=== PATIENT | female | born 1965 | race Caucasian/White ===

== ENCOUNTER 2022-03-03 07:35 | Outpatient (CLI) | payer OTHER, SELFPAY ==
[2022-03-03 10:15] LABS: Albumin* 4.4 g/dL (3.3-5.0)
[2022-03-03 10:16] LABS: Chloride* 102 mmol/L (96-114); Potassium* 4.2 mmol/L (3.6-5.1); Sodium* 134 mmol/L (135-149)
[2022-03-03 10:18] LABS: Carbon Dioxide* 19 mmol/L (20-32); Cholesterol* 238 mg/dL (90-199); Creatinine* 0.9 mg/dL (0.5-1.5); Estimated Glomerular Filt Rate 76 ml/min
[2022-03-03 10:19] LABS: Alanine Aminotransferase* 28 U/L (4-35); Alkaline Phosphatase* 53 U/L (40-150); Aspartate Amino Transferase* 34 U/L (12-35); Blood Urea Nitrogen* 29 mg/dL (7-30); Glucose* 163 mg/dL (60-115); Total Protein* 7.8 g/dL (6.0-8.3)
[2022-03-03 10:20] LABS: Calcium* 9.5 mg/dL (8.4-10.6); HDL Cholesterol* 25 mg/dL (>=50)
[2022-03-03 11:39] LABS: Triglycerides* 2804 mg/dL (40-149)
== END 2022-03-03 07:36 | disposition home or self-care (01) ==
PROVIDERS: Visit Provider Family Medicine
DX: E11.9 Type 2 diabetes mellitus without complications (principal); E78.5 Hyperlipidemia, unspecified
CPT/HCPCS: 80053; 80061

== ENCOUNTER 2022-12-11 07:57 | Outpatient (CLI) | payer BC, SELFPAY | END 2022-12-11 07:58 | disposition home or self-care (01) | PROVIDERS: PCP Family Medicine; Visit Provider Family Medicine | DX: E11.9 Type 2 diabetes mellitus without complications (principal); E78.1 Pure hyperglyceridemia; I10 Essential (primary) hypertension | CPT/HCPCS: 80053; 80061 ==

== ENCOUNTER 2023-10-08 08:40 | Outpatient (CLI) | payer BC, SELFPAY ==
--- OUTSIDE RECORDS SUMMARY | 2023-10-15 07:45 | XMS_ITS | Clinical Summary ---
Author Name Unknown Organization [facility] Address [place], [place] [address] Care Team Providers Care Glued Wood Tester Name Role Phone Cathleen Hebert MD Primary [...] by mouth at bedtime. 0 12/13/2016 Active bdkoz-4t-nqh-epa-fish oil (OMEGA-3 FISH OIL) 300-1,000 mg cap [...] LORI BILAT SCREEN Routine 05/13/2022 4:01 PM COMMERCIAL RELIEF DRIVER Encounter for screening mammogram for malignant neoplasm of breast LIPID PANEL Timed 02/23/2005 10:49 AM CDT GYNECOLOGICAL PANEL Timed 04/22/2004 5 :45 PM CDT from Last 3 Months or Most Recently Relevant to Health Maintenance Results * XR MAMMO LORI BILAT SCREEN (05/13/2022 4:01 PM COMMERCIAL RELIEF DRIVER) Anatomical Region Laterality Modality BREASTS, Breast Left, Breast Right Bilateral Mammography Impressions 05/13/2022 4:23 PM COMMERCIAL RELIEF DRIVER ??There is no radiographic evidence for malignancy. ??Recommend annual mammograms. MAMMOGRAM ASSESSMENT: ??ACR 2 Benign PATIENTS: You will also receive a letter with your examination results in an easy to read format. ??If you have questions about your results, please contact your referring provider. Narrative 05/13/2022 4:23 PM COMMERCIAL RELIEF DRIVER For Patients: As a result of the Century Cures Act, medical imaging exams and procedure reports are released immediately into your electronic medical record. You may view this report before your referring provider. If you have questions, please contact your health care provider. XR MAMMO LORI BILAT SCREEN [[id number]] CLINICAL HISTORY: ??This is an asymptomatic 56 [...] CDT) CHOLESTEROL,TOTAL 137 110 - 199 mg/dL [facility] TRIGLYCERIDES 556(H) 40 - 149 mg/dL [facility] HDL CHOLESTEROL 25(L) >40 mg/dL [facility] CHOL/HDL RATIO 5.48(H) <4.51 [facility] LDL CHOLESTEROL ?? Invalid LDL when Trig >400. [facility] PATIENT STATUS Fasting [facility] 02/23/2005 10:4 9 AM CDT 02/23/2005 5:21 PM CDT Dion Rand NP CHEMISTRY [facility] INTERNAL ZIP [address] [address] * GYNECOLOGICAL PANEL (04/22/2004 5:45 PM CDT) CYTOLOGY ??CYTOPATHOLOGY REPORT ??[facility] ??[facility] [address] [address] ? Status: Final Report ?[id number] ?? CLINICAL INFORMATION ?Reason for Visit ?: [...] 04/22/04 ?? ACCESSIONED: 04/23/04 ?? SIGNED: 04/24/04 [facility] 04/22/2004 5:45 PM CDT 04/23/2004 11:51 AM CDT Dion Rand NP PATHOLOGY/CYTOLOGY [facility] INTERNAL ZIP [address] [address] from Last 3 Months or Most Recently Relevant to Health Maintenance Care Teams Glued Wood Tester Relationship Specialty Start Date End Date Cathleen Hebert MD [address] [place] [address] PCP - General Family Practice 02/12/21
--- OUTSIDE RECORDS SUMMARY | 2023-10-15 07:45 | XMS_ITS | Clinical Summary ---
Author Name Unknown Organization [facility] Address [address] [place] [address] Phone [email or web address] Care Team Providers Care Entry Clerk Name Role Phone Unavailable Primary Care Provider [...]
--- OUTSIDE RECORDS SUMMARY | 2023-10-15 07:45 | XMS_ITS | Clinical Summary ---
Author Name Unknown Organization [facility] Address [address], [place] [address] Care Team Providers Care Tread Tuber Machine Operator Name Role Phone Cathleen Hebert MD Primary Care Provider Source Comments You are receiving this document as you are listed as the primary care provider,follow-up provider, or the patient has been referred to you for consultation.This is in compliance with the Medicare and[facility] EHR Incentive Program,which states Providers who transition their patient to another setting of careor provider of care or refers their patient to another provider of care shouldprovide summary care record for each transition of care or referral. [facility] Allergies No known active allergies Medications Medication [...] Recently Relevant to Health Maintenance Care Teams Tread Tuber Machine Operator Relationship Specialty Start Date End Date Cathleen Hebert MD [address] [place] [address] PCP - General Family Practice 04/01/22
--- OUTSIDE RECORDS SUMMARY | 2023-10-15 07:45 | XMS_ITS | Data Portability ---
Author Name Unknown Address [address] [place] [address] Phone [phone] Organization [facility], Main Office Address [address] [facility] [place] [address] Assessment Encounter Date Assessment Date Assessment LastModified by Organization Details LastModified Time 07/13/2022 07/13/2022 1. Basal carcinoma left forehead here for Mohs surgery Written and verbal informed consent obtained Verbally and with the digital board we discussed the length of the scar versus the width of the scar potential eyebrow elevation. Swelling, bruising, chance of infection chance of recurrence. Mohs case number [id number] Stage I: Curette debulking performed after local anesthesia was obtained 1% lidocaine with epinephrine after being cleansed with alcohol. 1 to 1/2 mm margins were taken revealing residual basal carcinoma at 1:00 and inflammation at 7:00 Stage II: No debulking performed. Peripheral rim from 11:00 to 3:00 taken through 1:00 and rim was taken from 9:00 to 7:00. There is no residual basal carcinoma Total stages 2 total sections 3 Final defect 1.5 cm Redundancy removed superior and laterally based advancement flap was performed. Undermined all directions 1 to 2 cm. 0 cm squared. Hemostasis obtained electrocautery closed with 3-0 Vicryl and a 3-0 Prolene to be removed in 8 days in [place]. Pressure dressing applied typewritten verbal wound care instructions given. [email or web address] Not available 07/18/2022 08:31:29 Plan of Treatment Reminders Order Date Submit Date Provider Last Modified By Organization Details Last Modified Time Details Appointments None record ed. Lab None record ed. Referral None record ed. Procedures None record ed. Surgeries None record ed. Imaging None record ed. Medication Orders None record ed. Patient TargetsNo targets recorded. Patient InstructionsNo instructions recorded. Reason for Referral None Reported. Results Created Date Observation Date Name Description Value Unit Range Abnormal Flag LastModifiedBy Organization Detail LastModifiedTime Result Notes None recorded. Medical Equipment None Reported. Medications Name Sig Start Date Stop Date Status Note LastModified by Organization Details LastModified Time hydrocodone 5 mg-acetamino phen 325 mg tablet TAKE 1 TABLET BY MOUTH EVERY 6 HOURS active Not Available Not Available No t Available minocycline 100 mg capsule TAKE 1 CAPSULE BY MOUTH EVERY 12 HOURS active Not Available Not Available No t Available sulfamethoxa zole 800 mg-trimethop rim 160 mg tablet TAKE 1 TABLET BY MOUTH TWICE DAILY active Not Available Not Available No t Available glimepiride 2 mg tablet TAKE 1 TABLET BY MOUTH DAILY active Not Available Not Available Not Available carvedilol 3.125 mg tablet TAKE 1 TABLET BY MOUTH TWICE DAILY active Not Available Not Available No t Available glimepiride 1 mg tablet TAKE 1 TABLET BY MOUTH EVERY MORNING WITH FOOD active Not Available Not Available No t Available amlodipine 10 mg tablet TAKE 1 TABLET BY MOUTH DAILY active Not Available Not Available Not Available gemfibrozil 600 mg tablet TAKE 1 TABLET BY MOUTH TWICE DAILY BEFORE MEALS active Not Available Not Available No t Available metformin 1,000 mg tablet TAKE 1 TABLET BY MOUTH TWICE DAILY WITH A MEAL active Not Available Not Available No t Available glimepiride 4 mg tablet TAKE 1 TABLET BY MOUTH DAILY active Not Available Not Available Not Available hydrochlorot hiazide 25 mg tablet TAKE 1 TABLET BY MOUTH DAILY active Not Available Not Available Not Available mupirocin 2 % topical ointment APPLY SMALL AMOUNT TOPICALLY TO THE AFFECTED AREA THREE TIMES DAILY active Not Available Not Available Not Available lisinopril 40 mg tablet TAKE 1 TABLET BY MOUTH DAILY active Not Available Not Available Not Available rosuvastatin 40 mg tablet TAKE 1 TABLET BY MOUTH DAILY active Not Available Not Available Not Available omega-3 acid ethyl esters 1 gram capsule TAKE FOUR CAPSULES DAILY active Not Available Not Available No t Available fenofibrate 160 mg tablet TAKE 1 TABLET BY MOUTH DAILY active Not Available Not Available Not Available BD Ultra-Fine Short Pen Needle 31 gauge x 5/16 USE DAILY active Not Available Not Available No t Available fenofibrate nanocrystall ized 145 mg tablet TAKE 1 TABLET BY MOUTH DAILY active Not Available Not Available Not Available Sure Comfort Pen Needle 30 gauge x 5/16 DIRECTED active Not Available Not Available Not Available Jardiance 25 mg tablet TAKE 1 TABLET BY MOUTH DAILY active Not Available Not Available Not Available Zhenaglmichelle ChangPen U-100 Insulin 100 unit/mL (3 mL) subcutaneous ADMINISTER 55 UNITS UNDER THE SKIN EVERY NIGHT AT BEDTIME active Not Available Not Available No t Available Vitals None Recorded Social History None recorded. Functional Status None recorded. Mental Status None recorded. Family History Nothing Reported. Medical History No medical history recorded. Gynecological HistoryNo gynecological history recorded. Obstetrics History GPAL:G 0 P 0 0 0 0 Past Encounters Encounter ID Performer Location Encounter Start Date Encounter Closed Date Diagnosis/Indication Diagnosis SNOMED-CT Code [id number] Daniel Kuhn MD Main Office [address] [facility] [address] [place] [address] 07/13/2022 10:00:55 07/18/2022 08:32:34 Basal cell carcinoma of forehead [id number] Health Concerns Section Related Observation LastModified by Organization Detai ls LastModified Time None Recorded Concern Status LastModified by Organization Details LastModified Time None Recorded Advance Directives Directive None Recorded Payers Encounter Date Sequence Insurance Name Policy Number Policy Galvan Covered Member ID Galvan Member ID Guarantor Name 07/13/2022 1 [facility] Valencia Castillo [id number] Beatriz Castillo Notes Date Note Type Note Provider Name and Address Organization Details Recorded Time 07/13/2022 text/html HPI Notes: 56-year-old female presents today for follow-up and Mohs surgery for biopsy-proven basal carcinoma left forehead. Accompanied by her during the preoperative consultation, the informed consent and stage I. He is not present for stage II and the closure he is in a separate room Her past medical history, family history and social history unchanged Daniel Kuhn MD [address] [facility], [place], [address], [facility] 07/18/2022 08:32:14 OBGyn Episode No OBEpisode recorded.
--- OUTSIDE RECORDS SUMMARY | 2023-10-15 07:46 | XMS_ITS | Encounter Summary ---
Author Name Unknown Organization [facility] Address [address] [place] [address] Care Team Providers Care Receiving Dock Checker Name Role Phone Daisy Radford PA-C Primary Care Pr ovider Daisy Radford PA-C Unavailable Encounter Details Date Type Department Care Team (Late st Contact Info) Description 03/05/2020 My[facility] Medical Advice [address] [address] Praveena Juares APRN BOW REHAIRER [address] [place] [address] [address] [place] [address] Social History Tobacco Use Types Packs/Day Years Used Date Smoking Tobacco: Never Smokeless Tobacco: Never Comments:NA Alcohol Use Standard Drinks/Week Comments No 0 (1 standard drink = 0.6 oz pur e alcohol) occasionally PHQ-2 Answer Date Recorded PHQ-2 Score 0 10/24/2018 Sex and Gender Information Value Date Recorded Sex Assigned at Female 07/06/2018 4:08 PM HAND STRIPER Gender Identity Female 07/06/2018 4:08 PM HAND STRIPER Sexual Orientation Straight 07/06/2018 4: 08 PM HAND STRIPER documented as of this encounter Plan of Treatment Not on file documented as of this encounter Visit Diagnoses Not on filedocumented in this encounter Care Teams Receiving Dock Checker Relationship Specialty Start Date End Date Daisy Radford PA-C [address] [place] [address] PCP - General Physician Four Slide Operator 12/19/13 Daisy Radford PA-C [address] [place] [address] Assigned PCP 12/24/13 05/15/22 documented as of this encounter
--- OUTSIDE RECORDS SUMMARY | 2023-10-15 07:46 | XMS_ITS | Encounter Summary ---
Author Name Unknown Organization [facility] Address [address] [place] [address] Care Team Providers Care Director Transition Name Role Phone Daisy Radford PA-C Primary Care Pr ovider Daisy Radford PA-C Unavailable Reason for Visit * Reason Onset Date Comments Forms 10/27/2019 Encounter Details Date Type Department Care Team (Late st Contact Info) Description 10/27/2019 MyC Medical Advice [address] [address] Daisy Radford PA-C [id number] [place] [address] Forms Social History Tobacco Use Types Packs/Day Years Used Date Smoking Tobacco: Never Smokeless Tobacco: Never Comments:NA Alcohol Use Standard Drinks/Week Comments No 0 (1 standard drink = 0.6 oz pur e alcohol) occasionally PHQ-2 Answer Date Recorded PHQ-2 Score 0 10/24/2018 Sex and Gender Information Value Date Recorded Sex Assigned at Female 07/06/2018 4:08 PM MANGLE TENDER Gender Identity Female 07/06/2018 4:08 PM MANGLE TENDER Sexual Orientation Straight 07/06/2018 4: 08 PM MANGLE TENDER documented as of this encounter Plan of Treatment Not on file documented as of this encounter Visit Diagnoses Not on filedocumented in this encounter Care Teams Director Transition Relationship Specialty Start Date End Date Daisy Radford PA-C [address] [place] [address] PCP - General Physician Thermocouple Tester 12/19/13 Daisy Radford PA-C [address] [place] [address] Assigned PCP 12/24/13 05/15/22 documented as of this encounter
--- OUTSIDE RECORDS SUMMARY | 2023-10-15 07:46 | XMS_ITS | Encounter Summary ---
Author Name Unknown Organization [facility] Address [address] [place] [address] Care Team Providers Care Flow Worker Name Role Phone Daisy Radford PA-C Primary Care Pr ovider Daisy Radford PA-C Unavailable Encounter Details Date Type Department Care Team (Late st Contact Info) Description 11/07/2019 MyC Medical Advice [address] [address] Maddie Lange RN Social History Tobacco Use Types Packs/Day Years Used Date Smoking Tobacco: Never Smokeless Tobacco: Never Comments:NA Alcohol Use Standard Drinks/Week Comments No 0 (1 standard drink = 0.6 oz pur e alcohol) occasionally PHQ-2 Answer Date Recorded PHQ-2 Score 0 10/24/2018 Sex and Gender Information Value Date Recorded Sex Assigned at Female 07/06/2018 4:08 PM HAY SORTER Gender Identity Female 07/06/2018 4:08 PM HAY SORTER Sexual Orientation Straight 07/06/2018 4: 08 PM HAY SORTER documented as of this encounter Plan of Treatment Not on file documented as of this encounter Visit Diagnoses Not on filedocumented in this encounter Care Teams Flow Worker Relationship Specialty Start Date End Date Daisy Radford PA-C [id number] [place] [address] PCP - General Physician Head Of Integrated Media 12/19/13 Daisy Radford PA-C [address] [place] [address] Assigned PCP 12/24/13 05/15/22 documented as of this encounter
--- OUTSIDE RECORDS SUMMARY | 2023-10-15 07:46 | XMS_ITS | Encounter Summary ---
Author Name Unknown Organization [facility] Address [address] [place] [address] Care Team Providers Care Plaster Die Maker Name Role Phone Jaden Barrett MD Primary Care Provider Daisy Radford PA-C Primary Care Pr ovider Sherry Gutierrez RN Unavailable Daisy Radford PA-C Unavailable Daisy Radford PA-C Unavailable Encounter Details Date Type Department Care Team (Late st Contact Info) Description 10/19/2010 MyC Medical Advice [facility] [id number] [place] [address] Jaden Barrett MD [address] [place] [address] Social History Tobacco Use Types Packs/Day Years Used Date Smoking Tobacco: Never Smokeless Tobacco: Never Alcohol Use Standard Drinks/Week Comments Yes 0 (1 standard drink = 0.6 oz pur e alcohol) occasionally Sex and Gender Information Value Date Recorded Sex Assigned at Female 07/06/2018 4:08 PM SPAR CAP BEVELER Gender Identity Female 07/06/2018 4:08 PM SPAR CAP BEVELER Sexual Orientation Straight 07/06/2018 4: 08 PM SPAR CAP BEVELER documented as of this encounter Plan of Treatment Not on file documented as of this encounter Visit Diagnoses Not on filedocumented in this encounter Care Teams Plaster Die Maker Relationship Specialty Start Date End Date Jaden Barrett MD PCP - General 07/02/06 12/18/13 Daisy Radford PA-C [address] [place] [address] PCP - General Physician Irrigation Installation Specialist 12/19/13 Daisy Radford PA-C [address] [place] [address] PCP - Assigned PCP 12/24/13 08/30/18 Sherry Gutierrez RN Clinic Arc Welding Machine Operator Primary Care - CC 10/11/1709/26 Daisy Radford PA-C [address] [place] [address] Assigned PCP 12/24/13 05/15/22 documented as of this encounter
--- OUTSIDE RECORDS SUMMARY | 2023-10-15 07:46 | XMS_ITS | Encounter Summary ---
Author Name Unknown Organization [facility] Address [address] [place] [address] Care Team Providers Care Monomer Recovery Operator Name Role Phone Jaden Barrett MD Primary Care Provider Daisy Radford PA-C Primary Care Pr ovider Sherry Gutierrez RN Unavailable Daisy Radford PA-C Unavailable Daisy Radford PA-C Unavailable Encounter Details Date Type Department Care Team (Late st Contact Info) Description 06/07/[address] [address] [facility] Social History Tobacco Use Types Packs/Day Years Used Date Smoking Tobacco: Never Smokeless Tobacco: Never Alcohol Use Standard Drinks/Week Comments Yes 0 (1 standard drink = 0.6 oz pur e alcohol) occasionally Sex and Gender Information Value Date Recorded Sex Assigned at Female 07/06/2018 4:08 PM CORPORATE TAX PREPARER Gender Identity Female 07/06/2018 4:08 PM CORPORATE TAX PREPARER Sexual Orientation Straight 07/06/2018 4: 08 PM CORPORATE TAX PREPARER documented as of this encounter Plan of Treatment Not on file documented as of this encounter Visit Diagnoses Not on filedocumented in this encounter Care Teams Monomer Recovery Operator Relationship Specialty Start Date End Date Nena Jaden [place] MD PCP - General 07/02/06 12/18/13 Daisy Radford PA-C [address] [place] [address] PCP - General Physician Produce Shipper 12/19/13 Daisy Radford PA-C [address] [place] [address] PCP - Assigned PCP 12/24/13 08/30/18 Sherry Gutierrez RN Clinic Transformation Manager Primary Care - CC 10/11/1709/26 Daisy Radford PA-C [address] [place] [address] Assigned PCP 12/24/13 05/15/22 documented as of this encounter
--- OUTSIDE RECORDS SUMMARY | 2023-10-15 07:46 | XMS_ITS | Referral Summary ---
Author Name Unknown Organization [facility] Address [address] [place] [address] Care Team Providers Care Application Packaging Consultant Name Role Phone Daisy Radford PA-C [...] Sex Assigned at Female 07/06/2018 4:08 PM PLATE HANGER Gender Identity Female 07/06/2018 4:08 PM PLATE HANGER Sexual Orientation Straight 07/06/2018 4: 08 PM PLATE HANGER Last Filed Vital Signs Vital Sign Reading Time Taken Comments Blood Pressure 139/82 05/15/2019 8:37 AM PLATE HANGER Pulse 86 05/15/2019 8:37 AM PLATE HANGER Temperature 36.7 ??C (98 ??F) 05/15/2019 8:37 AM PLATE HANGER Respiratory Rate 17 05/15/2019 8:37 AM PLATE HANGER Oxygen Saturation 98% 05/15/2019 8:37 AM PLATE HANGER Inhaled Oxygen Concentration - - Weight 88.7 kg (195 lb 9.6 oz) 05/15/2019 8:37 A M PLATE HANGER Height 163.8 cm (5' 4.5) 05/15/2019 8:37 AM PLATE HANGER Body Mass Index 33.06 05/15/2019 8:37 AM PLATE HANGER Plan of Treatment Not on file Advance Directives For more information, please contact: [phone] * Full Code (Latest Code Status on File) Date Activated Date Inactivated Comments 10/08/2017 7:25 AM * Full Code Date Activated Date Inactivated Comments 10/04/2017 11:55 PM 10/08/2017 7:25 AM Care Teams Application Packaging Consultant Relationship Specialty Start Date End Date Daisy Radford PA-C [address] [place] [address] PCP - General Physician Loan Documents Closer 12/19/13
--- OUTSIDE RECORDS SUMMARY | 2023-10-15 07:46 | XMS_ITS | Encounter Summary ---
Author Name Unknown Organization [facility] Address [address] [place] [address] Care Team Providers Care Digital Media Specialist Name Role Phone Daisy Radford PA-C Primary Care Pr ovider Daisy Radford PA-C Unavailable Daisy Radford PA-C Unavailable Encounter Details Date Type Department Care Team (Late st Contact Info) Description 04/05/2018 MyC Medical Advice [address] [address] Praveena Juares, LEEANNA HOLTER TECHNICIAN [address] [place] [address] [address] [place], [place] [address] Social History Tobacco Use Types Packs/Day Years Used Date Smoking Tobacco: Never Smokeless Tobacco: Never Comments:NA Alcohol Use Standard Drinks/Week Comments No 0 (1 standard drink = 0.6 oz pur e alcohol) occasionally Sex and Gender Information Value Date Recorded Sex Assigned at Female 07/06/2018 4:08 PM WOOD HEEL ATTACHER Gender Identity Female 07/06/2018 4:08 PM WOOD HEEL ATTACHER Sexual Orientation Straight 07/06/2018 4: 08 PM WOOD HEEL ATTACHER documented as of this encounter Plan of Treatment Not on file documented as of this encounter Visit Diagnoses Not on filedocumented in this encounter Care Teams Digital Media Specialist Relationship Specialty Start Date End Date Daisy Radford PA-C [address] [place] [address] PCP - General Physician Orthotic Fitter 12/19/13 Daisy Radford PA-C [address] [place] [address] PCP - Assigned PCP 12/24/13 08/30/18 Daisy Radford PA-C [address] [place] [address] Assigned PCP 12/24/13 05/15/22 documented as of this encounter
--- OUTSIDE RECORDS SUMMARY | 2023-10-15 07:46 | XMS_ITS | Encounter Summary ---
Author Name Unknown Organization [place] Address [address] [place] [address] Care Team Providers Care Email Designer Name Role Phone Diogo Kirk MD Primary Care Provider Daisy Radford PA-C Primary Care Pr ovider Sherry Gutierrez RN Unavailable Daisy Radford PA-C Unavailable Daisy Radford PA-C Unavailable Encounter Details Date Type Department Care Team (Late st Contact Info) Description 02/28/2010 Office Visit-[facility] [address] [place] [phone] Antonio Caceres MD Social History Tobacco Use Types Packs/Day Years Used Date Smoking Tobacco: Never Alcohol Use Standard Drinks/Week Comments Yes 0 (1 standard drink = 0.6 oz pur e alcohol) occasional Sex and Gender Information Value Date Recorded Sex Assigned at Female 07/06/2018 4:08 PM RETORT CONDENSER ATTENDANT Gender Identity Female 07/06/2018 4:08 PM RETORT CONDENSER ATTENDANT Sexual Orientation Straight 07/06/2018 4: 08 PM RETORT CONDENSER ATTENDANT documented as of this encounter Progress Notes * Antonio Caceres MD - 03/04/2010 2:03 PM CDT Progress Note Created by: Antonio Caceres M.D. DATE: 02/28/2010 BEATRIZ CHAUHAN DATE OF : 1965 AGE: [id number] years old Referring Physician: DIOGO KIRK Referring Clinic: [facility] CURRENT DIAGNOSES 1. 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 Actually [...] Past Medical Illnesses: pancreatitis Apr 2006, diabetes vbfxylhr-mfu-gglgtmj dependent Surgeries/Procedures - General: hysterectomy-subtotal Jun 2005, [...] Seat Belt Use - always; Occupation - [employer]; Residence - lives with and lives in [place] year round; Place of - [place]; Hours Worked - 40 hours per week; [...] does not really need to see a tumble tailstock turret lathe operator. She may be interested in another jokeor [...] on filedocumented in this encounter Care Teams Email Designer Relationship Specialty Start Date End Date Diogo Kirk MD PCP - General 07/02/06 12/18/13 Daisy Radford PA-C [address] [place] [address] PCP - General Physician Automobile Seat Cover Installer 12/19/13 Dasiy Radford PA-C [address] [place] [address] PCP - Assigned PCP 12/24/13 08/30/18 Sherry Gutierrez RN Clinic Paver Operator Primary Care - CC 10/11/1709/26 Daisy Radford PA-C [address] [place] [address] Assigned PCP 12/24/13 05/15/22 documented as of this encounter
--- OUTSIDE RECORDS SUMMARY | 2023-10-15 07:46 | XMS_ITS | Encounter Summary ---
Author Name Unknown Organization [place] Address [address] [place] [address] Care Team Providers Care Automotive Painter Name Role Phone Daisy Radford PA-C Primary Care Pr ovider Daisy Radford PA-C Unavailable Daisy Radford PA-C Unavailable Encounter Details Date Type Department Care Team (Late st Contact Info) Description 08/19/2018 MyC Medical Advice [address] [phone] Praveena Juares, DIE FINISHER FORGING CHANNEL MACHINE OPERATOR [address] [place] [address] [address] [place], [place] [address] Social History Tobacco Use Types Packs/Day Years Used Date Smoking Tobacco: Never Smokeless Tobacco: Never Comments:NA Alcohol Use Standard Drinks/Week Comments No 0 (1 standard drink = 0.6 oz pur e alcohol) occasionally PHQ-2 Answer Date Recorded PHQ-2 Score 0 07/05/2018 Sex and Gender Information Value Date Recorded Sex Assigned at Female 07/06/2018 4:08 PM VP ACCOUNT DIRECTOR Gender Identity Female 07/06/2018 4:08 PM VP ACCOUNT DIRECTOR Sexual Orientation Straight 07/06/2018 4: 08 PM VP ACCOUNT DIRECTOR documented as of this encounter Plan of Treatment Not on file documented as of this encounter Visit Diagnoses Not on filedocumented in this encounter Care Teams Automotive Painter Relationship Specialty Start Date End Date Daisy Radford PA-C [address] [place] [address] PCP - General Physician Logistic Specialist 12/19/13 Daisy Radford PA-C [address] [place] [address] PCP - Assigned PCP 12/24/13 08/30/18 Daisy Radford PA-C [address] [place] [address] Assigned PCP 12/24/13 05/15/22 documented as of this encounter
--- OUTSIDE RECORDS SUMMARY | 2023-10-15 07:46 | XMS_ITS | Encounter Summary ---
Author Name Unknown Organization [place] Address [address] [place] [address] Care Team Providers Care Patient'S Librarian Name Role Phone Daisy Radford PA-C Primary Care Pr ovider Daisy Radford PA-C Unavailable Reason for Referral * Consultation (Routine) - Closed Specialty Diagnoses / Procedures Referred By Monik gilbert Referred To Contact Diagnoses Hypertriglyceridemia Type 2 diabetes mellitus with other specified complication, with long-term current use of insulin (H) Daisy Radford PA-C [address] [place] [address] MULTIPLE LOCATIONS Referral ID Status Reason Start Date Expiration Date Visits Re quested Visits Authorized [id number] Closed 05/22/2019 05/21/2020 1 1 Comments Your provider has referred you to: [facility]: [facility] [email or web address] [facility]: [facility] [email or web address] [facility]: [email or web address] [facility]: [facility] [email or web address] [facility] Please be aware that coverage of these services is subject to the terms and limitations of your health insurance plan. Call member services at your health plan with any benefit or coverage questions. Please bring the following to your appointment: >> Any x-rays, CTs or MRIs which have been performed. Contact the facility where they were done to arrange for picker prior to your scheduled appointment. >> List of current medications >> This referral request >> Any documents/labs given to you for this referral NG MACHINE OPERATOR Reason for Visit * Reason Onset Date Comments MyChart Communication 05/22/2019 Encounter Details Date Type Department Care Team (Latest Contact Info) Description 05/22/2019 [facility] [address] [phone] Daisy Radford PA-C [id number] [place] [address] MyChart Communication Social History Tobacco Use Types Packs/Day Years Used Date Smoking Tobacco: Never Smokeless Tobacco: Never Comments:NA Alcohol Use Standard Drinks/Week Comments No 0 (1 standard drink = 0.6 oz pur e alcohol) occasionally PHQ-2 Answer Date Recorded PHQ-2 Score 0 10/24/2018 Sex and Gender Information Value Date Recorded Sex Assigned at Female 07/06/2018 4:08 PM TIEING MACHINE OPERATOR Gender Identity Female 07/06/2018 4:08 PM TIEING MACHINE OPERATOR Sexual Orientation Straight 07/06/2018 4: 08 PM TIEING MACHINE OPERATOR documented as of this encounter [...] (H) documented in this encounter Care Teams Patient'S Librarian Relationship Specialty Start Date End Date Daisy Radford PA-C [address] [place] [address] PCP - General Physician Land Development Project Manager 12/19/13 Daisy Radford PA-C [address] [place] [address] Assigned PCP 12/24/13 05/15/22 documented as of this encounter
--- OUTSIDE RECORDS SUMMARY | 2023-10-15 07:46 | XMS_ITS | Encounter Summary ---
Author Name Unknown Organization [facility] Address [address] [place] [address] Care Team Providers Care Fabric Worker Fitter Name Role Phone Jaden Barrett MD Primary Care Provider Daisy Radford PA-C Primary Care Pr ovider Sheryr Gutierrez RN Unavailable Daisy Radford PA-C Unavailable Daisy Radford PA-C Unavailable Encounter Details Date Type Department Care Team (Late st Contact Info) Description 08/12/2010 [facility] [address] [address] [facility] Social History Tobacco Use Types Packs/Day Years Used Date Smoking Tobacco: Never Alcohol Use Standard Drinks/Week Comments Yes 0 (1 standard drink = 0.6 oz pur e alcohol) occasional Sex and Gender Information Value Date Recorded Sex Assigned at Female 07/06/2018 4:08 PM PEDIGREE TRACER Gender Identity Female 07/06/2018 4:08 PM PEDIGREE TRACER Sexual Orientation Straight 07/06/2018 4: 08 PM PEDIGREE TRACER documented as of this encounter Plan of Treatment Not on file documented as of this encounter Visit Diagnoses Not on filedocumented in this encounter Care Teams Fabric Worker Fitter Relationship Specialty Start Date End Date Jaden Barrett MD PCP - General 07/02/06 12/18/13 Daisy Radford PA-C [address] [place] [address] PCP - General Physician Assistant Offset Press Operator 12/19/13 Daisy Radford PA-C [address] [place] [address] PCP - Assigned PCP 12/24/13 08/30/18 Sherry Gutierrez RN Clinic Bowl Attendant Primary Care - CC 10/11/1709/26 Daisy Radford PA-C [address] [place] [address] Assigned PCP 12/24/13 05/15/22 documented as of this encounter
--- OUTSIDE RECORDS SUMMARY | 2023-10-15 07:46 | XMS_ITS | Encounter Summary ---
Author Name Unknown Organization [place] Address [address] [place] [address] Care Team Providers Care Sweet Pickle Maker Name Role Phone Daisy Radford PA-C Primary Care Pr ovider Daisy Radford PA-C Unavailable Daisy Radford PA-C Unavailable Reason for Visit * Reason Comments Medication Refill Amaryl, Crestor Encounter Details Date Type Department Care Team (Late st Contact Info) Description 12/17/[address] [phone] Daisy Radford PA-C [address] [place] [address] Medication Refill (Amaryl, Crestor) Social History Tobacco Use Types Packs/Day Years Used Date Smoking Tobacco: Never Smokeless Tobacco: Never Comments:NA Alcohol Use Standard Drinks/Week Comments No 0 (1 standard drink = 0.6 oz pur e alcohol) occasionally Sex and Gender Information Value Date Recorded Sex Assigned at Female 07/06/2018 4:08 PM PLAY READER Gender Identity Female 07/06/2018 4:08 PM PLAY READER Sexual Orientation Straight 07/06/2018 4: 08 PM PLAY READER documented as of this encounter Miscellaneous Notes [...] if appropriate. Teresa Nova RN, BSN, PHN [facility] RN * Telephone Encounter - Teresa Lemos [...] CDT [facility] with Daisy Radford PA-C [facility] [address] [place] [phone] Passed - Patient has documented LDL [...] CDT Anson Thomason with Daisy Radford PA-C [facility] [address] [place] [phone] documented in this encounter Plan of Treatment Not on file documented as of this encounter Visit Diagnoses Diagnosis Type 2 diabetes mellitus without complication, without long-term current use of insulin (H) Pure hyperglyceridemia Type 2 diabetes mellitus without complication, with long-term current use of insulin (H) documented in this encounter Care Teams Sweet Pickle Maker Relationship Specialty Start Date End Date Daisy Radford PA-C [address] [place] [address] PCP - General Physician Carving Machine Operator 12/19/13 Daisy Radford PA-C [address] [place] [address] PCP - Assigned PCP 12/24/13 08/30/18 Daisy Radford PA-C [address] [place] [address] Assigned PCP 12/24/13 05/15/22 documented as of this encounter
--- OUTSIDE RECORDS SUMMARY | 2023-10-15 07:46 | XMS_ITS | Encounter Summary ---
Author Name Unknown Organization [facility] Address [address] [place] [address] Care Team Providers Care Kiln Burner Helper Name Role Phone Daisy Radford PA-C Primary Care Pr ovider Daisy Radford PA-C Unavailable Encounter Details Date Type Department Care Team (Late st Contact Info) Description 04/26/2019 MyC Medical Advice [address] [phone] Praveena Juares APRN QUALITY AUDITOR [address] [place] [address] [address] [place] [address] Social History Tobacco Use Types Packs/Day Years Used Date Smoking Tobacco: Never Smokeless Tobacco: Never Comments:NA Alcohol Use Standard Drinks/Week Comments No 0 (1 standard drink = 0.6 oz pur e alcohol) occasionally PHQ-2 Answer Date Recorded PHQ-2 Score 0 10/24/2018 Sex and Gender Information Value Date Recorded Sex Assigned at Female 07/06/2018 4:08 PM GLOBAL COMMODITY MANAGER Gender Identity Female 07/06/2018 4:08 PM GLOBAL COMMODITY MANAGER Sexual Orientation Straight 07/06/2018 4: 08 PM GLOBAL COMMODITY MANAGER documented as of this encounter Plan of Treatment Not on file documented as of this encounter Visit Diagnoses Not on filedocumented in this encounter Care Teams Kiln Burner Helper Relationship Specialty Start Date End Date Daisy Radford PA-C [address] [place] [address] PCP - General Physician Mechanical Piping Designer 12/19/13 Daisy Radford PA-C [address] [place] [address] Assigned PCP 12/24/13 05/15/22 documented as of this encounter
--- OUTSIDE RECORDS SUMMARY | 2023-10-15 07:46 | XMS_ITS | Encounter Summary ---
Author Name Unknown Organization [facility] Address [address] [place] [address] Care Team Providers Care Talent Acquisition Program Manager Name Role Phone Daisy Radford PA-C Primary Care Pr ovider Daisy Radford PA-C Unavailable Encounter Details Date Type Department Care Team (Late st Contact Info) Description 05/01/2020 MyC Medical Advice [address] [phone] Praveena Juares APRN CHILLING HOOD OPERATOR [address] [place] [address] [address] [place] [address] Social History Tobacco Use Types Packs/Day Years Used Date Smoking Tobacco: Never Smokeless Tobacco: Never Comments:NA Alcohol Use Standard Drinks/Week Comments No 0 (1 standard drink = 0.6 oz pur e alcohol) occasionally PHQ-2 Answer Date Recorded PHQ-2 Score 0 10/24/2018 Sex and Gender Information Value Date Recorded Sex Assigned at Female 07/06/2018 4:08 PM BULK COOLERS INSTALLER Gender Identity Female 07/06/2018 4:08 PM BULK COOLERS INSTALLER Sexual Orientation Straight 07/06/2018 4: 08 PM BULK COOLERS INSTALLER documented as of this encounter Plan of Treatment Not on file documented as of this encounter Visit Diagnoses Not on filedocumented in this encounter Care Teams Talent Acquisition Program Manager Relationship Specialty Start Date End Date Daisy Radford PA-C [address] [place] [address] PCP - General Physician Retrieval Specialist 12/19/13 Daisy Radford PA-C [address] [place] [address] Assigned PCP 12/24/13 05/15/22 documented as of this encounter
--- OUTSIDE RECORDS SUMMARY | 2023-10-15 07:46 | XMS_ITS | Encounter Summary ---
Author Name Unknown Organization [facility] Address [address] [place] [address] Care Team Providers Care Loom Setter Name Role Phone Daisy Radford PA-C Primary Care Pr ovider Daisy Radford PA-C Unavailable Daisy Radford PA-C Unavailable Reason for Visit * Reason Onset Date Comments Refill Request 08/19/2018 hydrochlorothiaz srikanth 12.5 MG TABS tablet Refill Request 08/19/2018 glimepiride (AMA RYL) 2 MG tablet Encounter Details Date Type Department Care Team (Late st Contact Info) Description 08/19/2018 Refill [facility] [id number] [place] [phone] Daisy Radford PA-C [address] [place] [address] Refill Request (hydrochlorothiazide 12.5 MG [...] Sex Assigned at Female 07/06/2018 4:08 PM COMPRESSED GASES TESTER Gender Identity Female 07/06/2018 4:08 PM COMPRESSED GASES TESTER Sexual Orientation Straight 07/06/2018 4: 08 PM COMPRESSED GASES TESTER documented as of this encounter Miscellaneous Notes * Telephone Encounter - Praveena Juares RN - 08/19/2018 11:12 AM CST Routing refill request to provider for review/approval because: Labs out of range: BP Labs not current: NA Mychart sent to patient requesting appt. Pt was due in April Pended for 30 days Praveena Juares RN, BSN RESSED GASES TESTER * Telephone Encounter - Nadeem Valle - [...] the past 12 mos. Nadeem Valle XRT RESSED GASES TESTER documented in this encounter Plan of Treatment Not on file documented as of this encounter Visit Diagnoses Diagnosis Essential hypertension with goal blood pressure less than 140/90 Type 2 diabetes mellitus without complication, with long-term current use of insulin (H) documented in this encounter Care Teams Loom Setter Relationship Specialty Start Date End Date Daisy Radford PA-C [address] [place] [address] PCP - General Physician Gig Tender 12/19/13 Daisy Radford PA-C [address] [place] [address] PCP - Assigned PCP 12/24/13 08/30/18 Daisy Radford PA-C [address] [place] [address] Assigned PCP 12/24/13 05/15/22 documented as of this encounter
--- OUTSIDE RECORDS SUMMARY | 2023-10-15 07:46 | XMS_ITS | Clinical Summary ---
Author Name Unknown Organization [facility] Address [address] [place] [address] Care Team Providers Care Cup Setter Lockstitch Name Role Phone Daisy Radford PA-C Primary [...] Sex Assigned at Female 07/06/2018 4:08 PM FLORIST DESIGNER Gender Identity Female 07/06/2018 4:08 PM FLORIST DESIGNER Sexual Orientation Straight 07/06/2018 4: 08 PM FLORIST DESIGNER Last Filed Vital Signs Vital Sign Reading Time Taken Comments Blood Pressure 139/82 05/15/2019 8:37 AM FLORIST DESIGNER Pulse 86 05/15/2019 8:37 AM FLORIST DESIGNER Temperature 36.7 ??C (98 ??F) 05/15/2019 8:37 AM FLORIST DESIGNER Respiratory Rate 17 05/15/2019 8:37 AM FLORIST DESIGNER Oxygen Saturation 98% 05/15/2019 8:37 AM FLORIST DESIGNER Inhaled Oxygen Concentration - - Weight 88.7 kg (195 lb 9.6 oz) 05/15/2019 8:37 A M FLORIST DESIGNER Height 163.8 cm (5' 4.5) 05/15/2019 8:37 AM FLORIST DESIGNER Body Mass Index 33.06 05/15/2019 8:37 AM FLORIST DESIGNER Plan of Treatment Not on file Advance Directives For more information, please contact: [phone] * Full Code (Latest Code Status on File) Date Activated Date Inactivated Comments 10/08/2017 7:25 AM * Full Code Date Activated Date Inactivated Comments 10/04/2017 11:55 PM 10/08/2017 7:25 AM Care Teams Cup Setter Lockstitch Relationship Specialty Start Date End Date Daisy Radford PA-C [address] [place] [address] PCP - General Physician Substance Abuse Nurse 12/19/13
--- OUTSIDE RECORDS SUMMARY | 2023-10-15 07:46 | XMS_ITS | Encounter Summary ---
Author Name Unknown Organization [facility] Address [address] [place] [address] Care Team Providers Care Brusher Warp Name Role Phone Daisy Radford PA-C Primary Care Pr ovider Sherry Gutierrez RN Unavailable Daisy Radford PA-C Unavailable Daisy Radford PA-C Unavailable Encounter Details Date Type Department Care Team (Late st Contact Info) Description 03/08/2015 [facility] Medical Advice [address] [address] Martita Fernandes, [facility] Social History Tobacco Use Types Packs/Day Years Used Date Smoking Tobacco: Never Smokeless Tobacco: Never Alcohol Use Standard Drinks/Week Comments Yes 0 (1 standard drink = 0.6 oz pur e alcohol) occasionally Sex and Gender Information Value Date Recorded Sex Assigned at Female 07/06/2018 4:08 PM PHYSIOGNOMIST Gender Identity Female 07/06/2018 4:08 PM PHYSIOGNOMIST Sexual Orientation Straight 07/06/2018 4: 08 PM PHYSIOGNOMIST documented as of this encounter Plan of Treatment Not on file documented as of this encounter Visit Diagnoses Not on filedocumented in this encounter Care Teams Brusher Warp Relationship Specialty Start Date End Date Daisy Radford PA-C [address] [place] [address] PCP - General Physician Heavy Equipment Technician 12/19/13 Daisy Radford PA-C [address] [place] [address] PCP - Assigned PCP 12/24/13 08/30/18 Sherry Gutierrez, [facility] Clinic Community Engagement Leader Primary Care - CC 10/11/1709/26 Daisy Radford PA-C [address] [place] [address] Assigned PCP 12/24/13 05/15/22 documented as of this encounter
--- OUTSIDE RECORDS SUMMARY | 2023-10-15 07:46 | XMS_ITS | Encounter Summary ---
Author Name Unknown Organization [place] Address [address] [place] [address] Care Team Providers Care Community Affairs Director Name Role Phone Daisy Radford PA-C Primary Care Pr ovider Sherry Gutierrez RN Unavailable [phone] Daisy Radford PA-C Unavailable Daisy Radford PA-C Unavailable Reason for Visit * Reason Onset Date Comments Refill Request 02/10/2017 Encounter Details Date Type Department Care Team (Late st Contact Info) Description 02/10/2017 MyC Refill [facility] [id number] [place] [phone] Daisy Radford PA-C [address] [place], [place] [id number] Refill Request Social History Tobacco Use Types Packs/Day Years Used Date Smoking Tobacco: Never Smokeless Tobacco: Never Comments:NA Alcohol Use Standard Drinks/Week Comments No 0 (1 standard drink = 0.6 oz pur e alcohol) occasionally Sex and Gender Information Value Date Recorded Sex Assigned at Female 07/06/2018 4:08 PM HOME HEALTH LVN Gender Identity Female 07/06/2018 4:08 PM HOME HEALTH LVN Sexual Orientation Straight 07/06/2018 4: 08 PM HOME HEALTH LVN documented as of this encounter Miscellaneous Notes [...] # refills: 3 Last Office Visit with [facility] or [facility] prescribing provider: 02/01/16 Next 5 appointments (look out 90 days) Feb 23, 2017 8:30 AM CDT Anson Thomason with Daisy Radford PA-C [facility] [id number] [place] [address] BP Readings from Last 3 Encounters: [...] RN - 02/10/2017 12:03 PM CDTMessage [facility]: Original authorizing provider: STEFFEN Rodriguez would [...] MG tablet [Daisy Radford PA-C] Preferred pharmacy: [facility] - [place], [place] [facility] [address] [facility] Comment: I've scheduled an appointment with Daisy [...] 140/90 documented in this encounter Care Teams Community Affairs Director Relationship Specialty Start Date End Date Daisy Radford PA-C [address] [place] [address] PCP - General Physician Environmental Protection Geologist 12/19/13 Daisy Radford PA-C [address] [place] [address] PCP - Assigned PCP 12/24/13 08/30/18 Sherry Gutierrez RN Clinic Communication Specialist Primary Care - CC 10/11/1709/26 Daisy Radford PA-C [address] [place] [address] Assigned PCP 12/24/13 05/15/22 documented as of this encounter
--- OUTSIDE RECORDS SUMMARY | 2023-10-15 07:46 | XMS_ITS | Encounter Summary ---
Author Name Unknown Organization [place] Address [address] [place] [address] Care Team Providers Care Senior Physical Therapist Name Role Phone Daisy Radford PA-C Primary Care Pr ovider Daisy Radford PA-C Unavailable Daisy Radford PA-C Unavailable Encounter Details Date Type Department Care Team (Late st Contact Info) Description 01/03/2018 MyC Medical Advice [address] [address] Praveena Juares, LEEANNA PLANNING MANAGER [address] [place] [address] [address] [place], [place] [address] Social History Tobacco Use Types Packs/Day Years Used Date Smoking Tobacco: Never Smokeless Tobacco: Never Comments:NA Alcohol Use Standard Drinks/Week Comments No 0 (1 standard drink = 0.6 oz pur e alcohol) occasionally Sex and Gender Information Value Date Recorded Sex Assigned at Female 07/06/2018 4:08 PM WATER PLANT PUMP OPERATOR Gender Identity Female 07/06/2018 4:08 PM WATER PLANT PUMP OPERATOR Sexual Orientation Straight 07/06/2018 4: 08 PM WATER PLANT PUMP OPERATOR documented as of this encounter Plan of Treatment Not on file documented as of this encounter Visit Diagnoses Not on filedocumented in this encounter Care Teams Senior Physical Therapist Relationship Specialty Start Date End Date Daisy Radford PA-C [address] [place] [address] PCP - General Physician Winder Helper 12/19/13 Daisy Radford PA-C [address] [place] [address] PCP - Assigned PCP 12/24/13 08/30/18 Daisy Radford PA-C [address] [place] [address] Assigned PCP 12/24/13 05/15/22 documented as of this encounter
--- OUTSIDE RECORDS SUMMARY | 2023-10-15 07:46 | XMS_ITS | Encounter Summary ---
Author Name Unknown Organization [facility] Address [address] [place] [address] Care Team Providers Care Entry Level Installation Technician Name Role Phone Jaden Barrett MD Primary Care Provider Daisy Radford PA-C Primary Care Pr ovider Sherry Gutierrez RN Unavailable [phone] Daisy Radford PA-C Unavailable Daisy Radford PA-C Unavailable Encounter Details Date Type Department Care Team (Late st Contact Info) Description 05/20/[address] [address] [facility] Social History Tobacco Use Types Packs/Day Years Used Date Smoking Tobacco: Never Smokeless Tobacco: Never Alcohol Use Standard Drinks/Week Comments Yes 0 (1 standard drink = 0.6 oz pur e alcohol) occasionally Sex and Gender Information Value Date Recorded Sex Assigned at Female 07/06/2018 4:08 PM CLINICAL NURSE EDUCATOR Gender Identity Female 07/06/2018 4:08 PM CLINICAL NURSE EDUCATOR Sexual Orientation Straight 07/06/2018 4: 08 PM CLINICAL NURSE EDUCATOR documented as of this encounter Plan of Treatment Not on file documented as of this encounter Visit Diagnoses Not on filedocumented in this encounter Care Teams Entry Level Installation Technician Relationship Specialty Start Date End Date Nena Jaden Palafox MD PCP - General 07/02/06 12/18/13 Daisy Radford PA-C [address] [place] [address] PCP - General Physician Java Performance Engineer 12/19/13 Dasiy Radford PA-C [address] [place] [address] PCP - Assigned PCP 12/24/13 08/30/18 Sherry Gutierrez RN Clinic Former Hand Primary Care - CC 10/11/1709/26 Daisy Radford PA-C [address] [place] [address] Assigned PCP 12/24/13 05/15/22 documented as of this encounter
--- OUTSIDE RECORDS SUMMARY | 2023-10-15 07:46 | XMS_ITS | Encounter Summary ---
Author Name Unknown Organization [facility] Address [address] [place] [address] Care Team Providers Care Spreading Machine Operator Name Role Phone Daisy Radford PA-C Primary Care Pr ovider Sherry Gutierrez RN Unavailable Daisy Radford PA-C Unavailable Daisy Radford PA-C Unavailable Encounter Details Date Type Department Care Team (Late st Contact Info) Description 12/09/2015 [facility] Medical Advice [address] [address] Praveena Juares, SVP DIGITAL SALES FOOD & COOKING MARKETING DIRECTOR ASSISTED LIVING [address] [place] [address] [address] [place] [address] Social History Tobacco Use Types Packs/Day Years Used Date Smoking Tobacco: Never Smokeless Tobacco: Never Comments:NA Alcohol Use Standard Drinks/Week Comments No 0 (1 standard drink = 0.6 oz pur e alcohol) occasionally Sex and Gender Information Value Date Recorded Sex Assigned at Female 07/06/2018 4:08 PM BUSINESS MANAGEMENT PROFESSOR Gender Identity Female 07/06/2018 4:08 PM BUSINESS MANAGEMENT PROFESSOR Sexual Orientation Straight 07/06/2018 4: 08 PM BUSINESS MANAGEMENT PROFESSOR documented as of this encounter Plan of Treatment Not on file documented as of this encounter Visit Diagnoses Not on filedocumented in this encounter Care Teams Spreading Machine Operator Relationship Specialty Start Date End Date Daisy Radford PA-C [address] [place] [address] PCP - General Physician Health Care Specialist 12/19/13 Daisy Radford PA-C [address] [place] [address] PCP - Assigned PCP 12/24/13 08/30/18 Sherry Gutierrez RN Clinic Rehabilitation Nurse Primary Care - CC 10/11/1709/26 Daisy Radford PA-C [address] [place] [address] Assigned PCP 12/24/13 05/15/22 documented as of this encounter
--- OUTSIDE RECORDS SUMMARY | 2023-10-15 07:46 | XMS_ITS | Encounter Summary ---
Author Name Unknown Organization [facility] Address [address] [place] [address] Care Team Providers Care Beef Grinder Name Role Phone Daisy Radford PA-C Primary Care Pr ovider Daisy Radford PA-C Unavailable Daisy Radford PA-C Unavailable Encounter Details Date Type Department Care Team (Late st Contact Info) Description 11/18/2017 My[facility] Medical Advice [facility] [id number] [place] [address] Daisy Radford PA-C [id number] [place] [address] Social History Tobacco Use Types Packs/Day Years Used Date Smoking Tobacco: Never Smokeless Tobacco: Never Comments:NA Alcohol Use Standard Drinks/Week Comments No 0 (1 standard drink = 0.6 oz pur e alcohol) occasionally Sex and Gender Information Value Date Recorded Sex Assigned at Female 07/06/2018 4:08 PM PUBLIC HEALTH NURSE Gender Identity Female 07/06/2018 4:08 PM PUBLIC HEALTH NURSE Sexual Orientation Straight 07/06/2018 4: 08 PM PUBLIC HEALTH NURSE documented as of this encounter Miscellaneous Notes * Telephone Encounter - Maddie Lange RN - 11/18/2017 2:55 PM CDT See my chart and refill encounter Maddie Lange RN documented in this encounter Plan of Treatment Not on file documented as of this encounter Visit Diagnoses Not on filedocumented in this encounter Care Teams Beef Grinder Relationship Specialty Start Date End Date Daisy Radford PA-C [address] [place] [address] PCP - General Physician Mounter Sousaphones 12/19/13 Daisy Radford PA-C [address] [place] [address] PCP - Assigned PCP 12/24/13 08/30/18 Daisy Radford PA-C [address] [place] [address] Assigned PCP 12/24/13 05/15/22 documented as of this encounter
--- OUTSIDE RECORDS SUMMARY | 2023-10-15 07:46 | XMS_ITS | Encounter Summary ---
Author Name Unknown Organization [facility] Address [address] [place] [address] Care Team Providers Care Land Use Planner Name Role Phone Daisy Radford PA-C Primary Care Pr ovider Sherry Gutierrez RN Unavailable Daisy Radford PA-C Unavailable Daisy Radford PA-C Unavailable Encounter Details Date Type Department Care Team (Late st Contact Info) Description 04/02/2017 My[facility] Medical Advice [address] [address] Daisy Radford PA-C [address] [place] [address] Hypertriglyceridemia ; Hyperlipidemia LDL goal <100 Social History Tobacco Use Types Packs/Day Years Used Date Smoking Tobacco: Never Smokeless Tobacco: Never Comments:NA Alcohol Use Standard Drinks/Week Comments No 0 (1 standard drink = 0.6 oz pur e alcohol) occasionally Sex and Gender Information Value Date Recorded Sex Assigned at Female 07/06/2018 4:08 PM PLATE DRILLER Gender Identity Female 07/06/2018 4:08 PM PLATE DRILLER Sexual Orientation Straight 07/06/2018 4: 08 PM PLATE DRILLER documented as of this encounter Plan of Treatment Not on file documented as of this encounter Visit Diagnoses Diagnosis Hypertriglyceridemia Pure hyperglyceridemia Hyperlipidemia LDL goal <100 Other and unspecified hyperlipidemia documented in this encounter Care Teams Land Use Planner Relationship Specialty Start Date End Date Daisy Radford PA-C [address] [place] [address] PCP - General Physician Door To Door Selling Distributor 12/19/13 Daisy Radford PA-C [address] [place] [address] PCP - Assigned PCP 12/24/13 08/30/18 Sherry Gutierrez RN Clinic Senior Administrative Support Primary Care - CC 10/11/1709/26 Daisy Radford PA-C [address] [place] [address] Assigned PCP 12/24/13 05/15/22 documented as of this encounter
--- OUTSIDE RECORDS SUMMARY | 2023-10-15 07:46 | XMS_ITS | Encounter Summary ---
Author Name Unknown Organization [facility] Address [address] [place] [address] Care Team Providers Care Concrete Pump Operator Helper Name Role Phone Jaden Barrett MD Primary Care Provider Daisy Radford PA-C Primary Care Pr ovider Sherry Gutierrez RN Unavailable [phone] Daisy Radford PA-C Unavailable Daisy Radford PA-C Unavailable Encounter Details Date Type Department Care Team (Late st Contact Info) Description 11/04/2011 MyC Medical Advice [facility] [id number] [place] [address] Jaden Barrett MD [address] [place] [phone] Social History Tobacco Use Types Packs/Day Years Used Date Smoking Tobacco: Never Smokeless Tobacco: Never Alcohol Use Standard Drinks/Week Comments Yes 0 (1 standard drink = 0.6 oz pur e alcohol) occasionally Sex and Gender Information Value Date Recorded Sex Assigned at Female 07/06/2018 4:08 PM CLOUD SECURITY ARCHITECT Gender Identity Female 07/06/2018 4:08 PM CLOUD SECURITY ARCHITECT Sexual Orientation Straight 07/06/2018 4: 08 PM CLOUD SECURITY ARCHITECT documented as of this encounter Plan of Treatment Not on file documented as of this encounter Visit Diagnoses Not on filedocumented in this encounter Care Teams Concrete Pump Operator Helper Relationship Specialty Start Date End Date Jaden Barrett MD PCP - General 07/02/06 12/18/13 Daisy Radford PA-C [address] [place] [address] PCP - General Physician Tool And Die Maker Apprentice 12/19/13 Daisy Radford PA-C [address] [place] [address] PCP - Assigned PCP 12/24/13 08/30/18 Sherry Gutierrez RN Clinic Administrative Tech Primary Care - CC 10/11/1709/26 Daisy Radford PA-C [address] [place] [address] Assigned PCP 12/24/13 05/15/22 documented as of this encounter
== END 2023-10-08 08:41 | disposition home or self-care (01) ==
LOC: NFLDREF 10-15 07:43
PROVIDERS: PCP Family Medicine; Referring Provider Family Medicine; Visit Provider Family Medicine
DX: E11.42 Type 2 diabetes mellitus with diabetic polyneuropathy (principal); I10 Essential (primary) hypertension; Z13.9 Encounter for screening, unspecified; Z79.4 Long term (current) use of insulin; R39.89 Other symptoms and signs involving the genitourinary system; E78.5 Hyperlipidemia, unspecified
CPT/HCPCS: 80053; 80061; 87086

== ENCOUNTER 2023-10-12 07:44 | Outpatient (CLI) | payer BC, SELFPAY ==
--- OUTSIDE RECORDS SUMMARY | 2023-10-12 07:46 | XMS_ITS | Clinical Summary ---
Author Name Unknown Organization [facility] Address [place], [place] [address] Care Team Providers Care Inside Polisher Name Role Phone Cathleen Hebert MD Primary Care Provider + Allergies No known active allergies Medications Medication Sig Dispensed Refills Start Date End Date Status metFORMIN (GLUCOPHAGE) 1,000 mg tablet Take 1 tablet by mouth 2 times daily with meals. Patient does not know the dose 0 12/13/2016 Active aspirin (ECOTRIN) 81 mg enteric coated tablet Take 1 tablet by mouth once daily with a meal. 0 12/13/2016 Active fenofibrate nanocrystallized (TRICOR) 145 mg tablet Take 1 tablet by mouth once daily with a meal. 0 12/13/2016 Active lisinopril (PRINIVIL; ZESTRIL) 20 mg tablet Take 1 tablet by mouth. 0 12/13/2016 Active carvedilol (COREG) 3.125 mg tablet Take 1 tablet by mouth 2 times daily with meals. 0 12/13/2016 Active pravastatin (PRAVACHOL) 40 mg tablet Take 1 tablet by mouth at bedtime. 0 12/13/2016 Active opiry-2g-nop-epa-fish oil (OMEGA-3 FISH OIL) 300-1,000 mg cap Take by mouth. 0 12/13/2016 Active HYDROcodone-acetamino phen, 5-325 mg, (NORCO) per tabletIndications:Fal l, initial encounter,Hip injury, left, initial encounter,Elbow injury, left, initial encounter Take 1 tablet by mouth every 4 hours if needed for Pain Max acetaminophen dose: 4000mg in 24 hrs. 30 tablet 12/13/2016 Active cyclobenzaprine (FLEXERIL) 10 mg tabletIndications:Fal l, initial encounter,Hip injury, left, initial encounter,Elbow injury, left, initial encounter Take 1 tablet by mouth every 8 hours if needed for Muscle Spasm. 30 tablet 12/13/2016 Active Active Problems No known active problems Family History Medical History Relation Name Comments Cancer-breast Sister Cancer-ovarian No Family History Relation Name Status Comments Sister Social History Tobacco Use Types Packs/Day Years Used Date Smoking Tobacco: Never Smokeless Tobacco: Never Sex and Gender Information Value Date Recorded Sex Assigned at Not on file Gender Identity Not on file Sexual Orientation Not on file Obstetrics History Last Filed Vital Signs Vital Sign Reading Time Taken Comments Blood Pressure 134/70 12/13/2016 3:02 PM CDT Pulse 104 12/13/2016 3:02 PM CDT Temperature 36.9 ??C (98.4 ??F) 12/13/2016 3:02 PM CD T Respiratory Rate 12 12/13/2016 3:02 PM CDT Oxygen Saturation 97% 12/13/2016 3:02 PM CDT Inhaled Oxygen Concentration - - Weight 83.8 kg (184 lb 12.8 oz) 12/13/2016 3:02 PM CDT Height 165.1 cm (5' 5) 12/13/2016 3:02 PM CDT Body Mass Index 30.75 12/13/2016 3:02 PM CDT Plan of Treatment Health Maintenance Due Date Last Done Comments Tdap 1977 Depression screening for age 12+ 1978 HIV for age 15-65 1981 Hepatitis C screening for age 18-79 1984 Tetanus booster 1986 Pap test for age 21-65 04/22/2007 04/22/2004 Colonoscopy through age 75 11/07/2011 Lipids for age 45-75 11/07/2011 02/23/2005 Zoster (shingles) series for age 50+ (1 of 2) 2016 BMI (ht and wt on same day) for age 18+ 12/13/2017 12/13/2016 COVID-19 vaccine series (2022- season) 2023 07/25/2021, 10/05/2020, 09/14/2020 Mammogram for age 45-75 05/13/2023 05/13/20 22, 02/13/2021, 09/05/2018, Additional history exists Influenza for age 50-64 02/27/2024 Pneumococcal series for age 6-64 Aged Out No longer eligible based on patient's age to complete this topic Procedures Procedure Name Priority Date/Time Associated Diagnosis Comments XR MAMMO LORI BILAT SCREEN Routine 05/13/2022 4:01 PM WATERPROOFER HELPER Encounter for screening mammogram for malignant neoplasm of breast LIPID PANEL Timed 02/23/2005 10:49 AM CDT GYNECOLOGICAL PANEL Timed 04/22/2004 5 :45 PM CDT from Last 3 Months or Most Recently Relevant to Health Maintenance Results * XR MAMMO LORI BILAT SCREEN (05/13/2022 4:01 PM WATERPROOFER HELPER) Anatomical Region Laterality Modality BREASTS, Breast Left, Breast Right Bilateral Mammography Impressions 05/13/2022 4:23 PM WATERPROOFER HELPER ??There is no radiographic evidence for malignancy. ??Recommend annual mammograms. MAMMOGRAM ASSESSMENT: ??ACR 2 Benign PATIENTS: You will also receive a letter with your examination results in an easy to read format. ??If you have questions about your results, please contact your referring provider. Narrative 05/13/2022 4:23 PM WATERPROOFER HELPER For Patients: As a result of the Century Cures Act, medical imaging exams and procedure reports are released immediately into your electronic medical record. You may view this report before your referring provider. If you have questions, please contact your health care provider. XR MAMMO LORI BILAT SCREEN [[id number]] CLINICAL HISTORY: ??This is an asymptomatic 56 y.o. patient. INDICATION FOR EXAM: Mammogram Screening. TECHNIQUE: CC & MLO views were obtained. ??This study was evaluated with the assistance of Computer-Aided Detection. Breast Tomosynthesis was used in interpretation. COMPARISON FILMS: Yes 02/13/21 [facility] 09/05/18 [facility] FINDINGS: ??The breasts have scattered areas of fibroglandular density. ??No suspicious masses or microcalcifications. ??Post treatment changes within left breast. Cathleen Hebert MD MAMMO * (ABNORMAL) LIPID PANEL (02/23/2005 10:49 AM CDT) CHOLESTEROL,TOTAL 137 110 - 199 mg/dL [facility] TRIGLYCERIDES 556(H) 40 - 149 mg/dL [facility] HDL CHOLESTEROL 25(L) >40 mg/dL [facility] CHOL/HDL RATIO 5.48(H) <4.51 [facility] LDL CHOLESTEROL ?? Invalid LDL when Trig >400. [facility] PATIENT STATUS Fasting [facility] 02/23/2005 10:4 9 AM CDT 02/23/2005 5:21 PM CDT Dion Rand NP CHEMISTRY [facility] INTERNAL ZIP [address] [address] * GYNECOLOGICAL PANEL (04/22/2004 5:45 PM CDT) CYTOLOGY ??CYTOPATHOLOGY REPORT ??[facility] [address] [address] ? Status: Final Report ?[id number] ?? CLINICAL INFORMATION ?Reason for Visit ?: Routine ?LMP ? : 03-25-04 ?Previous PAP Test ? : Yes ?Previous PAP Date ? : 2001 ?Previous PAP Dx ? : NEGATIVE ?Previous Colposcopy/Bx: Not specified ?Hormone Usage ? : Not given ?Additional Data ? : Not given ?HPV Request ? : Reflex HPV test if PAP Dx ASCUS ?? SPECIMEN SOURCE ?: Cervical/vaginal thin, screening ?? SPECIMEN ADEQUACY ?: Satisfactory for evaluation Endocervical ?component present. ?? * ?? INTERPRETATION/RES ULT: ?Negative for intraepithelial lesion or malignancy. ?? * ?? Cytology 1st Screener : ??kmk ?? Signed by: ? kmk ?? Interinstitutiona l comparison of correlations between cervicovaginal ?? smears and biopsies demonstrate an overall false-negative rate of 8% for ?? Pap smears. ??Consideration should be given to performing a biopsy on any ?? suspicious lesion regardless of the Pap test result. ?? COLLECTED: 04/22/04 ?? ACCESSIONED: 04/23/04 ?? SIGNED: 04/24/04 [facility] 04/22/2004 5:45 PM CDT 04/23/2004 11:51 AM CDT Dion Rand NP PATHOLOGY/CYTOLOGY [facility] INTERNAL ZIP [address] [address] from Last 3 Months or Most Recently Relevant to Health Maintenance Care Teams Inside Polisher Relationship Specialty Start Date End Date Cathleen Hebert MD [address] [place] [address] PCP - General Family Practice 02/12/21
--- OUTSIDE RECORDS SUMMARY | 2023-10-12 07:46 | XMS_ITS | Clinical Summary ---
Author Name Unknown Organization [facility] Address [address] [place] [address] Phone [email or web address] Care Team Providers Care Cover Inspector Name Role Phone Unavailable Primary Care Provider Unavailabl e Immunizations Name Administration Dates Next Due Influenza (Flucelvax) MDCK, PF, quad (CVX-171) 1 Influenza PF Tri (CVX - 140) 04/01/2016 Influenza Tri (CVX - 141) 04/17/2015 Influenza, (Afluria Fluarix Flulaval Fluzone) quad, PF (CVX-150) 03/24/2019 Influenza, (Afluria Fluzone) quad, PF, 6-35 mo (CVX-161) 04/13/2017 Social History Tobacco Use Types Packs/Day Years Used Date Smoking Tobacco: Never Assessed Intimate Partner Violence Answer Date R ecorded Insults You Not on file 10/08/2020 Threatens You Not on file 10/08/2020 Screams at You Not on file 10/08/2020 Physically Hurt Not on file 10/08/2020 Intimate Partner Violence Score Not on file 10/08/2020 Stress Answer Date Recorded Stress in your Life 0 08/08/2020 Dealing with Stress Not on file 08/08/2020 Sex and Gender Information Value Date Recorded Sex Assigned at Not on file Gender Identity Not on file Sexual Orientation Not on file Plan of Treatment Health Maintenance Due Date Last Done Comments Cervical Cancer Screening 1982 Hepatitis B Immunization (1 of 3 - 19+ 3-dose series) 1985 Colorectal Cancer Screening 1996 Zoster Immunization (1 of 2) 2016 Tetanus (Tdap or Td) Immunization 07/19/2017 07/19/2007 Breast Cancer Screening 09/05/2020 09/05/2018 Covid-19 Immunization (2022- season) 2023 Influenza Immunization (Season Ended) 2024 03/24/2019, 03/29/2018, 04/13/2017 Pneumococcal: Ped (0 to 5 Yrs) and At-Risk Member (6 to 64 Yrs) Aged Out 05/07/2015 No longer eligible b ased on patient's age to complete this topic HIB Immunization Aged Out No longer e ligible based on patient's age to complete this topic HPV Immunization Aged Out No longer e ligible based on patient's age to complete this topic Hepatitis A Immunization Aged Out No longer eligible based on patient's age to complete this topic Polio Immunization Aged Out No longer eligible based on patient's age to complete this topic
--- OUTSIDE RECORDS SUMMARY | 2023-10-12 07:48 | XMS_ITS | Encounter Summary ---
Author Name Unknown Organization [facility] Address [address] [place] [address] Care Team Providers Care Slat Grader Name Role Phone Daisy Radford PA-C Primary Care Pr ovider Sherry Gutierrez RN Unavailable Daisy Radford PA-C Unavailable Daisy Radford PA-C Unavailable Encounter Details Date Type Department Care Team (Late st Contact Info) Description 12/09/2015 [facility] Medical Advice [address] [address] Praveena Juares, HAND CANDY DIPPER [facility] [address] [place] [address] [address] [place] [address] Social History Tobacco Use Types Packs/Day Years Used Date Smoking Tobacco: Never Smokeless Tobacco: Never Comments:NA Alcohol Use Standard Drinks/Week Comments No 0 (1 standard drink = 0.6 oz pur e alcohol) occasionally Sex and Gender Information Value Date Recorded Sex Assigned at Female 07/06/2018 4:08 PM COMPLIANCE ATTORNEY Gender Identity Female 07/06/2018 4:08 PM COMPLIANCE ATTORNEY Sexual Orientation Straight 07/06/2018 4: 08 PM COMPLIANCE ATTORNEY documented as of this encounter Plan of Treatment Not on file documented as of this encounter Visit Diagnoses Not on filedocumented in this encounter Care Teams Slat Grader Relationship Specialty Start Date End Date Daisy Radford PA-C [address] [place] [address] PCP - General Physician Desktop Support Specialist 12/19/13 Daisy Radford PA-C [address] [place] [address] PCP - Assigned PCP 12/24/13 08/30/18 Sherry Gutierrez RN [facility]sembler Primary Care - CC 10/11/1709/26 Daisy Radford PA-C [address] [place] [address] Assigned PCP 12/24/13 05/15/22 documented as of this encounter
--- OUTSIDE RECORDS SUMMARY | 2023-10-12 07:48 | XMS_ITS | Clinical Summary ---
Author Name Unknown Organization [facility] Address [address] [place] [address] Care Team Providers Care Disk And Tape Machine Tender Name Role Phone Daisy Radford PA-C Primary Care Pr ovider Allergies No known active allergies Medications Medication Sig Dispensed Refills Start Date End Date Status ASPIRIN 81 MG OR TABSIndications:Type II or unspecified type diabetes mellitus without mention of complication, not stated as uncontrolled ONE DAILY 100 3 07/02/2006 Active Multiple Vitamin (MULTIVITAMINS PO) Take 1 tablet by mouth daily Active blood glucose monitoring (ONE TOUCH ULTRA) test stripIndications:Type 2 diabetes mellitus without complication, without long-term current use of insulin (H) 1 strip by In Vitro route 4 times daily 100 strip 11 02/23/2017 Active hydrochlorothiazide (HYDRODIURIL) 12.5 MG tabletIndications:Ess ential hypertension with goal blood pressure less than 140/90 TAKE 1 TABLET BY MOUTH EVERY DAY 15 tablet 04/27/2019 Active hydrochlorothiazide (HYDRODIURIL) 12.5 MG tabletIndications:Ess ential hypertension with goal blood pressure less than 140/90 TAKE 1 TABLET BY MOUTH DAILY 15 tablet 04/27/2019 Active glimepiride (AMARYL) 2 MG tabletIndications:Typ e 2 diabetes mellitus with other specified complication, with long-term current use of insulin (H) Take 1 tablet (2 mg) by mouth every morning (before breakfast) 90 tablet 1 05/15/2019 Active insulin pen needle (SURE COMFORT PEN NEEDLES) 30G X 8 MM miscellaneousIndicati ons:Type 2 diabetes mellitus with other specified complication, with long-term current use of insulin (H) USE ONCE DAILY 100 each 3 05/15/2019 Active fenofibrate (TRICOR) 145 MG tabletIndications:Hyp ertriglyceridemia,Hyp erlipidemia LDL goal <100 TAKE 1 TABLET BY MOUTH DAILY. 90 tablet 2 08/09/2019 Active insulin glargine (BASAGLAR KWIKPEN) 100 UNIT/ML penIndications:Type 2 diabetes mellitus without complication, with long-term current use of insulin (H) INJECT 10 UNITS UNDER THE SKIN DAILY 30 mL 3 2019 Active metFORMIN (GLUCOPHAGE) 1000 MG tabletIndications:Typ e 2 diabetes mellitus without complication, with long-term current use of insulin (H) TAKE 1 TABLET BY MOUTH TWICE DAILY BREAKFAST AND DINNER WITH MEALS 30 tablet 04/02/2020 Active carvedilol (COREG) 3.125 MG tabletIndications:Ess ential hypertension with goal blood pressure less than 140/90 TAKE 1 TABLET(3.125 MG) BY MOUTH TWICE DAILY 30 tablet 04/02/2020 Active rosuvastatin (CRESTOR) 40 MG tabletIndications:Hig h blood triglycerides TAKE 1 TABLET(40 MG) BY MOUTH DAILY 90 tablet 05/01/2020 Active lisinopril (ZESTRIL) 40 MG tabletIndications:Ess ential hypertension with goal blood pressure less than 140/90,Type 2 diabetes mellitus with other specified complication, with long-term current use of insulin (H) Take 1 tablet (40 mg) by mouth daily 30 tablet 07/31/2020 Active omega-3 acid ethyl esters (LOVAZA) 1 g capsuleIndications:Hy pertriglyceridemia,Hy perlipidemia LDL goal <100 TAKE 4 CAPSULES BY MOUTH EVERY DAY WITH FOOD 60 capsule 08/29/2020 Active Active Problems Problem Noted Date Diagnosed Date Obese 04/15/2015 Acute pancreatitis 06/28/2014 Overview: secondary to triglycerides- June 2014 Vitamin D deficiency 05/06/2014 Overview: Problem list name updated by automated process. Provider to review Hypertension goal BP (blood pressure) < 140/90 0 10/19/2010 Hyperlipidemia LDL goal <100 10/19/2010 Pseudocyst of pancreas 10/19/2010 Type 2 diabetes mellitus without complication Personal history of breast cancer 07/23/2009 Overview: 2003 Pure hyperglyceridemia 05/12/2006 Overview: T 05/03 Resolved Problems Problem Noted Date Diagnosed Date Resolved Date Diabetes mellitus, type 2 07/23/2009 Overview: Problem list name updated by automated process. Provider to review Diabetes mellitus, type 2 05/12/2006 Overview: Problem list name updated by automated process. Provider to review Immunizations Name Administration Dates Next Due Influenza (IIV3) PF 03/28/2015 Pneumococcal 23 valent 05/07/2015 TDAP Vaccine (Adacel) 07/19/2007 Family History Medical History Relation Comments Diabetes Brother Hypertension Brother Family History Negative Father Alzheimer Disease Mother Diabetes Mother Hypertension Mother Prostate Cancer Paternal Grandfather Breast Cancer Sister Cancer - colorectal No family hx of Relation Status Comments Brother Father Maternal Grandfather Maternal Grandmother Mother Alive Paternal Grandfather Alive Paternal Grandmother Sister Social History Tobacco Use Types Packs/Day Years Used Date Smoking Tobacco: Never Smokeless Tobacco: Never Comments:NA Alcohol Use Standard Drinks/Week Comments No 0 (1 standard drink = 0.6 oz pur e alcohol) occasionally PHQ-2 Answer Date Recorded PHQ-2 Score 0 10/24/2018 Adolescent Education Answer Date Record ed Getting School Help Needed Not on file 04/13 Sex and Gender Information Value Date Recorded Sex Assigned at Female 07/06/2018 4:08 PM FIELD FOREMAN Gender Identity Female 07/06/2018 4:08 PM FIELD FOREMAN Sexual Orientation Straight 07/06/2018 4: 08 PM FIELD FOREMAN Last Filed Vital Signs Vital Sign Reading Time Taken Comments Blood Pressure 139/82 05/15/2019 8:37 AM FIELD FOREMAN Pulse 86 05/15/2019 8:37 AM FIELD FOREMAN Temperature 36.7 ??C (98 ??F) 05/15/2019 8:37 AM FIELD FOREMAN Respiratory Rate 17 05/15/2019 8:37 AM FIELD FOREMAN Oxygen Saturation 98% 05/15/2019 8:37 AM FIELD FOREMAN Inhaled Oxygen Concentration - - Weight 88.7 kg (195 lb 9.6 oz) 05/15/2019 8:37 A M FIELD FOREMAN Height 163.8 cm (5' 4.5) 05/15/2019 8:37 AM FIELD FOREMAN Body Mass Index 33.06 05/15/2019 8:37 AM FIELD FOREMAN Plan of Treatment Not on file Advance Directives For more information, please contact: [phone] * Full Code (Latest Code Status on File) Date Activated Date Inactivated Comments 10/08/2017 7:25 AM * Full Code Date Activated Date Inactivated Comments 10/04/2017 11:55 PM 10/08/2017 7:25 AM Care Teams Disk And Tape Machine Tender Relationship Specialty Start Date End Date Daisy Radford PA-C [address] [place] [address] PCP - General Physician Conference Planner 12/19/13
--- OUTSIDE RECORDS SUMMARY | 2023-10-12 07:48 | XMS_ITS | Encounter Summary ---
Author Name Unknown Organization [place] Address [address] [place] [address] Care Team Providers Care Field Coil Winder Name Role Phone Daisy Radford PA-C Primary Care Pr ovider Sherry Gutierrez RN Unavailable Daisy Radford PA-C Unavailable Daisy Radford PA-C Unavailable Reason for Visit * Reason Onset Date Comments Refill Request 02/10/2017 Encounter Details Date Type Department Care Team (Late st Contact Info) Description 02/10/2017 MyC Refill [facility] [id number] [place] [address] Daisy Radford PA-C [address] [place], [place] [id number] Refill Request Social History Tobacco Use Types Packs/Day Years Used Date Smoking Tobacco: Never Smokeless Tobacco: Never Comments:NA Alcohol Use Standard Drinks/Week Comments No 0 (1 standard drink = 0.6 oz pur e alcohol) occasionally Sex and Gender Information Value Date Recorded Sex Assigned at Female 07/06/2018 4:08 PM BRAND EXECUTIVE Gender Identity Female 07/06/2018 4:08 PM BRAND EXECUTIVE Sexual Orientation Straight 07/06/2018 4: 08 PM BRAND EXECUTIVE documented as of this encounter Miscellaneous Notes * Telephone Encounter - Maddie Lange RN - 02/10/2017 12:04 PM CDT Routing refill request to provider for review/approval because: Patient needs to be seen because it has been more than 1 year since last office visit. Pt was to f/u on labs back in Feb 10 and never did so, has appt 02/23. Ok for 1 X fill? Maddie Lange RN Metformin, carvedilol, lisinopril, fenofibrate, pravastatin, omega 3 Last Written Prescription Date: 01/30/16 Last Fill Quantity:90 # refills: [address] [facility] or [facility] prescribing provider: 02/01/16 Next 5 appointments (look out 90 days) Feb 23, 2017 8:30 AM CDT Anson Thomason with Daisy Radford PA-[facility] [address] [place] [id number] BP Readings from Last 3 Encounters: 01/30/16 133/83 05/07/15 138/83 01/22/15 140/90 Lab Results Component Value Date MICROL 27 01/30/2016 Lab Results Component Value Date UMALCR 24.77 01/30/2016 Creatinine Date Value Ref Range Status 01/30/2016 0.61 0.52 - 1.04 mg/dL Final ] GFR Estimate Date Value Ref Range Status 01/30/2016 >90 Non GFR Calc >60 mL/min/1.7m2 Final 01/22/2015 75 >60 mL/min/1.7m2 Final Comment: Non GFR Calc 07/25/2014 79 >60 mL/min/1.7m2 Final Comment: Non GFR Calc GFR Estimate If Black Date Value Ref Range Status 01/30/2016 >90 GFR Calc >60 mL/min/1.7m2 Final 01/22/2015 >90 GFR Calc >60 mL/min/1.7m2 Final 07/25/2014 >90 GFR Calc >60 mL/min/1.7m2 Final Lab Results Component Value Date CHOL 213 01/30/2016 Lab Results Component Value Date HDL 22 01/30/2016 Lab Results Component Value Date LDL 01/30/2016 Cannot estimate LDL when triglyceride exceeds 400 mg/dL Desirable: <100 mg/dl LDL 48 01/30/2016 Lab Results Component Value Date TRIG 3211 01/30/2016 Lab Results Component Value Date CHOLHDLRATIO 9.1 01/22/2015 Lab Results Component Value Date AST 24 01/30/2016 Lab Results Component Value Date ALT 30 01/30/2016 Lab Results Component Value Date A1C 10.5 01/30/2016 A1C 6.5 01/22/2015 A1C 8.5 04/13/2014 A1C 8.9 04/05/2014 A1C 9.7 12/19/2013 Potassium Date Value Ref Range Status 01/30/2016 3.9 3.4 - 5.3 mmol/L Final * Telephone Encounter - Maddie Lange RN - 02/10/2017 12:03 PM CDTMessage from [facility]: Original authorizing provider: STEFFEN Rodriguez would like a refill of the following medications: omega-3 acid ethyl esters (LOVAZA) 1 G capsule [Daisy Radford PA-C] carvedilol (COREG) 3.125 MG tablet [Daisy Radford PA-C] metFORMIN (GLUCOPHAGE) 1000 MG tablet [Daisy Radford PA-C] lisinopril (PRINIVIL,ZESTRIL) 20 MG tablet [Daisy Radford PA-C] fenofibrate (TRICOR) 145 MG tablet [Daisy Radford PA-C] pravastatin (PRAVACHOL) 40 MG tablet [Daisy Radford PA-C] Preferred pharmacy: [id number] - [place], [place] - [address] [facility] Comment: I've scheduled an appointment with Daisy Russell for February 23 at 8:30, but I'm going to be on vacation 02/13-02/21 and will need refills on all of the above before I leave on Wednesday. Can I have you approve one month's worth, so I won't run out before my appointment? Thanks. Medication renewals requested in this message routed to other providers: glucose blood test strips (ONE TOUCH ULTRA TEST) strip [Jaden Barrett MD] documented in this encounter Plan of Treatment Not on file documented as of this encounter Visit Diagnoses Diagnosis Type 2 diabetes mellitus without complication, without long-term current use of insulin (H)- Primary Hypertriglyceridemia Pure hyperglyceridemia Hyperlipidemia LDL goal <100 Other and unspecified hyperlipidemia Essential hypertension with goal blood pressure less than 140/90 documented in this encounter Care Teams Field Coil Winder Relationship Specialty Start Date End Date Daisy Radford PA-C [address] [place] [address] PCP - General Physician Ditch Digger 12/19/13 Daisy Radford PA-C [address] [place] [address] PCP - Assigned PCP 12/24/13 08/30/18 Sherry Gutierrez RN Clinic Furnace Setter Primary Care - CC 10/11/1709/26 Daisy Radford PA-C [address] [place] [address] Assigned PCP 12/24/13 05/15/22 documented as of this encounter
--- OUTSIDE RECORDS SUMMARY | 2023-10-12 07:48 | XMS_ITS | Encounter Summary ---
Author Name Unknown Organization [place] Address [address] [place] [address] Care Team Providers Care Hoisting Machine Operator Name Role Phone Jaden Barrett MD Primary Care Provider Daisy Radford PA-C Primary Care Pr ovider Sherry Gutierrez RN Unavailable [phone] Daisy Radford PA-C Unavailable Daisy Radford PA-C Unavailable Encounter Details Date Type Department Care Team (Late st Contact Info) Description 08/12/2010 [facility] [address] [phone] [facility] Social History Tobacco Use Types Packs/Day Years Used Date Smoking Tobacco: Never Alcohol Use Standard Drinks/Week Comments Yes 0 (1 standard drink = 0.6 oz pur e alcohol) occasional Sex and Gender Information Value Date Recorded Sex Assigned at Female 07/06/2018 4:08 PM SASH FINISHER Gender Identity Female 07/06/2018 4:08 PM SASH FINISHER Sexual Orientation Straight 07/06/2018 4: 08 PM SASH FINISHER documented as of this encounter Plan of Treatment Not on file documented as of this encounter Visit Diagnoses Not on filedocumented in this encounter Care Teams Hoisting Machine Operator Relationship Specialty Start Date End Date Jaden Barrett MD PCP - General 07/02/06 12/18/13 Daisy Radford PA-C [address] [place] [address] PCP - General Physician Manager Of Case 12/19/13 Daisy Radford PA-C [address] [place] [address] PCP - Assigned PCP 12/24/13 08/30/18 Sherry Gutierrez RN Clinic Exterminator Termite Primary Care - CC 10/11/1709/26 Daisy Radford PA-C [address] [place] [address] Assigned PCP 12/24/13 05/15/22 documented as of this encounter
--- OUTSIDE RECORDS SUMMARY | 2023-10-12 07:48 | XMS_ITS | Encounter Summary ---
Author Name Unknown Organization [place] Address [address] [place] [address] Care Team Providers Care Customer Relations Consultant Name Role Phone Daisy Radford PA-C Primary Care Pr ovider Sherry Gutierrez RN Unavailable Daisy Radford PA-C Unavailable Daisy Radford PA-C Unavailable Encounter Details Date Type Department Care Team (Late st Contact Info) Description 04/02/2017 MyC Medical Advice [address] [phone] Daisy Radford PA-C [address] [place] [address] Hypertriglyceridemia ; Hyperlipidemia LDL goal <100 Social History Tobacco Use Types Packs/Day Years Used Date Smoking Tobacco: Never Smokeless Tobacco: Never Comments:NA Alcohol Use Standard Drinks/Week Comments No 0 (1 standard drink = 0.6 oz pur e alcohol) occasionally Sex and Gender Information Value Date Recorded Sex Assigned at Female 07/06/2018 4:08 PM SOLID SURFACE FABRICATOR Gender Identity Female 07/06/2018 4:08 PM SOLID SURFACE FABRICATOR Sexual Orientation Straight 07/06/2018 4: 08 PM SOLID SURFACE FABRICATOR documented as of this encounter Plan of Treatment Not on file documented as of this encounter Visit Diagnoses Diagnosis Hypertriglyceridemia Pure hyperglyceridemia Hyperlipidemia LDL goal <100 Other and unspecified hyperlipidemia documented in this encounter Care Teams Customer Relations Consultant Relationship Specialty Start Date End Date Daisy Radford PA-C [address] [place] [address] PCP - General Physician Carburetor Mechanic 12/19/13 Daisy Radford PA-C [address] [place] [address] PCP - Assigned PCP 12/24/13 08/30/18 Sherry Gutierrez RN Clinic Elementary Ell Teacher Primary Care - CC 10/11/1709/26 Daisy Radford PA-C [address] [place] [address] Assigned PCP 12/24/13 05/15/22 documented as of this encounter
--- OUTSIDE RECORDS SUMMARY | 2023-10-12 07:48 | XMS_ITS | Encounter Summary ---
Author Name Unknown Organization [place] Address [address] [place] [address] Care Team Providers Care Tank Builder And Erector Name Role Phone Jaden Barrett MD Primary Care Provider Daisy Radford PA-C Primary Care Pr ovider Sherry Guteirrez RN Unavailable Daisy Radford PA-C Unavailable Daisy Radford PA-C Unavailable Encounter Details Date Type Department Care Team (Late st Contact Info) Description 05/20/[address] [phone] [facility] Social History Tobacco Use Types Packs/Day Years Used Date Smoking Tobacco: Never Smokeless Tobacco: Never Alcohol Use Standard Drinks/Week Comments Yes 0 (1 standard drink = 0.6 oz pur e alcohol) occasionally Sex and Gender Information Value Date Recorded Sex Assigned at Female 07/06/2018 4:08 PM INFORMATION SECURITY DIRECTOR Gender Identity Female 07/06/2018 4:08 PM INFORMATION SECURITY DIRECTOR Sexual Orientation Straight 07/06/2018 4: 08 PM INFORMATION SECURITY DIRECTOR documented as of this encounter Plan of Treatment Not on file documented as of this encounter Visit Diagnoses Not on filedocumented in this encounter Care Teams Tank Builder And Erector Relationship Specialty Start Date End Date Nena Jaden Palafox MD PCP - General 07/02/06 12/18/13 Daisy Radford PA-C [address] [place] [address] PCP - General Physician Bill Adjuster 12/19/13 Daisy Radford PA-C [address] [place] [address] PCP - Assigned PCP 12/24/13 08/30/18 Sherry Gutierrez RN Clinic Vehicle Modification Technician Primary Care - CC 10/11/1709/26 Daisy Radford PA-C [address] [place] [address] Assigned PCP 12/24/13 05/15/22 documented as of this encounter
--- OUTSIDE RECORDS SUMMARY | 2023-10-12 07:48 | XMS_ITS | Encounter Summary ---
Author Name Unknown Organization [place] Address [address] [place] [address] Care Team Providers Care Cardiograph Operator Name Role Phone Daisy Radford PA-C Primary Care Pr ovider Daisy Radford PA-C Unavailable Encounter Details Date Type Department Care Team (Late st Contact Info) Description 04/26/2019 MyC Medical Advice [address] [address] Praveena Juares APRN [facility] [address] [place] [address] [address] [place] [address] Social History Tobacco Use Types Packs/Day Years Used Date Smoking Tobacco: Never Smokeless Tobacco: Never Comments:NA Alcohol Use Standard Drinks/Week Comments No 0 (1 standard drink = 0.6 oz pur e alcohol) occasionally PHQ-2 Answer Date Recorded PHQ-2 Score 0 10/24/2018 Sex and Gender Information Value Date Recorded Sex Assigned at Female 07/06/2018 4:08 PM BRICK BAKER Gender Identity Female 07/06/2018 4:08 PM BRICK BAKER Sexual Orientation Straight 07/06/2018 4: 08 PM BRICK BAKER documented as of this encounter Plan of Treatment Not on file documented as of this encounter Visit Diagnoses Not on filedocumented in this encounter Care Teams Cardiograph Operator Relationship Specialty Start Date End Date Daisy Radford PA-C [address] [place] [address] PCP - General Physician Ware Carrier 12/19/13 Daisy Radford PA-C [address] [place] [address] Assigned PCP 12/24/13 05/15/22 documented as of this encounter
--- OUTSIDE RECORDS SUMMARY | 2023-10-12 07:48 | XMS_ITS | Encounter Summary ---
Author Name Unknown Organization [place] Address [address] [place] [address] Care Team Providers Care Calculus Tutor Name Role Phone Daisy Radford PA-C Primary Care Pr ovider Daisy Radford PA-C Unavailable Reason for Referral * Consultation (Routine) - Closed Specialty Diagnoses / Procedures Referred By Monik gilbert Referred To Contact Diagnoses Hypertriglyceridemia Type 2 diabetes mellitus with other specified complication, with long-term current use of insulin (H) Daisy Radford PA-C [address] [place] [address] MULTIPLE LOCATIONS Referral ID Status Reason Start Date Expiration Date Visits Re quested Visits Authorized [id number] Closed 05/22/2019 05/21/2020 1 1 Comments Your provider has referred you to: [facility]: [facility] [email or web address] [facility]: [facility] [email or web address] [facility]: [email or web address] [facility]: Endocrinology Clinic [facility] [email or web address] [facility] [phone] Please be aware that coverage of these services is subject to the terms and limitations of your health insurance plan. Call member services at your health plan with any benefit or coverage questions. Please bring the following to your appointment: >> Any x-rays, CTs or MRIs which have been performed. Contact the facility where they were done to arrange for picking machine operator prior to your scheduled appointment. >> List of current medications >> This referral request >> Any documents/labs given to you for this referral BLASTER PAINT SPRAYER Reason for Visit * Reason Onset Date Comments MyChart Communication 05/22/2019 Encounter Details Date Type Department Care Team (Latest Contact Info) Description 05/22/2019 [facility] [address] [address] Daisy Radford PA-C [id number] [place] [address] MyChart Communication Social History Tobacco Use Types Packs/Day Years Used Date Smoking Tobacco: Never Smokeless Tobacco: Never Comments:NA Alcohol Use Standard Drinks/Week Comments No 0 (1 standard drink = 0.6 oz pur e alcohol) occasionally PHQ-2 Answer Date Recorded PHQ-2 Score 0 10/24/2018 Sex and Gender Information Value Date Recorded Sex Assigned at Female 07/06/2018 4:08 PM SANDBLASTER PAINT SPRAYER Gender Identity Female 07/06/2018 4:08 PM SANDBLASTER PAINT SPRAYER Sexual Orientation Straight 07/06/2018 4: 08 PM SANDBLASTER PAINT SPRAYER documented as of this encounter Plan of Treatment Scheduled Referrals Name Type Priority Associated Diagnoses Orde r Schedule ENDOCRINOLOGY ADULT REFERRAL Referral Routine Hypertriglyceridemia Type 2 diabetes mellitus with other specified complication, with long-term current use of insulin (H) Ordered: 05/22/2019 documented as of this encounter Visit Diagnoses Diagnosis Hypertriglyceridemia- Primary Pure hyperglyceridemia Type 2 diabetes mellitus with other specified complication, with long-term current use of insulin (H) documented in this encounter Care Teams Calculus Tutor Relationship Specialty Start Date End Date Daisy Radford PA-C [address] [place] [address] PCP - General Physician Steward/Stewardess Wine 12/19/13 Daisy Radford PA-C [address] [place] [address] Assigned PCP 12/24/13 05/15/22 documented as of this encounter
--- OUTSIDE RECORDS SUMMARY | 2023-10-12 07:48 | XMS_ITS | Encounter Summary ---
Author Name Unknown Organization [place] Address [address] [place] [address] Care Team Providers Care Tin Container Straightener Name Role Phone Daisy Radford PA-C Primary Care Pr ovider Daisy Radford PA-C Unavailable Daisy Radford PA-C Unavailable Encounter Details Date Type Department Care Team (Late st Contact Info) Description 01/03/2018 MyC Medical Advice [address] [address] Praveena Juares, LEEANNA DOPER OPERATOR [address] [place] [address] [address] [place], [place] [id number] Social History Tobacco Use Types Packs/Day Years Used Date Smoking Tobacco: Never Smokeless Tobacco: Never Comments:NA Alcohol Use Standard Drinks/Week Comments No 0 (1 standard drink = 0.6 oz pur e alcohol) occasionally Sex and Gender Information Value Date Recorded Sex Assigned at Female 07/06/2018 4:08 PM HOT DOG VENDER Gender Identity Female 07/06/2018 4:08 PM HOT DOG VENDER Sexual Orientation Straight 07/06/2018 4: 08 PM HOT DOG VENDER documented as of this encounter Plan of Treatment Not on file documented as of this encounter Visit Diagnoses Not on filedocumented in this encounter Care Teams Tin Container Straightener Relationship Specialty Start Date End Date Daisy Radford PA-C [address] [place] [address] PCP - General Physician Ordnance Mechanic 12/19/13 Daisy Radford PA-C [address] [place] [address] PCP - Assigned PCP 12/24/13 08/30/18 Daisy Radford PA-C [address] [place] [address] Assigned PCP 12/24/13 05/15/22 documented as of this encounter
--- OUTSIDE RECORDS SUMMARY | 2023-10-12 07:48 | XMS_ITS | Encounter Summary ---
Author Name Unknown Organization [place] Address [address] [place] [address] Care Team Providers Care Technical Laboratory Asst Name Role Phone Daisy Radford PA-C Primary Care Pr ovider Daisy Radford PA-C Unavailable Encounter Details Date Type Department Care Team (Late st Contact Info) Description 05/01/2020 MyC Medical Advice [address] [address] Praveena Juares APRN PC TECHNICIAN [address] [place] [address] [address] [place] [address] Social History Tobacco Use Types Packs/Day Years Used Date Smoking Tobacco: Never Smokeless Tobacco: Never Comments:NA Alcohol Use Standard Drinks/Week Comments No 0 (1 standard drink = 0.6 oz pur e alcohol) occasionally PHQ-2 Answer Date Recorded PHQ-2 Score 0 10/24/2018 Sex and Gender Information Value Date Recorded Sex Assigned at Female 07/06/2018 4:08 PM RAG BOILER Gender Identity Female 07/06/2018 4:08 PM RAG BOILER Sexual Orientation Straight 07/06/2018 4: 08 PM RAG BOILER documented as of this encounter Plan of Treatment Not on file documented as of this encounter Visit Diagnoses Not on filedocumented in this encounter Care Teams Technical Laboratory Asst Relationship Specialty Start Date End Date Daisy Radford PA-C [address] [place] [address] PCP - General Physician Entry Level Account Manager 12/19/13 Daisy Radford PA-C [address] [place] [address] Assigned PCP 12/24/13 05/15/22 documented as of this encounter
--- OUTSIDE RECORDS SUMMARY | 2023-10-12 07:48 | XMS_ITS | Encounter Summary ---
Author Name Unknown Organization [place] Address [address] [place] [address] Care Team Providers Care Cook Helper Preserves Name Role Phone Daisy Radford PA-C Primary Care Pr ovider Daisy Radford PA-C Unavailable Daisy Radford PA-C Unavailable Reason for Visit * Reason Comments Medication Refill Amaryl, Crestor Encounter Details Date Type Department Care Team (Late st Contact Info) Description 12/17/[address] [phone] Daisy Radford PA-C [address] [place] [id number] Medication Refill (Amaryl, Crestor) Social History Tobacco Use Types Packs/Day Years Used Date Smoking Tobacco: Never Smokeless Tobacco: Never Comments:NA Alcohol Use Standard Drinks/Week Comments No 0 (1 standard drink = 0.6 oz pur e alcohol) occasionally Sex and Gender Information Value Date Recorded Sex Assigned at Female 07/06/2018 4:08 PM HYPERION ADMINISTRATOR Gender Identity Female 07/06/2018 4:08 PM HYPERION ADMINISTRATOR Sexual Orientation Straight 07/06/2018 4: 08 PM HYPERION ADMINISTRATOR documented as of this encounter Miscellaneous Notes * Telephone Encounter - Teresa Lemos RN - 12/17/2017 3:14 PM CDT Routing refill request to provider for review/approval because: Basia given x1 and patient did not follow up, please advise Patient due for a diabetes follow up per 10/13/2017 NEGAR note. Upcoming OV scheduled. Ok for additional supply? Please sign if appropriate. Teresa Nova RN, BSN, PHN [facility] RN * Telephone Encounter - Teresa Lemos RN - 12/17/2017 3:12 PM CDT Requested Prescriptions Pending Prescriptions Disp Refills ??? glimepiride (AMARYL) 2 MG tablet [Pharmacy Med Name: GLIMEPIRIDE 2MG TABLETS] 30 tablet 0 Sig: TAKE 1 TABLET(2 MG) BY MOUTH EVERY MORNING BEFORE BREAKFAST Sulfonylurea Agents Failed 12/17/2017 3:11 PM Failed - Patient has had a Microalbumin in the past 12 mos. Recent Labs Lab Test 01/30/16 0726 MICROL 27 UMALCR 24.77 Passed - Blood pressure less than 140/90 in past 6 months BP Readings from Last 3 Encounters: 10/13/17 128/78 10/08/17 163/68 03/30/17 119/73 Last Written Prescription Date: 11/18/2017 Last Fill Quantity: 30, # refills: 0 Last office visit: 10/13/2017 with prescribing provider: Daisy Radford Future Office Visit: Next 5 appointments (look out 90 days) Dec 27, 2017 9:00 AM CDT [facility] with Daisy Radford PA-C [facility] [address] [facility] [phone] Passed - Patient has documented LDL within the past 12 mos. Recent Labs Lab Test 03/29/17 0856 LDL 30 Passed - Patient has documented A1c within the specified period of time. If HgbA1C is 8 or greater, it needs to be on file within the past 3 months. If less than 8, must beon file within the past 6 months. Recent Labs Lab Test 10/05/17 0626 A1C 10.6* Passed - Patient is age 18 or older Passed - No active on record Passed - Patient has a recent creatinine (normal) within the past 12 mos. Recent Labs Lab Test 10/06/17 0710 CR 0.52 Passed - Patient has not had a positive test within the past 12 mos. Passed - Recent (6 mo) or future (30 days) visit within the authorizing provider's specialty Patient had office visit in the last 6 months or has a visit in the next 30 days with authorizing provider or within the authorizing provider's specialty. See Patient Info tab in inbasket, or Choose Columns in Meds & Orders section of the refill encounter. ??? rosuvastatin (CRESTOR) 20 MG tablet [Pharmacy Med Name: ROSUVASTATIN 20MG TABLETS] 30 tablet 0 Sig: TAKE 1 TABLET BY MOUTH DAILY. Statins Protocol Passed 12/17/2017 3:11 PM Passed - LDL on file in past 12 months Recent Labs Lab Test 03/29/17 0856 LDL 30 Passed - No abnormal creatine kinase in past 12 months No lab results found. Passed - Recent (12 mo) or future (30 days) visit within the authorizing provider's specialty Patient had office visit in the last 12 months or has a visit in the next 30 days with authorizing provider or within the authorizing provider's specialty. See Patient Info tab in inbasket, or Choose Columns in Meds & Orders section of the refill encounter. Passed - Patient is age 18 or older Passed - No active on record Passed - No positive test in past 12 months Last Written Prescription Date: 11/19/2017 Last Fill Quantity: 30, # refills: 0 Last office visit: 10/13/2017 with prescribing provider: Daisy Radford Future Office Visit: Next 5 appointments (look out 90 days) Dec 27, 2017 9:00 AM CDT Anson Thomason with Daisy Radford PA-C [facility] [phone] [place] [phone] documented in this encounter Plan of Treatment Not on file documented as of this encounter Visit Diagnoses Diagnosis Type 2 diabetes mellitus without complication, without long-term current use of insulin (H) Pure hyperglyceridemia Type 2 diabetes mellitus without complication, with long-term current use of insulin (H) documented in this encounter Care Teams Cook Helper Preserves Relationship Specialty Start Date End Date Daisy Radford PA-C [address] [place] [address] PCP - General Physician Telephone Station Repairer 12/19/13 Daisy Radford PA-C [address] [place] [address] PCP - Assigned PCP 12/24/13 08/30/18 Daisy Radford PA-C [address] [place] [address] Assigned PCP 12/24/13 05/15/22 documented as of this encounter
--- OUTSIDE RECORDS SUMMARY | 2023-10-12 07:48 | XMS_ITS | Encounter Summary ---
Author Name Unknown Organization [place] Address [address] [place] [address] Care Team Providers Care Clerk Manager Name Role Phone Diogo Kirk MD Primary Care Provider Daisy Radford PA-C Primary Care Pr ovider Sherry Gutierrez RN Unavailable [phone] Daisy Radford PA-C Unavailable Daisy Radford PA-C Unavailable Encounter Details Date Type Department Care Team (Late st Contact Info) Description 02/28/2010 Office Visit-[facility] [address] [place] [phone] Antonio Caceres MD Social History Tobacco Use Types Packs/Day Years Used Date Smoking Tobacco: Never Alcohol Use Standard Drinks/Week Comments Yes 0 (1 standard drink = 0.6 oz pur e alcohol) occasional Sex and Gender Information Value Date Recorded Sex Assigned at Female 07/06/2018 4:08 PM CERTIFIED OPHTHALMIC ASSISTANT Gender Identity Female 07/06/2018 4:08 PM CERTIFIED OPHTHALMIC ASSISTANT Sexual Orientation Straight 07/06/2018 4: 08 PM CERTIFIED OPHTHALMIC ASSISTANT documented as of this encounter Progress Notes * Antonio Caceres MD - 03/04/2010 2:03 PM CDT Progress Note Created by: Antonio Caceres M.D. DATE: 02/28/2010 BEATRIZ CHAUHAN DATE OF : 1965 AGE: [age] years old Referring Physician: DIOGO KIRK Referring Clinic: [facility] CURRENT DIAGNOSES 1. - Hyperlipidemia mixed, 272.2 2. - Hypertension, 401.1 ALLERGIES NKDA MEDICATIONS (prior to changes made today) 1. Aspirin 81 mg Tablet, 1 p.o. daily 2. Tricor 145 mg Tablet, 1 p.o. daily 3. Lisinopril 10 mg Tablet, 1 p.o. daily 4. Metformin 1,000 mg Tablet, 1 p.o. twice daily 5. Lovaza 1 gram Capsule, 4 p.o. daily 6. Multiple Vitamin Tablet, 1 p.o. daily 7. Carvedilol 3.125 mg Tablet, 1 p.o. twice daily 8. Pravastatin 40 mg Tablet, one each evening 9. Niacin 50 mg Tablet, 3 daily with food CHIEF COMPLAINTS HISTORY OF PRESENT ILLNESS Thank you for sending Beatriz Chauhan to the office today. 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 Actually interestingly enough, she haslooked at the questions of whether or not triglycerides could be affected by medications. The storygoes that she has been diabetic for about eight years or so. I suspect that it must by Type 2. She has been hypertensive for close to 15 years. She does not have a history of heart disease in her family at early ages, although a brother younger than her who may have sleep apnea has been diagnosed with atrial fibrillation. She has never smoked cigarettes. Her lipids are not good with her primary problem being severe hypertriglyceridemia with pancreatitis having occurred in 2005. It ends up having occurred at a time when she was taking tamoxifen, which is a drug known to raise triglycerides. The connection between triglycerides and her pancreatitis is quite likely. She does not know whether any of her family members have elevated or unusually abnormal lipid levels, but she will do a little bit of research to check that out. She is obviously a survivor of breast cancer and wonderfully has been off of tamoxifen now for a couple of months. The affect of tamoxifen should slowly decline. Thelevels, however, on January 14 (which was about a month or so after tamoxifen was stopped) showed triglycerides of 1,074. Cholesterol was 208. HDL was 29. Ratio was 7.2 of cholesterol:HDL. A1c at thattime was 6.5. It makes one wonder whether stopping the tamoxifen might have a delayed benefit rather than an immediate benefit. On the other hand, I think that it is appropriate to do whatever we kya lower the triglycerides down into a reasonable range. They have been in a reasonable range at times. Along those lines instead of atenolol, it turns out that carvedilol is superior to metoprolol in terms of triglyceride lowering (although I think that it may simply have a neutral affect on triglycerides. I will give her carvedilol at 3.125 mg twice per day as her blood pressure is a tad high today at 146/80. Heart rate was 110. Maybe this is because she is seeing a strange physician. I am not quite sure. I have not checked the blood pressure again to see if I have dropped it. I suspect that with all of the information that I have given her it is probably still up a bit. It turns out thatLovaza, as you have given her, is absolutely a wonderful drug at 4 g per day. The TriCor that you have given her is an excellent drug. It turns out that the statins are also drugs that drop triglycerides. We should add a statin to the regimen in the form of Pravachol. It turns out that niacin is atleast a very reasonable drug that turns out to have an increased interest. It is an old drug that has been around forever, and there is a study called AIM-HIGH (which should be out in September or October 2010 that was run by the NIH) and it does two major things: First, it drops triglycerides by about 1/3. Second, it raises HDL by 20% with a slow continued increase of HDL over the next several years. Italso drops LDL cholesterol. I have given her the cheap seats, which I think actually are the best seats for niacin. This is to give unmodified niacin at 50 mg three times per day and every week or soincrease that dose until she gets to 2 g per day. If she increases it a little bit too fast, she can always back down. It turns out that maybe a baby aspirin with every dose might be useful in the times that she is increasing it and should not be problematic for her. It is equivalent to even less than a full aspirin and four baby aspirins equal a full aspirin to my understanding. Her physical examination does not identify any of the usual described skin lesions that we have noticed. We looked at up to date hypertriglyceridemia, and I gave her a copy of that. It is a little bit full of information and some of which I do not quite understand. It may be reasonable if there is a familial hypertriglyceridemia to think about whether or not if we do not get a good result from our current plans to very strongly consider checking to see whether or not there is a smarter triglyceride person in the country who might have some additional thoughts and/or additional recommendations. Exercise and weight loss are recommended. It turns out that they are not as affective in women as in men. It looks like better control of her diabetes might be appropriate. It sounds like it is very well controlled with an A1c of 6.5. I would like to have her visit again for these levels at your office in perhaps every couple of months to see how things are going, and you could work with her on the niacin question if you are so inclined. PAST HISTORY Past Medical Illnesses: pancreatitis Apr 2006, diabetes zeegkxlv-wau-pykuygx dependent Surgeries/Procedures - General: hysterectomy-subtotal Jun 2005, breast-lumpectomy Mar 2004 FAMILY HISTORY: Mother - diabetes-unknown type and hypertension; Brother 1 - diabetes-unknown type and hypertension; Sister 1 - Age 39, cancer-breast; CARDIAC RISK FACTORS SOCIAL HISTORY Alcohol Use - occasionally and 1 per month; Smoking - never smoked; Diet - caffeine use-1-2 per day, trys to eat healthy and regular foods; Lifestyle - , drives car and active lifestyle; Exercise - some exercise, walking and 1 day per week; Seat Belt Use - always; Occupation - [employer]; Residence - lives with and lives in [place] year round; Place of - [place]; Hours Worked - 40 hours per week; REVIEW OF SYSTEMS GENERAL no change in weight, no change in appetite, energy, no changes INTEGUMENTARY patches of dry skin, fungus being treated with ointment EYES no blurred vision, eye pain, or discharge. EARS, NOSE, THROAT, MOUTH denies any hearing loss, epistaxis, hoarseness or difficulty speaking. RESPIRATORY denies dyspnea, snoring, cough, wheezing or hemoptysis. CARDIOVASCULAR negative for palpitations, chest pain, orthopnea, PND, peripheral edema, syncope or claudication. ABDOMINAL Occasional Heartburn, takes tums hx of acid reflux, none lately GENITOURINARY-FEMALE surgical menopausal without hormonal replacement MUSCULOSKELETAL low back pain occasional, sciatica NEUROLOGICAL headaches, occasionally PSYCHIATRIC denies any history of depression, substance abuse or change in cognitive functions. ENDOCRINE non-insulin dependent diabetes mellitus HEMATOLOGICAL/IMMUNOLOGIC denies any food allergies, seasonal allergies, bleeding disorders. PHYSICAL EXAMINATION VITAL SIGNS: Blood Pressure: 147/80Sitting, Right arm, large cuff Pulse- 110.00/min. Weight- 222.70 lbs. Height- 65.00 Temperature- .00 CONSTITUTIONAL cooperative, alert and oriented,well developed, well nourished, in no acute distress. SKIN warm and dry to touch, no apparent skin lesions, or masses noted. HEAD normocephalic, atraumatic EYES Pupils equal and round, conjunctivae and lids unremarkable, sclera white, no xanthalasma ENT no pallor or cyanosis, dentition good NECK carotid pulses are full and equal bilaterally, JVP normal, no carotid bruit, no thyromegaly CHEST normal symmetry, no tenderness to palpation, normal respiratory excursion, no intercostal retraction, no use of accessory muscles, clear to auscultation and percussion. CARDIAC regular rhythm, S1 normal, S2 normal, No S3 or S4, Apical impulse not displaced, no murmurs, gallops or rubs detected. ABDOMEN abdomen soft, bowel sounds normoactive, no masses, no hepatosplenomegaly, non- tender, no bruits PERIPHERAL PULSES pulses full and equal in all extremities, no bruits auscultated. EXTREMITIES & BACK no deformities, clubbing, cyanosis, erythema or edema observed. There are no spinal abnormalities noted. Normal muscle strength and tone. NEUROLOGICAL no gross motor deficits noted, affect appropriate, oriented to time, person and place. MEDICATIONS UPDATED/STARTED TODAY: Carvedilol 3.125 mg Tablet, 1 p.o. twice daily, 3 months Multiple Vitamin Tablet, 1 p.o. daily, #0 Niacin 50 mg Tablet, 3 daily with food, #30 or #100 Pravastatin 40 mg Tablet, one each evening, 3 months MEDICATIONS REFILLED/STOPPED TODAY: Atenolol 50 mg Tablet 1 p.o. daily Physician Order IMPRESSIONS/PLAN I would be delighted to visit with her again if she is inclined to do so. We will give her an appointment to visit with me in about four months if she is willing. If everything is so good that she cannot stand it, she does not really need to see a garment finisher. She may be interested in another jokeor two. It is a pleasure seeing this young woman. I think that it has been a good visit. If there are further questions that she has, I would be glad to talk to her by phone and see her again as we proceed. Please let me know if you have any questions or concerns. Antonio Caceres M.D. documented in this encounter Plan of Treatment Not on file documented as of this encounter Visit Diagnoses Not on filedocumented in this encounter Care Teams Clerk Manager Relationship Specialty Start Date End Date Diogo Kirk MD PCP - General 07/02/06 12/18/13 Daisy Radford PA-C [address] [place] [address] PCP - General Physician Skin Care Technician 12/19/13 Daisy Radford PA-C [address] [place] [address] PCP - Assigned PCP 12/24/13 08/30/18 Sherry Gutierrez RN Clinic Sanitation Worker Cleaning Equipment Primary Care - CC 10/11/1709/26 Daisy Radford PA-C [address] [place] [address] Assigned PCP 12/24/13 05/15/22 documented as of this encounter
--- OUTSIDE RECORDS SUMMARY | 2023-10-12 07:48 | XMS_ITS | Clinical Summary ---
Author Name Unknown Organization [facility] Address [address] [address] Care Team Providers Care Towboat Operator Name Role Phone Cathleen Hebert MD Primary Care Provider Source Comments You are receiving this document as you are listed as the primary care provider,follow-up provider, or the patient has been referred to you for consultation.This is in compliance with the Medicare and[facility] EHR Incentive Program,which states Providers who transition their patient to another setting of careor provider of care or refers their patient to another provider of care shouldprovide summary care record for each transition of care or referral. [facility] Allergies No known active allergies Medications Medication Sig Dispensed Refills Start Date End Date Status amLODIPine (NORVASC) 10 MG tablet 01/02/2021 Active carvedilol (COREG) 3.125 MG tablet Take 3.125 mg by mouth two times a day. 11/12/2020 Active lisinopril (ZESTRIL) 40 MG tablet Take 40 mg by mouth daily. 11/15/2020 Active metFORMIN (GLUCOPHAGE) 1000 MG tablet Take 1,000 mg by mouth two times a day with meals. 11/27/2020 Active hydroCHLOROthiazid e (ORETIC) 25 MG tablet Take 25 mg by mouth daily. Active rosuvastatin (CRESTOR) 40 MG tablet Take 40 mg by mouth daily. Active omega-3 fatty acids (FISH OIL) 1000 MG capsule Take 2 g by mouth daily. Active MULTIPLE VITAMIN OR Active aspirin EC 81 MG enteric coated tablet Take 81 mg by mouth daily. Active empagliflozin (JARDIANCE) 25 MG tabletIndications: Hypertriglyceridem ia (HRC) Take 1 Tablet by mouth daily. 90 Tablet 2 02/13/2021 Active glimepiride (AMARYL) 4 MG tablet Take 4 mg by mouth daily. 02/20/2022 Active SURE COMFORT PEN NEEDLES 30G X 8 MM 03/05/2022 Active insulin aspart protamine-aspart insulin (NOVOLOG MIX 70/30) (70-30) 100 UNIT/ML pen injectionIndicatio ns:Diabetes Mellitus Inject 30 Units subcutaneously two times a day with meals. Indications: Diabetes Mellitus 30 mL 3 04/01/2022 Active gemfibrozil (LOPID) 600 MG tablet Take 1 Tablet (600 mg) by mouth two times a day before meals. 180 Tablet 3 04/01/2022 Active Continuous Blood Gluc Sensor (FREESTYLE GLADIS 2 SENSOR) MISCIndications:Hy pertriglyceridemia (HRC),Type 2 diabetes mellitus with other neurologic complication (HRC),Essential hypertension (HRC),Dyslipidemia (high LDL; low HDL) (HRC) Use 1 sensor every 14 days 7 Each 3 04/01/2022 Active Continuous Blood Gluc Transmit (DEXCOM G6 TRANSMITTER) MISCIndications:Ty pe 2 diabetes mellitus with other neurologic complication (HRC) Change once every 90 days 1 Each 3 04/06/2022 Active Continuous Blood Gluc Sensor (DEXCOM G6 SENSOR) MISCIndications:Ty pe 2 diabetes mellitus with other neurologic complication (HRC) Use once every 10 days 3 Each 11 04/06/2022 Active Active Problems Problem Noted Date Diagnosed Date HTN (hypertension) 02/13/2021 Uncontrolled type 2 diabetes mellitus with hyper glycemia 02/13/2021 Hypertriglyceridemia 02/13/2021 Social History Tobacco Use Types Packs/Day Years Used Date Smoking Tobacco: Never Smokeless Tobacco: Never Sex and Gender Information Value Date Recorded Sex Assigned at Not on file Gender Identity Not on file Sexual Orientation Not on file Last Filed Vital Signs Vital Sign Reading Time Taken Comments Blood Pressure 146/79 04/01/2022 3:30 PM CDT Pulse 92 04/01/2022 3:30 PM CDT Temperature - - Respiratory Rate - - Oxygen Saturation - - Inhaled Oxygen Concentration - - Weight 87.7 kg (193 lb 4.8 oz) 04/01/2022 3:30 P M CDT Height 163.8 cm (5' 4.5) 04/01/2022 3:30 PM CDT Body Mass Index 32.67 04/01/2022 3:30 PM CDT Plan of Treatment Health Maintenance Due Date Last Done Comments Cervical Cancer Screening Due 1965 Colon Cancer Screening Plan Due 1965 Diabetes: Creatinine 1965 Diabetes: Eye Exam 1965 Diabetes: Foot Exam 1965 Diabetes: Lipid Panel 1965 Diabetes: Urine Microalbumin 1965 Hep C Screening (Preventive Services) 1965 Mammogram 1965 HIV Screening (Preventive Services) 1982 Adult Preventive Visit 1984 HepB (1) 1985 Pneumococcal (2 - PCV) 05/07/2016 05/07/2015 Zoster/Shingles (2 of 2) 01/22/2022 11/27/2021 Diabetes: HGBA1C 07/02/2022 04/01/2022 COVID-19 Vaccine ( season) 2023 07/25/2021, 10/05/2020, 09/14/2020 Influenza (#1) 2023 05/01/2021, 03/0 08/2020, 03/28/2015, Additional history exists DTaP/Tdap/Td (3 - Tdap) 01/02/2031 01/02/2021, 07/19 HepA Aged Out No longer eligi ble based on patient's age to complete this topic Hib Aged Out No longer eligi ble based on patient's age to complete this topic IPV (Polio) Aged Out No longer eligi ble based on patient's age to complete this topic MCV4 Aged Out No longer eligi ble based on patient's age to complete this topic Procedures Procedure Name Priority Date/Time Associated Diagnosis Comments POCT GLYCOSYLATED HEMOGLOBIN (HGB A1C) Routine 04/01/2022 3:22 PM CDT Hypertriglyceridemi a from Last 3 Months or Most Recently Relevant to Health Maintenance Results * (ABNORMAL) POCT glycosylated hemoglobin (Hb A1C) (04/01/2022 3:22 PM CDT) Hemoglobin A1C (Rapid) 8.1(A) 5.6 % POCT Cartridge Lot# [id number] POCT Blood 04/01/2022 3:22 PM CDT Loyda ALBRECHT ET POINT OF CARE TEST ENTER/EDIT ORDERABLES POCT from Last 3 Months or Most Recently Relevant to Health Maintenance Care Teams Towboat Operator Relationship Specialty Start Date End Date Cathleen Hebert MD [address] [place] [address] PCP - General Family Practice 04/01/22
--- OUTSIDE RECORDS SUMMARY | 2023-10-12 07:48 | XMS_ITS | Encounter Summary ---
Author Name Unknown Organization [facility] Address [address] [place] [address] Care Team Providers Care Primary Teaching Assistant Name Role Phone Daisy Radford PA-C Primary Care Pr ovider Daisy Radford PA-C Unavailable Daisy Radford PA-C Unavailable Encounter Details Date Type Department Care Team (Late st Contact Info) Description 04/05/2018 My[facility] Medical Advice [address] [phone] Praveena Juares, LEEANNA GREENHOUSE TECHNICIAN [address] [place] [address] [address] [place], [place] [address] Social History Tobacco Use Types Packs/Day Years Used Date Smoking Tobacco: Never Smokeless Tobacco: Never Comments:NA Alcohol Use Standard Drinks/Week Comments No 0 (1 standard drink = 0.6 oz pur e alcohol) occasionally Sex and Gender Information Value Date Recorded Sex Assigned at Female 07/06/2018 4:08 PM EMAIL PRODUCER Gender Identity Female 07/06/2018 4:08 PM EMAIL PRODUCER Sexual Orientation Straight 07/06/2018 4: 08 PM EMAIL PRODUCER documented as of this encounter Plan of Treatment Not on file documented as of this encounter Visit Diagnoses Not on filedocumented in this encounter Care Teams Primary Teaching Assistant Relationship Specialty Start Date End Date Daisy Radford PA-C [address] [place] [address] PCP - General Physician Security Escort 12/19/13 Daisy Radford PA-C [address] [place] [address] PCP - Assigned PCP 12/24/13 08/30/18 Daisy Radford PA-C [address] [place] [address] Assigned PCP 12/24/13 05/15/22 documented as of this encounter
--- OUTSIDE RECORDS SUMMARY | 2023-10-12 07:48 | XMS_ITS | Encounter Summary ---
Author Name Unknown Organization [facility] Address [address] [place] [address] Care Team Providers Care Riding Silks Custodian Name Role Phone Jaden Barrett MD Primary Care Provider Daisy Radford PA-C Primary Care Pr ovider Sherry Gutierrez RN Unavailable [phone] Daisy Radford PA-C Unavailable Daisy Radford PA-C Unavailable Encounter Details Date Type Department Care Team (Late st Contact Info) Description 10/19/2010 MyC Medical Advice [facility] [id number] [place] [phone] Jaden Barrett MD [address] [place] [phone] Social History Tobacco Use Types Packs/Day Years Used Date Smoking Tobacco: Never Smokeless Tobacco: Never Alcohol Use Standard Drinks/Week Comments Yes 0 (1 standard drink = 0.6 oz pur e alcohol) occasionally Sex and Gender Information Value Date Recorded Sex Assigned at Female 07/06/2018 4:08 PM HOSPITAL CODER Gender Identity Female 07/06/2018 4:08 PM HOSPITAL CODER Sexual Orientation Straight 07/06/2018 4: 08 PM HOSPITAL CODER documented as of this encounter Plan of Treatment Not on file documented as of this encounter Visit Diagnoses Not on filedocumented in this encounter Care Teams Riding Silks Custodian Relationship Specialty Start Date End Date Jaden Barrett MD PCP - General 07/02/06 12/18/13 Daisy Radford PA-C [address] [place] [address] PCP - General Physician Fern Picker 12/19/13 Daisy Radford PA-C [address] [place] [address] PCP - Assigned PCP 12/24/13 08/30/18 Sherry Gutierrez RN Clinic Bi Solutions Architect Primary Care - CC 10/11/1709/26 Daisy Radford PA-C [address] [place] [address] Assigned PCP 12/24/13 05/15/22 documented as of this encounter
--- OUTSIDE RECORDS SUMMARY | 2023-10-12 07:48 | XMS_ITS | Encounter Summary ---
Author Name Unknown Organization [facility] Address [address] [place] [address] Care Team Providers Care Fashion Buyer Name Role Phone Jaden Barrett MD Primary Care Provider Daisy Radford PA-C Primary Care Pr ovider Sherry Gutierrez RN Unavailable [phone] Daisy Radford PA-C Unavailable Daisy Radford PA-C Unavailable Encounter Details Date Type Department Care Team (Late st Contact Info) Description 11/04/2011 MyC Medical Advice [facility] [id number] [place] [phone] Jaden Barrett MD [address] [place] [phone] Social History Tobacco Use Types Packs/Day Years Used Date Smoking Tobacco: Never Smokeless Tobacco: Never Alcohol Use Standard Drinks/Week Comments Yes 0 (1 standard drink = 0.6 oz pur e alcohol) occasionally Sex and Gender Information Value Date Recorded Sex Assigned at Female 07/06/2018 4:08 PM BIT BENDER Gender Identity Female 07/06/2018 4:08 PM BIT BENDER Sexual Orientation Straight 07/06/2018 4: 08 PM BIT BENDER documented as of this encounter Plan of Treatment Not on file documented as of this encounter Visit Diagnoses Not on filedocumented in this encounter Care Teams Fashion Buyer Relationship Specialty Start Date End Date aJden Barrett MD PCP - General 07/02/06 12/18/13 Daisy Radford PA-C [address] [place] [address] PCP - General Physician Endocrinology Nurse 12/19/13 Daisy Radford PA-C [address] [place] [address] PCP - Assigned PCP 12/24/13 08/30/18 Sherry Gutierrez RN Clinic Patient Experience Coordinator Primary Care - CC 10/11/1709/26 Daisy Radford PA-C [address] [place] [address] Assigned PCP 12/24/13 05/15/22 documented as of this encounter
--- OUTSIDE RECORDS SUMMARY | 2023-10-12 07:48 | XMS_ITS | Encounter Summary ---
Author Name Unknown Organization [facility] Address [address] [place] [address] Care Team Providers Care Photograph Inspector Name Role Phone Jaden Barrett MD Primary Care Provider Daisy Radford PA-C Primary Care Pr ovider Sherry Gutierrez RN Unavailable Daisy Radford PA-C Unavailable Daisy Radford PA-C Unavailable Encounter Details Date Type Department Care Team (Late st Contact Info) Description 06/07/[address] [phone] [facility] Social History Tobacco Use Types Packs/Day Years Used Date Smoking Tobacco: Never Smokeless Tobacco: Never Alcohol Use Standard Drinks/Week Comments Yes 0 (1 standard drink = 0.6 oz pur e alcohol) occasionally Sex and Gender Information Value Date Recorded Sex Assigned at Female 07/06/2018 4:08 PM MANAGER CONTACT Gender Identity Female 07/06/2018 4:08 PM MANAGER CONTACT Sexual Orientation Straight 07/06/2018 4: 08 PM MANAGER CONTACT documented as of this encounter Plan of Treatment Not on file documented as of this encounter Visit Diagnoses Not on filedocumented in this encounter Care Teams Photograph Inspector Relationship Specialty Start Date End Date Nena Jaden Palafox MD PCP - General 07/02/06 12/18/13 Daisy Radford PA-C [address] [place] [address] PCP - General Physician Community Board Member 12/19/13 Daisy Radford PA-C [address] [place] [address] PCP - Assigned PCP 12/24/13 08/30/18 Sherry Gutierrez RN Clinic Wool Tamper Primary Care - CC 10/11/1709/26 Daisy Radford PA-C [address] [place] [address] Assigned PCP 12/24/13 05/15/22 documented as of this encounter
--- OUTSIDE RECORDS SUMMARY | 2023-10-12 07:48 | XMS_ITS | Encounter Summary ---
Author Name Unknown Organization [facility] Address [address] [place] [address] Care Team Providers Care Cafeteria Supervisor Name Role Phone Daisy Radford PA-C Primary Care Pr ovider Daisy Radford PA-C Unavailable Encounter Details Date Type Department Care Team (Late st Contact Info) Description 03/05/2020 MyC Medical Advice [address] [phone] Praveena Juares APRN WATERPROOF COATING MACHINE TENDER [address] [place] [address] [address] [place] [address] Social History Tobacco Use Types Packs/Day Years Used Date Smoking Tobacco: Never Smokeless Tobacco: Never Comments:NA Alcohol Use Standard Drinks/Week Comments No 0 (1 standard drink = 0.6 oz pur e alcohol) occasionally PHQ-2 Answer Date Recorded PHQ-2 Score 0 10/24/2018 Sex and Gender Information Value Date Recorded Sex Assigned at Female 07/06/2018 4:08 PM CLOTH DOUBLING MACHINE OPERATOR Gender Identity Female 07/06/2018 4:08 PM CLOTH DOUBLING MACHINE OPERATOR Sexual Orientation Straight 07/06/2018 4: 08 PM CLOTH DOUBLING MACHINE OPERATOR documented as of this encounter Plan of Treatment Not on file documented as of this encounter Visit Diagnoses Not on filedocumented in this encounter Care Teams Cafeteria Supervisor Relationship Specialty Start Date End Date Daisy Radford PA-C [address] [place] [address] PCP - General Physician Meal Cooker 12/19/13 Daisy Radford PA-C [address] [place] [address] Assigned PCP 12/24/13 05/15/22 documented as of this encounter
--- OUTSIDE RECORDS SUMMARY | 2023-10-12 07:48 | XMS_ITS | Encounter Summary ---
Author Name Unknown Organization [facility] Address [address] [place] [address] Care Team Providers Care Steel Barrel Reamer Name Role Phone Daisy Radford PA-C Primary Care Pr ovider Daisy Radford PA-C Unavailable Daisy Radford PA-C Unavailable Encounter Details Date Type Department Care Team (Late st Contact Info) Description 11/18/2017 MyC Medical Advice [facility] [id number] [place] [phone] Daisy Radford PA-C [id number] [place] [address] Social History Tobacco Use Types Packs/Day Years Used Date Smoking Tobacco: Never Smokeless Tobacco: Never Comments:NA Alcohol Use Standard Drinks/Week Comments No 0 (1 standard drink = 0.6 oz pur e alcohol) occasionally Sex and Gender Information Value Date Recorded Sex Assigned at Female 07/06/2018 4:08 PM SPACE BUYER Gender Identity Female 07/06/2018 4:08 PM SPACE BUYER Sexual Orientation Straight 07/06/2018 4: 08 PM SPACE BUYER documented as of this encounter Miscellaneous Notes * Telephone Encounter - Maddie Lange RN - 11/18/2017 2:55 PM CDT See my chart and refill encounter Maddie Lange RN documented in this encounter Plan of Treatment Not on file documented as of this encounter Visit Diagnoses Not on filedocumented in this encounter Care Teams Steel Barrel Reamer Relationship Specialty Start Date End Date Daisy Radford PA-C [address] [place] [address] PCP - General Physician Smudger 12/19/13 Daisy Radford PA-C [address] [place] [address] PCP - Assigned PCP 12/24/13 08/30/18 Daisy Radford PA-C [address] [place] [address] Assigned PCP 12/24/13 05/15/22 documented as of this encounter
--- OUTSIDE RECORDS SUMMARY | 2023-10-12 07:48 | XMS_ITS | Encounter Summary ---
Author Name Unknown Organization [facility] Address [address] [place] [address] Care Team Providers Care Peer Specialist Name Role Phone Daisy Radford PA-C Primary Care Pr ovider Sherry Gutierrez RN Unavailable Daisy Radford PA-C Unavailable Daisy Radford PA-C Unavailable Encounter Details Date Type Department Care Team (Late st Contact Info) Description 03/08/2015 [facility] [place] [address] [phone] Martita Fernandes, [facility] Social History Tobacco Use Types Packs/Day Years Used Date Smoking Tobacco: Never Smokeless Tobacco: Never Alcohol Use Standard Drinks/Week Comments Yes 0 (1 standard drink = 0.6 oz pur e alcohol) occasionally Sex and Gender Information Value Date Recorded Sex Assigned at Female 07/06/2018 4:08 PM SLEEVE SEPARATOR Gender Identity Female 07/06/2018 4:08 PM SLEEVE SEPARATOR Sexual Orientation Straight 07/06/2018 4: 08 PM SLEEVE SEPARATOR documented as of this encounter Plan of Treatment Not on file documented as of this encounter Visit Diagnoses Not on filedocumented in this encounter Care Teams Peer Specialist Relationship Specialty Start Date End Date Daisy Radford PA-C [address] [place] [address] PCP - General Physician Windmill Mechanic 12/19/13 Daisy Radford PA-C [address] [place] [address] PCP - Assigned PCP 12/24/13 08/30/18 Sherry Gutierrez, [facility] Clinic Comparator Operator Primary Care - CC 10/11/1709/26 Daisy Radford PA-C [address] [place] [address] Assigned PCP 12/24/13 05/15/22 documented as of this encounter
--- OUTSIDE RECORDS SUMMARY | 2023-10-12 07:48 | XMS_ITS | Encounter Summary ---
Author Name Unknown Organization [facility] Address [address] [place] [address] Care Team Providers Care Manager Sql Name Role Phone Daisy Radford PA-C Primary Care Pr ovider Daisy Radford PA-C Unavailable Daisy Radford PA-C Unavailable Reason for Visit * Reason Onset Date Comments Refill Request 08/19/2018 hydrochlorothiaz srikanth 12.5 MG TABS tablet Refill Request 08/19/2018 glimepiride (AMA RYL) 2 MG tablet Encounter Details Date Type Department Care Team (Late st Contact Info) Description 08/19/2018 Refill [facility] [address] [place] [phone] Daisy Radford PA-C [address] [place] [address] Refill Request (hydrochlorothiazide 12.5 MG TABS tablet); Refill Request (glimepiride (AMARYL) 2 MG tablet) Social History Tobacco Use Types Packs/Day Years Used Date Smoking Tobacco: Never Smokeless Tobacco: Never Comments:NA Alcohol Use Standard Drinks/Week Comments No 0 (1 standard drink = 0.6 oz pur e alcohol) occasionally PHQ-2 Answer Date Recorded PHQ-2 Score 0 07/05/2018 Sex and Gender Information Value Date Recorded Sex Assigned at Female 07/06/2018 4:08 PM UNDERCUTTER Gender Identity Female 07/06/2018 4:08 PM UNDERCUTTER Sexual Orientation Straight 07/06/2018 4: 08 PM UNDERCUTTER documented as of this encounter Miscellaneous Notes * Telephone Encounter - Praveena Juares RN - 08/19/2018 11:12 AM CST Routing refill request to provider for review/approval because: Labs out of range: BP Labs not current: NA Mychart sent to patient requesting appt. Pt was due in April Pended for 30 days Praveena Juares RN, BSN RCUTTER * Telephone Encounter - Nadeem Valle - 08/19/2018 10:51 AM CST Requested Prescriptions Pending Prescriptions Disp Refills ??? hydrochlorothiazide (HYDRODIURIL) 12.5 MG tablet [Pharmacy Med Name: HYDROCHLOROTHIAZIDE 12.5MGTABLETS] 90 tablet 0 Last Written Prescription Date: 01/27/2018 Last Fill Quantity: 90 tablet , # refills: 1 Last office visit: 01/27/2018 with prescribing provider: 01/27/2018 Future Office Visit: Sig: TAKE 1 TABLET BY MOUTH DAILY. Diuretics (Including Combos) Protocol Failed - 08/19/2018 10:36 AM Failed - Blood pressure under 140/90 in past 12 months BP Readings from Last 3 Encounters: 04/01/18 150/70 01/27/18 128/80 01/13/18 136/88 Failed - Normal serum sodium on file in past 12 months Recent Labs Lab Test 07/18/18 0902 NA 131* Passed - Recent (12 mo) or future (30 days) visit within the authorizing provider's specialty Patient had office visit in the last 12 months or has a visit in the next 30 days with authorizing provider or within the authorizing provider's specialty. See Patient Info tab in inbasket, or Choose Columns in Meds & Orders section of the refill encounter. Passed - Medication is active on med list Passed - Patient is age 18 or older Passed - No active pregancy on record Passed - Normal serum creatinine on file in past 12 months Recent Labs Lab Test 07/18/18 0902 CR 0.62 Passed - Normal serum potassium on file in past 12 months Recent Labs Lab Test 07/18/[address]01 POTASSIUM 4.1 Passed - No positive test in past 12 months ??? glimepiride (AMARYL) 2 MG tablet [Pharmacy Med Name: GLIMEPIRIDE 2MG TABLETS] 90 tablet 0 Last Written Prescription Date: 12/27/2017 Last Fill Quantity: 90 tablet, # refills: 1 Last office visit: 01/27/2018 with prescribing provider: 01/27/2018 Future Office Visit: Sig: TAKE 1 TABLET BY MOUTH EVERY MORNING BEFORE BREAKFAST. Sulfonylurea Agents Failed - 08/19/2018 10:36 AM Failed - Blood pressure less than 140/90 in past 6 months BP Readings from Last 3 Encounters: 04/01/18 150/70 01/27/18 128/80 01/13/18 136/88 Failed - Patient has documented A1c within the specified period of time. If HgbA1C is 8 or greater, it needs to be on file within the past 3 months. If less than 8, must beon file within the past 6 months. Recent Labs Lab Test 12/27/17916 A1C 7.5* Failed - Recent (6 mo) or future (30 days) visit within the authorizing provider's specialty Patient had office visit in the last 6 months or has a visit in the next 30 days with authorizing provider or within the authorizing provider's specialty. See Patient Info tab in inbasket, or Choose Columns in Meds & Orders section of the refill encounter. Passed - Patient has documented LDL within the past 12 mos. Recent Labs Lab Test 07/18/18 09 LDL Cannot estimate LDL when triglyceride exceeds 400 mg/dL 29 Passed - Patient has had a Microalbumin in the past 12 mos. Recent Labs Lab Test 12/27/17 0917 MICROL 12 UMALCR 22.22 Passed - Medication is active on med list Passed - Patient is age 18 or older Passed - No active on record Passed - Patient has a recent creatinine (normal) within the past 12 mos. Recent Labs Lab Test 07/18/18 0902 CR 0.62 Passed - Patient has not had a positive test within the past 12 mos. Nadeem Valle XRT RCUTTER documented in this encounter Plan of Treatment Not on file documented as of this encounter Visit Diagnoses Diagnosis Essential hypertension with goal blood pressure less than 140/90 Type 2 diabetes mellitus without complication, with long-term current use of insulin (H) documented in this encounter Care Teams Manager Sql Relationship Specialty Start Date End Date Daisy Radford PA-C [address] [place] [address] PCP - General Physician Experimental Welder 12/19/13 Daisy Radford PA-C [address] [place] [address] PCP - Assigned PCP 12/24/13 08/30/18 Daisy Radford PA-C [address] [place] [address] Assigned PCP 12/24/13 05/15/22 documented as of this encounter
--- OUTSIDE RECORDS SUMMARY | 2023-10-12 07:48 | XMS_ITS | Encounter Summary ---
Author Name Unknown Organization [facility] Address [address] [place] [address] Care Team Providers Care Heel Gummer Name Role Phone Daisy Radford PA-C Primary Care Pr ovider Daisy Radford PA-C Unavailable Daisy Radford PA-C Unavailable Encounter Details Date Type Department Care Team (Late st Contact Info) Description 08/19/2018 MyC Medical Advice [address] [phone] Praveena Juares, DEBONER ROBOT PROGRAMMER [address] [place] [address] [address] [place], [place] [phone] Social History Tobacco Use Types Packs/Day Years Used Date Smoking Tobacco: Never Smokeless Tobacco: Never Comments:NA Alcohol Use Standard Drinks/Week Comments No 0 (1 standard drink = 0.6 oz pur e alcohol) occasionally PHQ-2 Answer Date Recorded PHQ-2 Score 0 07/05/2018 Sex and Gender Information Value Date Recorded Sex Assigned at Female 07/06/2018 4:08 PM AIR QUALITY ENGINEER Gender Identity Female 07/06/2018 4:08 PM AIR QUALITY ENGINEER Sexual Orientation Straight 07/06/2018 4: 08 PM AIR QUALITY ENGINEER documented as of this encounter Plan of Treatment Not on file documented as of this encounter Visit Diagnoses Not on filedocumented in this encounter Care Teams Heel Gummer Relationship Specialty Start Date End Date Daisy Radford PA-C [address] [place] [address] PCP - General Physician Supervisor Title 12/19/13 Daisy Radford PA-C [address] [place] [address] PCP - Assigned PCP 12/24/13 08/30/18 Daisy Radford PA-C [address] [place] [address] Assigned PCP 12/24/13 05/15/22 documented as of this encounter
--- OUTSIDE RECORDS SUMMARY | 2023-10-12 07:48 | XMS_ITS | Encounter Summary ---
Author Name Unknown Organization [facility] Address [address] [place] [address] Care Team Providers Care Corn Crop Supervisor Name Role Phone Daisy Radford PA-C Primary Care Pr ovider Daisy Radford PA-C Unavailable Reason for Visit * Reason Onset Date Comments Forms 10/27/2019 Encounter Details Date Type Department Care Team (Late st Contact Info) Description 10/27/2019 MyC Medical Advice [address] [phone] Daisy Radford PA-C [address] [place] [address] Forms Social History Tobacco Use Types Packs/Day Years Used Date Smoking Tobacco: Never Smokeless Tobacco: Never Comments:NA Alcohol Use Standard Drinks/Week Comments No 0 (1 standard drink = 0.6 oz pur e alcohol) occasionally PHQ-2 Answer Date Recorded PHQ-2 Score 0 10/24/2018 Sex and Gender Information Value Date Recorded Sex Assigned at Female 07/06/2018 4:08 PM COMMERCIAL FISHERMAN Gender Identity Female 07/06/2018 4:08 PM COMMERCIAL FISHERMAN Sexual Orientation Straight 07/06/2018 4: 08 PM COMMERCIAL FISHERMAN documented as of this encounter Plan of Treatment Not on file documented as of this encounter Visit Diagnoses Not on filedocumented in this encounter Care Teams Corn Crop Supervisor Relationship Specialty Start Date End Date Daisy Radford PA-C [address] [place] [address] PCP - General Physician Medical Staff Director 12/19/13 Daisy Radford PA-C [address] [place] [address] Assigned PCP 12/24/13 05/15/22 documented as of this encounter
--- OUTSIDE RECORDS SUMMARY | 2023-10-12 07:48 | XMS_ITS | Referral Summary ---
Author Name Unknown Organization [facility] Address [address] [place] [address] Care Team Providers Care Die Turner Name Role Phone Daisy Radford PA-C Primary [...] 23 valent 05/07/2015 TDAP Vaccine (Adacel) 07/19/2007 Social History Tobacco Use Types Packs/Day Years [...] Sex Assigned at Female 07/06/2018 4:08 PM MEDICAL RADIATION DOSIMETRIST Gender Identity Female 07/06/2018 4:08 PM MEDICAL RADIATION DOSIMETRIST Sexual Orientation Straight 07/06/2018 4: 08 PM MEDICAL RADIATION DOSIMETRIST Last Filed Vital Signs Vital Sign Reading Time Taken Comments Blood Pressure 139/82 05/15/2019 8:37 AM MEDICAL RADIATION DOSIMETRIST Pulse 86 05/15/2019 8:37 AM MEDICAL RADIATION DOSIMETRIST Temperature 36.7 ??C (98 ??F) 05/15/2019 8:37 AM MEDICAL RADIATION DOSIMETRIST Respiratory Rate 17 05/15/2019 8:37 AM MEDICAL RADIATION DOSIMETRIST Oxygen Saturation 98% 05/15/2019 8:37 AM MEDICAL RADIATION DOSIMETRIST Inhaled Oxygen Concentration - - Weight 88.7 kg (195 lb 9.6 oz) 05/15/2019 8:37 A M MEDICAL RADIATION DOSIMETRIST Height 163.8 cm (5' 4.5) 05/15/2019 8:37 AM MEDICAL RADIATION DOSIMETRIST Body Mass Index 33.06 05/15/2019 8:37 AM MEDICAL RADIATION DOSIMETRIST Plan of Treatment Not on file Advance Directives For more information, please contact: [phone] * Full Code (Latest Code Status on File) Date Activated Date Inactivated Comments 10/08/2017 7:25 AM * Full Code Date Activated Date Inactivated Comments 10/04/2017 11:55 PM 10/08/2017 7:25 AM Care Teams Die Turner Relationship Specialty Start Date End Date Daisy Radford PA-C [address] [place] [address] PCP - General Physician Poster 12/19/13
--- OUTSIDE RECORDS SUMMARY | 2023-10-12 07:48 | XMS_ITS | Encounter Summary ---
Author Name Unknown Organization [facility] Address [address] [place] [address] Care Team Providers Care Distribution Clerk Name Role Phone Daisy Radford PA-C Primary Care Pr ovider Daisy Radford PA-C Unavailable Encounter Details Date Type Department Care Team (Late st Contact Info) Description 11/07/2019 MyC Medical Advice [address] [phone] Maddie Lange RN Social History Tobacco Use Types Packs/Day Years Used Date Smoking Tobacco: Never Smokeless Tobacco: Never Comments:NA Alcohol Use Standard Drinks/Week Comments No 0 (1 standard drink = 0.6 oz pur e alcohol) occasionally PHQ-2 Answer Date Recorded PHQ-2 Score 0 10/24/2018 Sex and Gender Information Value Date Recorded Sex Assigned at Female 07/06/2018 4:08 PM FOCUS PULLER Gender Identity Female 07/06/2018 4:08 PM FOCUS PULLER Sexual Orientation Straight 07/06/2018 4: 08 PM FOCUS PULLER documented as of this encounter Plan of Treatment Not on file documented as of this encounter Visit Diagnoses Not on filedocumented in this encounter Care Teams Distribution Clerk Relationship Specialty Start Date End Date Daisy Radford PA-C [id number] [place] [address] PCP - General Physician Rugby Union Footballer 12/19/13 Daisy Radford PA-C [address] [place] [address] Assigned PCP 12/24/13 05/15/22 documented as of this encounter
== END 2023-10-12 07:45 | disposition home or self-care (01) ==
LOC: NFLDREF 07:45
PROVIDERS: PCP Family Medicine; Visit Provider Family Medicine
DX: E11.40 Type 2 diabetes mellitus with diabetic neuropathy, unspecified (principal)
CPT/HCPCS: 82043; 82570

== ENCOUNTER 2025-03-01 16:14 | Outpatient (CLI) | payer BC, SELFPAY | END 2025-03-01 16:15 | disposition home or self-care (01) | PROVIDERS: PCP Family Medicine; Visit Provider Family Medicine | DX: D64.9 Anemia, unspecified (principal); E78.1 Pure hyperglyceridemia; I10 Essential (primary) hypertension; E11.42 Type 2 diabetes mellitus with diabetic polyneuropathy; Z79.4 Long term (current) use of insulin | CPT/HCPCS: 80053; 82043; 82570; 82607; 82728; 83540 ==

== ENCOUNTER 2025-04-02 20:32 | Inpatient (IN) | payer BC, SELFPAY ==
--- OUTSIDE RECORDS SUMMARY | 2007-06-29 09:55 | XMS_ITS | Continuity of Care Document ---
Author Organization [facility] Address [address] [address] [place] [address] Phone Care Team Providers Care Train Planner Name Role Phone Unavailable Unavailable Unavailable Allergies, Adverse Reactions, Alerts Substance Reaction Status Criticality No Known allergies Medications Medication Instructions Dosage Effective Dates (start - stop) Status Comments OMACOR 1 GCAPSULE 2 tablets by mouth twice a day - Active gemfibrozil 600 mg Tab Take one tablet by mouth two times per day - Active atenolol 50 mg Tab Take one tablet by mouth daily - Active tamoxifen 20 mg Tab Take 1 tablet by mouth daily - Active HUMULIN R (unknown strength) units subcutaneous twice daily, prn Not Available - Active Lantus unknown Take units before bedtime, 12 units - Active Procedures Procedure Date Offic/outpt E&m Estab Minor 10 06 Init Inpt Cons New/estab Mod 5 06 Subsqt Hosp-da E&m Minr Compl 6 Advance Directives Directive Yes / No Effective Date File Name No Information Encounters Encounter Description Practice Location Reason(s) For Visit Diagnoses Date Provider Providers Copied on Encounter [facility], [address] [address], [place], [place], [id number], [place] tel:[phone] [facility] No Information 8 No Information Offic/outpt E&m Estab Minor 10 [facility], [address] [address], [place], [place], [id number], [place] tel:[phone] [facility] Acute Pancreatitis 6 Lokesh Figueroa. [address] [facility], [facility] [address], [place], [place], [id number], [place]. [phone] Init Inpt Cons New/estab Mod 5 [facility], [address] [address], [place], [place], [id number], tel:[phone] [facility] No Information 6 Lokesh Figueroa. [address] [facility], [facility] [address], [place], [place], [id number], [place]. [phone] Subsqt Hosp-da E&m Minr Compl [facility], [address] [address], [place], [place], [id number], [place] [phone] [facility] No Information 6 No Information Family History Family Member Type Diagnosis Age At Onset No Information Payers Payer name Insurance type Covered alliance party ID Authorjose dykes(s) [facility] [employer] [id number] Social History Type Description Quantity Date Captured Comments Sex Female Smoking Status No Information Chief Complaint And Reason For Visit No Information Reason For Referral Reason For Referral No Information History Of Present Illness Encounter Date Complaint History Of Prese nt Illness No Information Functional Status Date Functional Assessmen t No Information Instructions Date Instruction Additional Infor mation No Information Assessments Type Assessment Date No Information Patient Care Teams Name Effective Dates (start - stop) Status Members No Information
[2025-04-02 20:45] VITALS: BP 124/75; PULSE 93; RESP 16; TEMP 36.7; O2SAT 97; BMI 29.1
[2025-04-02 21:20] LABS: Appearance Urine Cloudy (Clear)
--- NOTE | 2025-04-02 21:22 | ED.ABDPAIN ---
HPI - Abdominal Pain General Date Seen: 04/02/25 Chief Complaint: Abdominal Pain Stated Complaint: pain in mid stomach/ COVID+ Time Seen by Provider: 04/02/25 20:49 Source: patient Mode of arrival: ambulatory Limitations: no limitations History of Present Illness HPI narrative: Patient is a 59-year-old female presenting to the emergency department for epigastric pain and concern of a UTI. She tested positive for COVID 5 days ago. She states she has been coughing a lot and has noticed some pain to her epigastric region. Unsure if this is related to coughing or something else. Does states she has previously had pancreatitis but this pain does not feel the same. States the pain seems to come in waves. Currently the pain is minimal. Has not noticed anything makes the pain better or worse. Has not had much of an appetite but denies any nausea or vomiting. When she does a bowel movement she states is liquidy. Has not had any fevers or chills. Denies any chest pain or shortness of breath. Does state when the pain is worse she does feel like it is hard to take a deep breath. Denies headache, lightheadedness, dizziness, weakness, numbness. She is also concerned about a UTI. States the past few days she has been having difficulty urinating and will have pain with urination. Has had UTIs before and states this does seem similar. No other concerns noted. Related Data Home Medications ?Medication ?Instructions ?Recorded ?Confirmed aspirin 81 mg tablet,delayed 81 mg PO QDAY 03/05/22 03/01/25 release multivitamin (Daily Multi-Vitamin 1 tab PO QDAY 03/05/22 03/01/25 tablet) Previous Rx's ?Medication ?Instructions ?Recorded omega-3 acid ethyl esters 1 gram 4 cap PO DAILY #120 caps 07/04/24 capsule amlodipine 10 mg tablet 10 mg PO QDAY #90 tabs 01/31/25 empagliflozin 25 mg tablet 25 mg PO QDAY #90 tabs 01/31/25 (Jardiance) gemfibrozil 600 mg tablet 600 mg PO BID #180 tabs 01/31/25 glimepiride 4 mg tablet 4 mg PO QDAY #90 tabs 01/31/25 hydrochlorothiazide 25 mg tablet 25 mg PO DAILY #90 tabs 01/31/25 lisinopril 40 mg tablet 40 mg PO DAILY #90 tabs 01/31/25 metformin 1,000 mg tablet 1,000 mg PO BID #180 tabs 01/31/25 pen needle, diabetic 31 gauge x #100 ea 01/31/2511/10 (Sure Comfort Pen Needle) rosuvastatin 40 mg tablet 40 mg PO DAILY #90 tabs 01/31/25 blood-glucose sensor (FreeStyle #6 ea 03/01/25 Ramirez 3 Plus Sensor device) carvedilol 3.125 mg tablet 3.125 mg PO BID #180 tabs 03/01/25 insulin glargine 100 unit/mL (3 60 unit (0.6 mL) subcut QPM #15 mL 03/12/25 mL) subcutaneous pen (Basaglar KwikPen U-100 Insulin) Allergies Allergy/AdvReac Type Severity Reaction Status Date / Time No Known Allergies Allergy Unknown Verified 03/01/25 16:00 Review of Systems Status of ROS Reports: 10 or more systems reviewed and unremarkable except as noted in History and below PFSH PFS Medical History Proteinuria ?R80.9 - Proteinuria, unspecified (ICD-10) Diabetes mellitus with insulin therapy ?E11.9 - Type 2 diabetes mellitus without complications (ICD-10) ?Z79.4 - long term care pharmacist (current) use of insulin (ICD-10) Diabetes mellitus, insulin dependent (IDDM), uncontrolled Onychomycosis of toenail ?B35.1 - Tinea unguium (ICD-10) Nonproliferative diabetic retinopathy (~01/2022) ?E11.3299 - Type 2 diabetes mellitus with mild nonproliferative diabetic retinopathy without macular edema, unspecified eye (ICD-10) Type 2 diabetes mellitus (2000) ?E11.9 - Type 2 diabetes mellitus without complications (ICD-10) Obesity with body mass index (BMI) of 30.0 to 39.9 ?E66.9 - Obesity, unspecified (ICD-10) Malignant neoplasm of breast (2003) ?C50.919 - Malignant neoplasm of unspecified site of unspecified female breast (ICD-10) Hypertriglyceridemia ?E78.1 - Pure hyperglyceridemia (ICD-10) Hypertension ?I10 - Essential (primary) hypertension (ICD-10) Diabetic neuropathy ?E11.40 - Type 2 diabetes mellitus with diabetic neuropathy, unspecified (ICD-10) Surgical History H/O basal cell carcinoma excision ?Z98.890 - Other specified postprocedural states (ICD-10) ?Z85.828 - Personal history of other malignant neoplasm of skin (ICD-10) History of ovarian cystectomy (1997) ?Z98.890 - Other specified postprocedural states (ICD-10) ?Z87.42 - Personal history of other diseases of the female genital tract (ICD-10) History of neck surgery (1997) ?Z98.890 - Other specified postprocedural states (ICD-10) History of lumpectomy (2003) ?Z98.890 - Other specified postprocedural states (ICD-10) History of hysterectomy (2004) ?Z90.710 - Acquired absence of both cervix and uterus (ICD-10) Family History Sister Breast cancer, Onset Age: 32 Mother Type 2 diabetes mellitus Brother Type 2 diabetes mellitus Maternal Grandmother Pacemaker Other Prostate cancer Social History Narrative: Does not drink alcohol walks 1-2/ 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 , 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[employer], 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, lives in [place] Non-smoker What is your current living situation?: I presently have a place to live Problems where you live: no known problems In the past 12 months, utilities in danger of being shut off: no In past 12 months, lack of transportation kept you from medical appts, meetings, work, or getting things needed for daily living: no In the past 12 mos, have been you worried that your food would run out before you had money to buy more?: never true In the past 12 mos, the food you bought just didn't last and you didn't have money to buy more?: never true Smoking Status: Never smoker Do you use any of these nicotine containing products: None How often do you have a drink containing alcohol: monthly or less How often do you have six or more drinks on one occasion: Never AUDIT-C Alcohol total score: 1 Non-prescribed substance use: denies use How often does anyone, including family, friends and others, physically hurt you: never How often does anyone, including family, friends and others, insult or talk down to you: never How often does anyone, including family, friends and others, threaten you with harm: never How often does anyone, including family, friends and others, scream or curse at you: never Exam Narrative: Exam Narrative: Const: Well-nourished, Well-developed, in mild distress Eyes: PERRL, no conjunctival injection, and symmetrical lids HENT: Atraumatic external nose and ears. Moist mucous membranes. Neck: Symmetric, trachea midline, No thyromegaly. CVS: RRR, No murmurs or gallops. Peripheral pulses 2+ and equal in all extremities RESP: Unlabored respiratory effort. Clear to auscultation bilaterally. GI: Nontender/Nondistended, No rebound or guarding. MSK:Extremities w/o deformity, Normal Active ROM Skin: Warm, Dry. No rashes or lesions. Neuro: Normal Muscle tone, No focal neurological deficits. Psych: Awake, Alert, & Oriented x3. Appropriate mood and affect. Const: Vital Signs, click to edit/add: Vital Signs - 24 hr 04/02/25 20:45 04/02/25 22:30 Temperature 98.1 F 98.6 F Pulse Rate [Left P ulse Oximeter] 93 83 Respiratory Rate 16 18 Blood Pressure [Ri ght Upper Arm] 124/75 127/70 Pulse Oximetry 97 96 Oxygen Delivery Me thod Room Air Room Air Course Vital Signs Vital signs: Initial Vital Signs Temperature 98.1 F 04/02/25 20:45 Temperature Source Temporal Artery Scan 04/02/25 20:45 Pulse Rate 93 04/02/25 20:45 Respiratory Rate 16 04/02/25 20:45 Blood Pressure 124/75 04/02/25 20:45 Blood Pressure Mean 91 04/02/25 20:45 Blood Pressure Position Sitting 04/02/25 20:45 Pulse Oximetry 97 04/02/25 20:45 Oxygen Delivery Method Room Air 04/02/25 20:45 Vital Signs Temperature 98.1 F 04/02/25 20:45 Pulse Rate 93 04/02/25 20:45 Respiratory Rate 16 04/02/25 20:45 Blood Pressure 124/75 04/02/25 20:45 Pulse Oximetry 97 04/02/25 20:45 Oxygen Delivery Method Room Air 04/02/25 20:45 Temperature 98.6 F 04/02/25 22:30 Pulse Rate 83 04/02/25 22:30 Respiratory Rate 18 04/02/25 22:30 Blood Pressure 127/70 04/02/25 22:30 Pulse Oximetry 96 04/02/25 22:30 Oxygen Delivery Method Room Air 04/02/25 22:30 Medications Administered Medications: Discontinued Medications Generic Name Dose Route Start Last Admin Trade Name Sheldon PRN Reason Stop Dose Admin Cephalexin HCl 500 mg 04/02/25 22:56 04/02/25 23:05 Cephalexin 500 Mg Capsule PO 04/02/25 22:57 500 mg ONCE ONE Administration Lactated Ringer's 1,000 mls @ 1,000 mls/hr 04/02/25 22:06 04/02/25 23:29 Lactated Ringers 1000 Ml IV 04/02/25 23:05 Infused .Q1H ONE Infusion MDM - Abdominal Pain MDM Narrative Medical decision making narrative: Patient is a 59-year-old female presenting to emergency department for epigastric pain. Differential this time includes gastroenteritis, pancreatitis, gallbladder liver disease. She is having bowel movements and small bowel obstruction seems less likely. Will order CBC, CMP, lipase, magnesium. Also order urinalysis to look for signs of UTI. Will hold off on doing imaging until lab work returns as I do not believe imaging would ion exchange operator at this time. Urinalysis shows signs of. She does elevated white count. This is likely secondary to the UTI. Did initially have 5 pulse of 93 so does meet SIRS criteria. Source is likely the UTI. Lactate and blood cultures ordered CMP returned showing a sodium of 131, which is around her baseline. Also has elevated BUN and creatinine. Patient states she has had decreased p.o. intake and has not been drinking much water. This is likely due to dehydration. Lipase is slightly elevated at 435. Does not elevated enough to be considered pancreatitis. Also her symptoms do not seem to be consistent with pancreatitis. I spoke to her about admission for her elevated kidney function. Explained that typical recommendations are to admit expression considering the creatinine and almost doubled. She does overall look otherwise healthy and she would like to try IV fluids along with oral fluids and be discharged home with close follow-up. She will try drinking fluids here in the emergency department cm she can drink much. I will also give her a L of fluids. After this she is not feeling like she will be able to drink enough water at home. Lactate within normal limits. She will be admitted to the hospitalist service. Lab Data Labs: Lab Results 04/02/25 04/02/25 04/02/25 Range/Units 20:54 21:18 23:20 WBC 13.41 H (4.50-11.00) K/uL RBC 3.63 L (4.00-5.20) m/uL Hgb 11.0 L (12.0-16.0) gm/dL Hct 30.4 L (33.0-51.0) % MCV 84 (80-100) fL MCH 30 (26-34) pg MCHC 36 (32-36) gm/dL RDW Coeff of Shirley 14.6 (11.5-15.5) % Plt Count 350 (140-440) K/uL Neut % (Auto) 79.1 H (42.0-72.0) % Lymph % (Auto) 13.9 L (20-44) % [place] % (Auto) 4.9 (0.0-11.0) % Eos % (Auto) 1.6 (0.0-7.0) % Baso % (Auto) 0.1 (0.0-3.0) % Neut # (Auto) 10.60 H (1.7-7.0) K/uL Lymph # (Auto) 1.90 (0.90-2.90) K/uL [place] # (Auto) 0.70 (0.00-0.90) K/UL Eos # (Auto) 0.20 (0.00-0.50) K/uL Baso # (Auto) 0.00 (0.00-0.30) K/uL Abs Immat Gran (auto) 0.10 (0.00-0.30) K/uL Imm/Tot Granulo (auto) 0.4 % Sodium 131 L (135-149) mmol/L Potassium 4.4 (3.6-5.1) mmol/L Chloride 98 (96-114) mmol/L Carbon Dioxide 19 L (20-32) mmol/L Anion Gap 14 (7-15) mEq/L BUN 78 H (7-30) mg/dL Creatinine 1.7 H (0.5-1.5) mg/dL Estimated Creat Clear 32.46 Estimated GFR 35 ml/min Glucose 218 H (60-115) mg/dL Lactate 1.4 (0.5-1.9) mmol/L Calcium 9.6 (8.4-10.6) mg/dL Magnesium 2.6 (1.5-2.6) mg/dL Total Bilirubin 1.1 (0.1-1.5) mg/dL AST 24 (12-35) U/L ALT 12 (4-35) U/L Alkaline Phosphatase 74 (40-150) U/L Total Protein 8.6 H (6.0-8.3) g/dL Albumin 4.5 (3.3-5.0) g/dL Lipase 435 H (23-300) U/L Urine Color Yellow (Yellow) Urine Appearance Cloudy A (Clear) Urine pH 5.5 (5.0-8.5) Ur Specific [place] 1.025 (1.000-1.030) Urine Protein 3+ A (Negative) Urine Glucose (UA) Trace A (Negative) Urine Ketones Negative (Negative) Urine Blood 3+ A (Negative) Urine Nitrite Negative (Negative) Urine Bilirubin Negative (Negative) Urine Urobilinogen 0.2 (0.2-1.0) Ur Leukocyte Esterase 1+ A (Negative) Urine RBC 2-5 A (0-2) Urine WBC 50-100 A (0-5) Ur Squamous Epith Cells Few (None-Few) Urine Bacteria Moderate A (None) Discharge Plan Discharge Clinical Impression: COVID, SUMAN (acute kidney injury) Patient Disposition: Admitted As Inpatient Condition: Stable
--- OUTSIDE RECORDS SUMMARY | 2025-04-02 21:22 | XMS_ITS | Encounter Summary ---
Author Organization [facility] Address [address] [place] [address] Care Team Providers Care Agate Setter Name Role Phone Daisy Radford PA-C Primary Care Pr ovider Daisy Radford PA-C Unavailable Daisy Radford PA-C Unavailable Encounter Details Date Type Department Care Team (Late st Contact Info) Description 04/05/2018 My[facility] Medical Advice [address] [address] Praveena Juares APRN GUIDE TRAVEL [address] [place] [address] [address] [place], [place] [address] Social History Tobacco Use Types Packs/Day Years Used Date Smoking Tobacco: Never Smokeless Tobacco: Never Comments:NA Alcohol Use Standard Drinks/Week Comments No 0 (1 standard drink = 0.6 oz pur e alcohol) occasionally Comments No Sex and Gender Information Value Date Recorded Sex Assigned at Female 07/06/2018 4:08 PM COLLATERAL ANALYST Legal Sex Female 4:44 AM COLLATERAL ANALYST Gender Identity Female 07/06/2018 4:08 PM COLLATERAL ANALYST Sexual Orientation Straight 07/06/2018 4: 08 PM COLLATERAL ANALYST Occupation Industry Job Start Date Job End Date Not on file Not on file Not on file Not on file documented as of this encounter Plan of Treatment Not on file documented as of this encounter Visit Diagnoses Not on filedocumented in this encounter Care Teams Agate Setter Relationship Specialty Start Date End Date Daisy Radford PA-C [address] [place] [address] PCP - General Physician Medical Assistant Float 12/19/13 Daisy Radford PA-C [address] [place] [address] PCP - Assigned PCP 12/24/13 08/30/18 Daisy Radford PA-C [address] [place] [address] Assigned PCP 12/24/13 05/15/22 documented as of this encounter
--- OUTSIDE RECORDS SUMMARY | 2025-04-02 21:22 | XMS_ITS | Encounter Summary ---
Author Organization [facility] Address [address] [place] [address] Care Team Providers Care Set Up Technician Name Role Phone Daisy Radford PA-C Primary Care Pr ovider Daisy Radford PA-C Unavailable Encounter Details Date Type Department Care Team (Late st Contact Info) Description 04/26/2019 MyC Medical Advice [address] [address] Praveena Juares APRN CONCRETE INSPECTOR [address] [place] [address] [address] [place] [address] Social History Tobacco Use Types Packs/Day Years Used Date Smoking Tobacco: Never Smokeless Tobacco: Never Comments:NA Alcohol Use Standard Drinks/Week Comments No 0 (1 standard drink = 0.6 oz pur e alcohol) occasionally PHQ-2 Answer Date Recorded PHQ-2 Score 0 10/24/2018 Comments No Sex and Gender Information Value Date Recorded Sex Assigned at Female 07/06/2018 4:08 PM LAUNDRY ROOM ATTENDANT Legal Sex Female 4:44 AM LAUNDRY ROOM ATTENDANT Gender Identity Female 07/06/2018 4:08 PM LAUNDRY ROOM ATTENDANT Sexual Orientation Straight 07/06/2018 4: 08 PM LAUNDRY ROOM ATTENDANT Occupation Industry Job Start Date Job End Date Not on file Not on file Not on file Not on file documented as of this encounter Plan of Treatment Not on file documented as of this encounter Visit Diagnoses Not on filedocumented in this encounter Care Teams Set Up Technician Relationship Specialty Start Date End Date Daisy Radford PA-C [address] [place] [address] PCP - General Physician Claims Administrator 12/19/13 Daisy Radford PA-C [address] [place] [address] Assigned PCP 12/24/13 05/15/22 documented as of this encounter
--- OUTSIDE RECORDS SUMMARY | 2025-04-02 21:22 | XMS_ITS | Encounter Summary ---
Author Organization [facility] Address [address] [place] [address] Care Team Providers Care Slot Service Specialist Name Role Phone Diogo Kirk MD Primary Care Provider Daisy Radford PA-C Primary Care Pr ovider Sherry Gutierrez RN Unavailable Daisy Radford PA-C Unavailable Daisy Radford PA-C Unavailable Encounter Details Date Type Department Care Team (Late st Contact Info) Description 02/28/2010 Office Visit-[facility] [address] [phone] Antonio Caceres MD Social History Tobacco Use Types Packs/Day Years Used Date Smoking Tobacco: Never Alcohol Use Standard Drinks/Week Comments Yes 0 (1 standard drink = 0.6 oz pur e alcohol) occasional Comments No Sex and Gender Information Value Date Recorded Sex Assigned at Female 07/06/2018 4:08 PM PRODUCTION ADMINISTRATOR Legal Sex Female 4:44 AM PRODUCTION ADMINISTRATOR Gender Identity Female 07/06/2018 4:08 PM PRODUCTION ADMINISTRATOR Sexual Orientation Straight 07/06/2018 4: 08 PM PRODUCTION ADMINISTRATOR Occupation Industry Job Start Date Job End Date Not on file Not on file Not on file Not on file documented as of this encounter Progress Notes * Antonio Caceres MD - 03/04/2010 2:03 PM CDT Progress Note Created by: Antonio Caceres M.D. DATE: 02/28/2010 BEATRIZ CHAUHAN DATE OF : 1965 AGE: [id number] years old Referring Physician: DIOGO KIRK Referring Clinic: [facility] CURRENT DIAGNOSES 1. - Hyperlipidemia mixed, 272.2 [...] PRESENT ILLNESS Thank you for sending Beatriz Whitlockgner to the office today. 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 Actually [...] October 2010 that was run by the [facility]) and it does two major things: First, [...] Past Medical Illnesses: pancreatitis Apr 2006, diabetes rhnpssvm-bkl-hbbzxkj dependent Surgeries/Procedures - General: hysterectomy-subtotal Jun 2005, [...] Seat Belt Use - always; Occupation - [employer]; Residence - lives with and lives in [place] year round; Place of - [place]; Hours Worked - 40 hours per week; [...] does not really need to see a loss prevention lead. She may be interested in another jokeor [...] on filedocumented in this encounter Care Teams Slot Service Specialist Relationship Specialty Start Date End Date Diogo Kirk MD PCP - General 07/02/06 12/18/13 Daisy Radford PA-C [address] [place] [address] PCP - General Physician Film Editor 12/19/13 Daisy Radford PA-C [address] [place] [address] PCP - Assigned PCP 12/24/13 08/30/18 Sherry Gutierrez RN Clinic Supervisor Powder And Primer Canning Primary Care - CC 10/11/1709/26 Daisy Radford PA-C [address] [place] [address] Assigned PCP 12/24/13 05/15/22 documented as of this encounter
--- OUTSIDE RECORDS SUMMARY | 2025-04-02 21:22 | XMS_ITS | Encounter Summary ---
Author Organization [facility] Address [address] [place] [address]. [place] [address] Care Team Providers Care Stull Hewer Name Role Phone Daisy Radford PA-C Primary Care Pr ovider Daisy Radford PA-C Unavailable Reason for Visit * Reason Onset Date Comments Forms 10/27/2019 Encounter Details Date Type Department Care Team (Late st Contact Info) Description 10/27/2019 My[facility] Medical Advice [address] [phone] Daisy Radford PA-C [address] [place] [address] Forms Social History Tobacco Use Types Packs/Day Years Used Date Smoking Tobacco: Never Smokeless Tobacco: Never Comments:NA Alcohol Use Standard Drinks/Week Comments No 0 (1 standard drink = 0.6 oz pur e alcohol) occasionally PHQ-2 Answer Date Recorded PHQ-2 Score 0 10/24/2018 Comments No Sex and Gender Information Value Date Recorded Sex Assigned at Female 07/06/2018 4:08 PM CASH MANAGEMENT OFFICER Legal Sex Female 4:44 AM CASH MANAGEMENT OFFICER Gender Identity Female 07/06/2018 4:08 PM CASH MANAGEMENT OFFICER Sexual Orientation Straight 07/06/2018 4: 08 PM CASH MANAGEMENT OFFICER Occupation Industry Job Start Date Job End Date Not on file Not on file Not on file Not on file documented as of this encounter Plan of Treatment Not on file documented as of this encounter Visit Diagnoses Not on filedocumented in this encounter Care Teams Stull Hewer Relationship Specialty Start Date End Date Daisy Radford PA-C [address] [address] [place], [place] [id number] PCP - General Physician Silverlight Developer 12/19/13 Daisy Radford PA-C [address] [place] [address] Assigned PCP 12/24/13 05/15/22 documented as of this encounter
--- OUTSIDE RECORDS SUMMARY | 2025-04-02 21:22 | XMS_ITS | Encounter Summary ---
Author Organization [facility] Address [address] [place] [address]. [place] [address] Care Team Providers Care Traveling Buyer Name Role Phone Daisy Radford PA-C Primary Care Pr ovider Daisy Radford PA-C Unavailable Daisy Radford PA-C Unavailable Reason for Visit * Reason Onset Date Comments Refill Request 08/19/2018 hydrochlorothiaz srikanth 12.5 MG TABS tablet Refill Request 08/19/2018 glimepiride (AMA RYL) 2 MG tablet Encounter Details Date Type Department Care Team (Late st Contact Info) Description [facility] [address] [place] [address] Daisy Radford PA-C [address] [place] [address] Refill Request (hydrochlorothiazide 12.5 MG TABS tablet); Refill Request (glimepiride (AMARYL) 2 MG tablet) Social History Tobacco Use Types Packs/Day Years Used Date Smoking Tobacco: Never Smokeless Tobacco: Never Comments:NA Alcohol Use Standard Drinks/Week Comments No 0 (1 standard drink = 0.6 oz pur e alcohol) occasionally PHQ-2 Answer Date Recorded PHQ-2 Score 0 07/05/2018 Comments No Sex and Gender Information Value Date Recorded Sex Assigned at Female 07/06/2018 4:08 PM PRESSURE CONTROLLER Legal Sex Female 4:44 AM PRESSURE CONTROLLER Gender Identity Female 07/06/2018 4:08 PM PRESSURE CONTROLLER Sexual Orientation Straight 07/06/2018 4: 08 PM PRESSURE CONTROLLER Occupation Industry Job Start Date Job End Date Not on file Not on file Not on file Not on file documented as of this encounter Miscellaneous Notes * Telephone Encounter - Praveena Juares RN - 08/19/2018 11:12 AM CST Routing refill request to provider for review/approval because: Labs out of range: BP Labs not current: NA Jennifer sent to patient requesting appt. Pt was due in April Pended for 30 days Praveena Juares RN, BSN SURE CONTROLLER * Telephone Encounter - Leonard Nadeem - 08/19/2018 10:51 AM CST Requested Prescriptions [...] 12 months Recent Labs Lab Test 07/18/18901 CR 0.62 Passed - Normal serum potassium [...] past 12 mos. Recent Labs Lab Test 07/18/18901 LDL Cannot estimate LDL when triglyceride exceeds [...] the past 12 mos. Nadeem Valle XRT SURE CONTROLLER documented in this encounter Plan of Treatment Not on file documented as of this encounter Visit Diagnoses Diagnosis Essential hypertension with goal blood pressure less than 140/90 Type 2 diabetes mellitus without complication, with long-term current use of insulin (H) documented in this encounter Care Teams Traveling Buyer Relationship Specialty Start Date End Date Daisy Radford PA-C [address] [place] [address] PCP - General Physician Day Habilitation Specialist 12/19/13 Daisy Radford PA-C [address] [place] [address] PCP - Assigned PCP 12/24/13 08/30/18 Daisy Radford PA-C [address] [place] [address] Assigned PCP 12/24/13 05/15/22 documented as of this encounter
--- OUTSIDE RECORDS SUMMARY | 2025-04-02 21:22 | XMS_ITS | Clinical Summary ---
Author Organization [facility] Address [address] [place] [address] Phone [email or web address] Care Team Providers Care Diesel Pile Driver Operator Name Role Phone Unavailable Primary Care Provider Unavailabl e Immunizations Immunization Administration Dates Next Due Influenza (Flucelvax) MDCK, PF, quad (CVX-171) 1 Influenza multi-dose VIAL (A fluria,Fluzone) trivalent (CVX-141) 04/17/2015 Influenza single-dose SYRING E (Afluria, Fluarix, Fluzone, Flulaval) trivalent (CVX-140) 04/01/2016 Influenza, (Afluria Fluarix Flulaval Fluzone) quad, PF [...] Dealing with Stress Not on file 08/08/2020 Comments Unknown Sex and Gender Information Value Date Recorded Sex Assigned at Not on file Legal Sex Female 7:42 AM CDT Gender Identity Not on file Sexual Orientation Not on file Plan of Treatment Health Maintenance Due Date Last Done Comments CT Colonography 1965 Cervical Cancer Screening Combo 1965 Colonoscopy 1965 Colorectal Cancer Screening Combo 1965 DNA Cologuard 1965 FIT or FOBT Test 1965 HPV / Cotest 1966 Pap Testing 1965 Sigmoidoscopy 1965 Hepatitis B Immunization (1 of 3 - 19+ 3-dose series) 1985 Pneumococcal: 50+ Years (2 of 2 - PCV) 2016 05/07/2015 Zoster Immunization (1 of 2) 2016 Tetanus Diphtheria and Pertussis Immunization (2 - Td or Tdap) 07/19/2017 07/19/2007 Breast Cancer Screening 09/05/2020 09/05/2018 Covid-19 Immunization ( - season) 2025 Influenza Immunization (#1) 02/26/202502/27, 03/29/2018, 04/13/2017, Additional history exists Pneumococcal Immunization Discontinued 05/07/2015 HIB Immunization Aged Out No longer e [...]
--- OUTSIDE RECORDS SUMMARY | 2025-04-02 21:22 | XMS_ITS | Encounter Summary ---
Author Organization [facility] Address [address] [place] [address] Care Team Providers Care Science Job Titles Name Role Phone Jaden Barrett MD Primary Care Provider Daisy Radford PA-C Primary Care Pr ovider Sherry Gutierrez RN Unavailable [phone] Daisy Radford PA-C Unavailable Daisy Radford PA-C Unavailable Encounter Details Date Type Department Care Team (Late st Contact Info) Description 05/20/2011 [facility] [address] [address] [facility] Social History Tobacco Use Types Packs/Day Years Used Date Smoking Tobacco: Never Smokeless Tobacco: Never Alcohol Use Standard Drinks/Week Comments Yes 0 (1 standard drink = 0.6 oz pur e alcohol) occasionally Comments No Sex and Gender Information Value Date Recorded Sex Assigned at Female 07/06/2018 4:08 PM DRAWING OPERATOR Legal Sex Female 4:44 AM DRAWING OPERATOR Gender Identity Female 07/06/2018 4:08 PM DRAWING OPERATOR Sexual Orientation Straight 07/06/2018 4: 08 PM DRAWING OPERATOR Occupation Industry Job Start Date Job End Date Not on file Not on file Not on file Not on file documented as of this encounter Plan of Treatment Not on file documented as of this encounter Visit Diagnoses Not on filedocumented in this encounter Care Teams Science Job Titles Relationship Specialty Start Date End Date Jaden Barrett MD PCP - General 07/02/06 12/18/13 Daisy Radford PA-C [address] [place] [address] PCP - General Physician Spiral Spring Winder 12/19/13 Daisy Radford PA-C [address] [place] [address] PCP - Assigned PCP 12/24/13 08/30/18 Sherry Gutierrez, [facility] Clinic Stereoptician Primary Care - CC 10/11/1709/26 Daisy Radford PA-C [address] [place] [address] Assigned PCP 12/24/13 05/15/22 documented as of this encounter
--- OUTSIDE RECORDS SUMMARY | 2025-04-02 21:22 | XMS_ITS | Encounter Summary ---
Author Organization [facility] Address [address] [place] [address] Care Team Providers Care Waiter/Waitress Bar Name Role Phone Daisy Radford PA-C Primary Care Pr ovider Daisy Radford PA-C Unavailable Daisy Radford PA-C Unavailable Encounter Details Date Type Department Care Team (Late st Contact Info) Description 11/18/2017 MyC Medical Advice [facility] [id number] [place] [address] Daisy Radford PA-C [id number] [place] [address] Social History Tobacco Use Types Packs/Day Years Used Date Smoking Tobacco: Never Smokeless Tobacco: Never Comments:NA Alcohol Use Standard Drinks/Week Comments No 0 (1 standard drink = 0.6 oz pur e alcohol) occasionally Comments No Sex and Gender Information Value Date Recorded Sex Assigned at Female 07/06/2018 4:08 PM CONSERVATION AGENT Legal Sex Female 4:44 AM CONSERVATION AGENT Gender Identity Female 07/06/2018 4:08 PM CONSERVATION AGENT Sexual Orientation Straight 07/06/2018 4: 08 PM CONSERVATION AGENT Occupation Industry Job Start Date Job End [...] on filedocumented in this encounter Care Teams Waiter/Waitress Bar Relationship Specialty Start Date End Date Daisy Radford PA-C [address] [place] [address] PCP - General Physician Recruiter Manager 12/19/13 Daisy Radford PA-C [address] [place] [address] PCP - Assigned PCP 12/24/13 08/30/18 Daisy Radford PA-C [address] [place] [address] Assigned PCP 12/24/13 05/15/22 documented as of this encounter
--- OUTSIDE RECORDS SUMMARY | 2025-04-02 21:22 | XMS_ITS | Encounter Summary ---
Author Organization [facility] Address [address] [place] [address] Care Team Providers Care Scrap Collector Name Role Phone Jaden Barrett MD Primary Care Provider Daisy Radford PA-C Primary Care Pr ovider Sherry Gutierrez RN Unavailable Daisy Radford PA-C Unavailable Daisy Radford PA-C Unavailable Encounter Details Date Type Department Care Team (Late st Contact Info) Description 08/12/2010 [facility] [address] [address] [facility] Social History Tobacco Use Types Packs/Day Years Used Date Smoking Tobacco: Never Alcohol Use Standard Drinks/Week Comments Yes 0 (1 standard drink = 0.6 oz pur e alcohol) occasional Comments No Sex and Gender Information Value Date Recorded Sex Assigned at Female 07/06/2018 4:08 PM CONFECTIONERY MAKER Legal Sex Female 4:44 AM CONFECTIONERY MAKER Gender Identity Female 07/06/2018 4:08 PM CONFECTIONERY MAKER Sexual Orientation Straight 07/06/2018 4: 08 PM CONFECTIONERY MAKER Occupation Industry Job Start Date Job End Date Not on file Not on file Not on file Not on file documented as of this encounter Plan of Treatment Not on file documented as of this encounter Visit Diagnoses Not on filedocumented in this encounter Care Teams Scrap Collector Relationship Specialty Start Date End Date aJden Barrett MD PCP - General 07/02/06 12/18/13 Daisy Radford PA-C [address] [place] [address] PCP - General Physician Bottom Filler 12/19/13 Daisy Radford PA-C [address] [place] [address] PCP - Assigned PCP 12/24/13 08/30/18 Sherry Gutierrez RN Clinic Cook Fishing Vessel Primary Care - CC 10/11/1709/26 Daisy Radford PA-C [address] [place] [address] Assigned PCP 12/24/13 05/15/22 documented as of this encounter
--- OUTSIDE RECORDS SUMMARY | 2025-04-02 21:22 | XMS_ITS | Clinical Summary ---
Author Organization [facility] Address [address] [place] [address] Care Team Providers Care Spout Worker Name Role Phone Cathleen Hebert MD Primary Care Provider + Allergies No known active allergies Medications metFORMIN (GLUCOPHAGE) 1,000 mg tablet Take 1 tablet by mouth 2 times daily with meals. Patient does not know the dose 0 12/14/19 17 Active aspirin (ECOTRIN) 81 mg enteric coated tablet Take 1 tablet by mouth once daily with a meal. 0 12/14/19 17 Active fenofibrate nanocrystallized (TRICOR) 145 mg tablet Take 1 tablet by mouth once daily with a meal. 0 12/14/19 17 Active lisinopril (PRINIVIL; ZESTRIL) 20 mg tablet Take 1 tablet by mouth. 0 12/14/19 17 Active carvedilol (COREG) 3.125 mg tablet Take 1 tablet by mouth 2 times daily with meals. 0 12/14/19 17 Active pravastatin (PRAVACHOL) 40 mg tablet Take 1 tablet by mouth at bedtime. 0 12/14/19 17 Active jhhtu-4s-nvj-epa-fi sh oil (OMEGA-3 FISH OIL) 300-1,000 mg cap Take by mouth. 0 12/14/19 17 Active HYDROcodone-acetami nophen, 5-325 mg, (NORCO) per tabletIndications:F all, initial encounter,Hip injury, left, initial encounter,Elbow injury, left, initial encounter Take 1 tablet by mouth every 4 hours if needed for Pain Max acetaminophen dose: 4000mg in 24 hrs. 30 tablet 06/18/20 17 Active cyclobenzaprine (FLEXERIL) 10 mg tabletIndications:F all, initial encounter,Hip injury, left, initial encounter,Elbow injury, left, initial encounter Take 1 tablet by mouth every 8 hours if needed for Muscle Spasm. 30 tablet 12/14/19 17 Active Active Problems No known active problems Family History Medical History Relation Name Comments Cancer-breast Sister Cancer-ovarian No Family History Relation Name Status Comments Sister Social History Tobacco Use Types Packs/Day Years Used Date Smoking Tobacco: Never Smokeless Tobacco: Never Comments No Sex and Gender Information Value Date Recorded Sex Assigned at Not on file Legal Sex Female 5:58 AM CHIEF RELAY TESTER Gender Identity Not on file Sexual Orientation Not on file Obstetrics History Last Filed Vital Signs Vital Sign Reading Time Taken Comments Blood Pressure 134/70 12/13/2016 3:02 PM CDT Pulse 104 12/13/2016 3:02 PM CDT Temperature 36.9 C (98.4 F) 12/13/2016 3:02 PM CDT Respiratory Rate 12 12/13/2016 3:02 PM CDT Oxygen Saturation 97% 12/13/2016 3:02 PM CDT Inhaled Oxygen Concentration - - Weight 83.8 kg (184 lb 12.8 oz) 12/13/2016 3:02 PM CDT Height 165.1 cm (5' 5) 12/13/2016 3:02 PM CDT Body Mass Index 30.75 12/13/2016 3:02 PM CDT Plan of Treatment Health Maintenance Due Date Last Done Comments Tetanus booster 1977 Depression screening for age 12+ 1978 HIV for age 15-65 1981 Hepatitis C screening for ag e 18-79 1984 Hepatitis B series for 19+ ( 1 of 3 - 19+ 3-dose series) 1985 Pap test for age 21-65 04/22/2007 04/22/2004 Colonoscopy through age 75 11/07/2011 Lipids for age 45-75 11/07/2011 02/23/2005 Pneumococcal series for age 50+ (1 of 1 - PCV) 2016 Zoster (shingles) series for age 50+ (1 of 2) 2016 BMI (ht and wt on same day) for age 18+ 12/13/2017 12/13/2016 COVID-19 vaccine series ( season) 2025 07/25/2021, 10/05/2020, 09/14/2020 Influenza Vaccine (#1) 2025 Mammogram for age 45-75 08/03/2025 08/03/19, 05/13/2022, 02/13/2021, Additional history exists RSV vaccine for adults or (1 - 1-dose 75+ series) 2041 Procedures Procedure Name Priority Date/Time Associated Diagnosis Comments XR MAMMO LORI BILAT SCREEN Routine 08/03/2024 1:49 PM CHIEF RELAY TESTER Encounter for screening mammogram for malignant neoplasm of breast Personal history of malignant neoplasm of breast LIPID PANEL Timed 02/23/2005 10:49 AM CDT GYNECOLOGICAL PANEL Timed 04/22/2004 5 :45 PM CDT from Last 3 Months or Most Recently Relevant to Health Maintenance Results * XR MAMMO LORI BILAT SCREEN (08/03/2024 1:49 PM CHIEF RELAY TESTER) Anatomical Region Laterality Modality BREASTS, Breast Left, Breast Right Bilateral Mammography Impressions 08/04/2024 11:14 AM CHIEF RELAY TESTER There is no radiographic evidence for malignancy. Recommend annual mammograms. MAMMOGRAM ASSESSMENT: ACR 2 Benign PATIENTS: You will also receive a letter with your examination results in an easy to read format. If you have questions about your results, please contact your referring provider. Narrative 08/04/2024 11:14 AM CHIEF RELAY TESTER For Patients: As a result of the Century Cures Act, medical imaging exams and procedure reports are released immediately into your electronic medical record. You may view this report before your referring provider. If you have questions, please contact your health care provider. XR MAMMO LORI BILAT SCREEN [[id number]] CLINICAL HISTORY: This is an asymptomatic 58 y.o. patient. INDICATION FOR EXAM: Mammogram Screening. TECHNIQUE: CC & MLO views were obtained. This study was evaluated with the assistance of Computer-Aided Detection. Breast Tomosynthesis was used in interpretation. COMPARISON FILMS: Yes 05/13/22 [email or web address] 02/13/21 [facility] FINDINGS: There are scattered areas of fibroglandular density. No suspicious masses or microcalcifications. There are post treatment changes of left breast. Cathleen Hebert MD MAMMO Final Re sult * (ABNORMAL) LIPID PANEL (02/23/2005 10:49 AM CDT) CHOLESTEROL,TOTAL 137 110 - 199 mg/dL [facility] TRIGLYCERIDES 556(H) 40 - 149 mg/dL [facility] HDL CHOLESTEROL 25(L) >40 mg/dL [facility] CHOL/HDL RATIO 5.48(H) <4.51 [facility] LDL CHOLESTEROL Invalid LDL when Trig >400. [facility] PATIENT STATUS Fasting [facility] 02/23/2005 10:4 9 AM CDT 02/23/2005 5:21 PM CDT Dion Rand NP CHEMISTRY Final Result [facility] INTERNAL ZIP [id number] [place] [address] * GYNECOLOGICAL PANEL (04/22/2004 5:45 PM CDT) Pathologist [facility] CYTOLOGY CYTOPATHOLOGY REPORT [facility] [address] [place] [address] Status: Final Report [id number] CLINICAL INFORMATION Reason for Visit : Routine LMP : 03-25-04 Previous PAP Test : Yes Previous PAP Date : 2001 Previous PAP Dx : NEGATIVE Previous Colposcopy/Bx: Not specified Hormone Usage : Not given Additional Data : Not given HPV Request : Reflex HPV test if PAP Dx ASCUS SPECIMEN SOURCE : Cervical/vaginal thin, screening SPECIMEN ADEQUACY : Satisfactory for evaluation Endocervical component present. INTERPRETATION/RE SULT: Negative for intraepithelial lesion or malignancy. Cytology 1st Screener : maddie Signed by: maddie Interinstitution al comparison of correlations between cervicovaginal smears and biopsies demonstrate an overall false-negative rate of 8% for Pap smears. Consideration should be given to performing a biopsy on any suspicious lesion regardless of the Pap test result. COLLECTED: 04/22/04 ACCESSIONED: 04/23/04 SIGNED: 04/24/04 [facility] 04/22/2004 5:45 PM CDT 04/23/2004 11:51 AM CDT us Dion Rand NP PATHOLOGY/CYTOLOGY Final Resul t [facility] INTERNAL ZIP [address] [address] from Last 3 Months or Most Recently Relevant to Health Maintenance Insurance [facility] Member Subscriber Plan / Payer (Ef fective 2024-Present) Name:Beatriz Castillo Relation to Subscriber:Spouse Name:Arias Castillo Date of :1967 (Home) Address: [address] [place] [address] Payer ID:[id number] (NAIC) Group ID:[id number] Type:Not on file Address: [facility] [address] [place] [address] [facility] Care Teams Spout Worker Relationship Specialty Start Date End Date Cathleen Hebert MD [address] [place] [address] PCP - General Family Practice 02/12/21
--- OUTSIDE RECORDS SUMMARY | 2025-04-02 21:22 | XMS_ITS | Encounter Summary ---
Author Organization [facility] Address [address] [place] [address] Care Team Providers Care Adult Specialist Name Role Phone Daisy Radford PA-C Primary Care Pr ovider Daisy Radford PA-C Unavailable Encounter Details Date Type Department Care Team (Late st Contact Info) Description 05/01/2020 My[facility] Medical Advice [address] [address] Praveena Juares APRN SALESPERSON FLYING SQUAD [address] [place] [address] [address] [place] [address] Social History Tobacco Use Types Packs/Day Years Used Date Smoking Tobacco: Never Smokeless Tobacco: Never Comments:NA Alcohol Use Standard Drinks/Week Comments No 0 (1 standard drink = 0.6 oz pur e alcohol) occasionally PHQ-2 Answer Date Recorded PHQ-2 Score 0 10/24/2018 Comments No Sex and Gender Information Value Date Recorded Sex Assigned at Female 07/06/2018 4:08 PM TROUBLE TRACER Legal Sex Female 4:44 AM TROUBLE TRACER Gender Identity Female 07/06/2018 4:08 PM TROUBLE TRACER Sexual Orientation Straight 07/06/2018 4: 08 PM TROUBLE TRACER Occupation Industry Job Start Date Job End Date Not on file Not on file Not on file Not on file documented as of this encounter Plan of Treatment Not on file documented as of this encounter Visit Diagnoses Not on filedocumented in this encounter Care Teams Adult Specialist Relationship Specialty Start Date End Date Daisy Radford PA-C [address] [place] [address] PCP - General Physician Clinical Care Leader 12/19/13 Daisy Radford PA-C [address] [place] [address] Assigned PCP 12/24/13 05/15/22 documented as of this encounter
--- OUTSIDE RECORDS SUMMARY | 2025-04-02 21:22 | XMS_ITS | Encounter Summary ---
Author Organization [facility] Address [address] [place] [address] Care Team Providers Care Physician Gynecologist Name Role Phone Jaden Barrett MD Primary Care Provider Daisy Radford PA-C Primary Care Pr ovider Sherry Gutierrez RN Unavailable [phone] Daisy Radford PA-C Unavailable Daisy Radford PA-C Unavailable Encounter Details Date Type Department Care Team (Late st Contact Info) Description 10/19/2010 MyC Medical Advice [facility] [address] [place] [address] Jaden Barrett MD [address] [place] [address] Social History Tobacco Use Types Packs/Day Years Used Date Smoking Tobacco: Never Smokeless Tobacco: Never Alcohol Use Standard Drinks/Week Comments Yes 0 (1 standard drink = 0.6 oz pur e alcohol) occasionally Comments No Sex and Gender Information Value Date Recorded Sex Assigned at Female 07/06/2018 4:08 PM STUDENT OFFICER Legal Sex Female 4:44 AM STUDENT OFFICER Gender Identity Female 07/06/2018 4:08 PM STUDENT OFFICER Sexual Orientation Straight 07/06/2018 4: 08 PM STUDENT OFFICER Occupation Industry Job Start Date Job End Date Not on file Not on file Not on file Not on file documented as of this encounter Plan of Treatment Not on file documented as of this encounter Visit Diagnoses Not on filedocumented in this encounter Care Teams Physician Gynecologist Relationship Specialty Start Date End Date Jaden Barrett MD PCP - General 07/02/06 12/18/13 Daisy Radford PA-C [address] [place] [address] PCP - General Physician Siebel Crm Developer 12/19/13 Daisy Radford PA-C [address] [place] [address] PCP - Assigned PCP 12/24/13 08/30/18 Sherry Gutierrez RN Clinic Machine Tack Puller Primary Care - CC 10/11/1709/26 Daisy Radford PA-C [address] [place] [address] Assigned PCP 12/24/13 05/15/22 documented as of this encounter
--- OUTSIDE RECORDS SUMMARY | 2025-04-02 21:22 | XMS_ITS | Encounter Summary ---
Author Organization [facility] Address [address] [place] [address] Care Team Providers Care Electric Screw Driver Operator Name Role Phone Daisy Radford PA-C Primary Care Pr ovider Diasy Radford PA-C Unavailable Encounter Details Date Type Department Care Team (Late st Contact Info) Description 03/05/2020 MyC Medical Advice [address] [address] Praveena Juares APRN CLINICAL DOCUMENTATION NURSE [address] [place] [address] [address] [place], [place] [id number] Social History Tobacco Use Types Packs/Day Years Used Date Smoking Tobacco: Never Smokeless Tobacco: Never Comments:NA Alcohol Use Standard Drinks/Week Comments No 0 (1 standard drink = 0.6 oz pur e alcohol) occasionally PHQ-2 Answer Date Recorded PHQ-2 Score 0 10/24/2018 Comments No Sex and Gender Information Value Date Recorded Sex Assigned at Female 07/06/2018 4:08 PM PAPER GLUING OPERATOR Legal Sex Female 4:44 AM PAPER GLUING OPERATOR Gender Identity Female 07/06/2018 4:08 PM PAPER GLUING OPERATOR Sexual Orientation Straight 07/06/2018 4: 08 PM PAPER GLUING OPERATOR Occupation Industry Job Start Date Job End Date Not on file Not on file Not on file Not on file documented as of this encounter Plan of Treatment Not on file documented as of this encounter Visit Diagnoses Not on filedocumented in this encounter Care Teams Electric Screw Driver Operator Relationship Specialty Start Date End Date Daisy Radford PA-C [address] [place] [address] PCP - General Physician Ndt Inspector 12/19/13 Daisy Radford PA-C [address] [place] [address] Assigned PCP 12/24/13 05/15/22 documented as of this encounter
--- OUTSIDE RECORDS SUMMARY | 2025-04-02 21:22 | XMS_ITS | Encounter Summary ---
Author Organization [facility] Address [address] [place] [address] Care Team Providers Care Director Life Name Role Phone Daisy Radford PA-C Primary Care Pr ovider Daisy Radford PA-C Unavailable Encounter Details Date Type Department Care Team (Late st Contact Info) Description 11/07/2019 [facility] [address] [address] Maddie Lange RN Social History Tobacco Use Types Packs/Day Years Used Date Smoking Tobacco: Never Smokeless Tobacco: Never Comments:NA Alcohol Use Standard Drinks/Week Comments No 0 (1 standard drink = 0.6 oz pur e alcohol) occasionally PHQ-2 Answer Date Recorded PHQ-2 Score 0 10/24/2018 Comments No Sex and Gender Information Value Date Recorded Sex Assigned at Female 07/06/2018 4:08 PM LAST WAXER Legal Sex Female 4:44 AM LAST WAXER Gender Identity Female 07/06/2018 4:08 PM LAST WAXER Sexual Orientation Straight 07/06/2018 4: 08 PM LAST WAXER Occupation Industry Job Start Date Job End Date Not on file Not on file Not on file Not on file documented as of this encounter Plan of Treatment Not on file documented as of this encounter Visit Diagnoses Not on filedocumented in this encounter Care Teams Director Life Relationship Specialty Start Date End Date AasebDaisy Hare PA-C [address] [place] [address] PCP - General Physician Tong Setter 12/19/13 Daisy Radford PA-C [address] [place] [address] Assigned PCP 12/24/13 05/15/22 documented as of this encounter
--- OUTSIDE RECORDS SUMMARY | 2025-04-02 21:22 | XMS_ITS | Encounter Summary ---
Author Organization [facility] Address [address] [place] [address] Care Team Providers Care Bottom Stainer Name Role Phone Daisy Radford PA-C Primary Care Pr ovider Sherry Gutierrez RN Unavailable Daisy Radford PA-C Unavailable Daisy Radford PA-C Unavailable Encounter Details Date Type Department Care Team (Late st Contact Info) Description 04/02/2017 MyC Medical Advice [address] [address] Daisy Radford PA-C [address] [place] [address] Hypertriglyceridemia ; Hyperlipidemia LDL goal <100 Social History Tobacco Use Types Packs/Day Years Used Date Smoking Tobacco: Never Smokeless Tobacco: Never Comments:NA Alcohol Use Standard Drinks/Week Comments No 0 (1 standard drink = 0.6 oz pur e alcohol) occasionally Comments No Sex and Gender Information Value Date Recorded Sex Assigned at Female 07/06/2018 4:08 PM FLOATLIGHT LOADING SUPERVISOR Legal Sex Female 4:44 AM FLOATLIGHT LOADING SUPERVISOR Gender Identity Female 07/06/2018 4:08 PM FLOATLIGHT LOADING SUPERVISOR Sexual Orientation Straight 07/06/2018 4: 08 PM FLOATLIGHT LOADING SUPERVISOR Occupation Industry Job Start Date Job End Date Not on file Not on file Not on file Not on file documented as of this encounter Plan of Treatment Not on file documented as of this encounter Visit Diagnoses Diagnosis Hypertriglyceridemia Pure hyperglyceridemia Hyperlipidemia LDL goal <100 Other and unspecified hyperlipidemia documented in this encounter Care Teams Bottom Stainer Relationship Specialty Start Date End Date Daisy Radford [place]-C [address] [place] [address] PCP - General Physician Knocker Out 12/19/13 Daisy Radford PA-C [address] [place] [address] PCP - Assigned PCP 12/24/13 08/30/18 Sherry Gutierrez, [facility] Clinic Hr Systems Analyst Primary Care - CC 10/11/1709/26 Daisy Radford PA-C [address] [place] [address] Assigned PCP 12/24/13 05/15/22 documented as of this encounter
--- OUTSIDE RECORDS SUMMARY | 2025-04-02 21:22 | XMS_ITS | Clinical Summary ---
Author Organization [facility] Address [address] [place] [address] Care Team Providers Care Mine Motor Engineer Name Role Phone Daisy Radford PA-C Primary Care Pr ovider Allergies No known active allergies Medications ASPIRIN 81 MG OR TABSIndications:Ty pe II or unspecified type diabetes mellitus without mention of complication, not stated as uncontrolled ONE DAILY 100 3 7 Active Multiple Vitamin (MULTIVITAMINS PO) Take 1 tablet by mouth daily Active blood glucose monitoring (ONE TOUCH ULTRA) test stripIndications:T ype 2 diabetes mellitus without complication, without long-term current use of insulin (H) 1 strip by In Vitro route 4 times daily 100 strip 11 7 Active hydrochlorothiazid e (HYDRODIURIL) 12.5 MG tabletIndications: Essential hypertension with goal blood pressure less than 140/90 TAKE 1 TABLET BY MOUTH EVERY DAY 15 tablet 9 Active hydrochlorothiazid e (HYDRODIURIL) 12.5 MG tabletIndications: Essential hypertension with goal blood pressure less than 140/90 TAKE 1 TABLET BY MOUTH DAILY 15 tablet 9 Active glimepiride (AMARYL) 2 MG tabletIndications: Type 2 diabetes mellitus with other specified complication, with long-term current use of insulin (H) Take 1 tablet (2 mg) by mouth every morning (before breakfast) 90 tablet 1 9 Active insulin pen needle (SURE COMFORT PEN NEEDLES) 30G X 8 MM miscellaneousIndic ations:Type 2 diabetes mellitus with other specified complication, with long-term current use of insulin (H) USE ONCE DAILY 100 each 3 9 Active fenofibrate (TRICOR) 145 MG tabletIndications: Hypertriglyceridem ia,Hyperlipidemia LDL goal <100 TAKE 1 TABLET BY MOUTH DAILY. 90 tablet 2 0 Active insulin glargine (BASAGLAR KWIKPEN) 100 UNIT/ML penIndications:Typ e 2 diabetes mellitus without complication, with long-term current use of insulin (H) INJECT 10 UNITS UNDER THE SKIN DAILY 30 mL 3 0 Active metFORMIN (GLUCOPHAGE) 1000 MG tabletIndications: Type 2 diabetes mellitus without complication, with long-term current use of insulin (H) TAKE 1 TABLET BY MOUTH TWICE DAILY BREAKFAST AND DINNER WITH MEALS 30 tablet 0 Active carvedilol (COREG) 3.125 MG tabletIndications: Essential hypertension with goal blood pressure less than 140/90 TAKE 1 TABLET(3.125 MG) BY MOUTH TWICE DAILY 30 tablet 0 Active rosuvastatin (CRESTOR) 40 MG tabletIndications: High blood triglycerides TAKE 1 TABLET(40 MG) BY MOUTH DAILY 90 tablet 0 Active lisinopril (ZESTRIL) 40 MG tabletIndications: Essential hypertension with goal blood pressure less than 140/90,Type 2 diabetes mellitus with other specified complication, with long-term current use of insulin (H) Take 1 tablet (40 mg) by mouth daily 30 tablet 1 Active omega-3 acid ethyl esters (LOVAZA) 1 g capsuleIndications :Hypertriglyceride sam,Hyperlipidemia LDL goal <100 TAKE 4 CAPSULES BY MOUTH EVERY DAY WITH FOOD 60 capsule 1 Active Active Problems Problem Noted Date Diagnosed Date Obese 04/15/2015 Acute pancreatitis 06/28/2014 Overview (07/24/2014): secondary to triglycerides- June 2014 Vitamin D deficiency 05/06/2014 Overview (03/29/2015): Problem list name updated by automated process. Provider to review Hypertension goal BP (blood pressure) < 140/90 0 10/19/2010 Hyperlipidemia LDL goal <100 10/19/2010 Pseudocyst of pancreas 10/19/2010 Type 2 diabetes mellitus without complications 1 Personal history of breast cancer 07/23/2009 Overview (07/23/2009): 2004 Pure hyperglyceridemia 05/12/2006 Overview (05/12/2006): T 05/03 Resolved Problems Problem Noted Date Diagnosed Date Resolved Date Diabetes mellitus, type 2 07/23/2009 Overview (03/29/2015): Problem list name updated by automated process. Provider to review Diabetes mellitus, type 2 05/12/2006 Overview (03/28/2015): Problem list name updated by automated process. Provider to review Immunizations Immunization Administration Dates Next Due Influenza (IIV3) PF [...] School Help Needed Not on file 04/13 Comments No Sex and Gender Information Value Date Recorded Sex Assigned at Female 07/06/2018 4:08 PM MASON FOREMAN/SUPERINTENDANT Legal Sex Female 4:44 AM MASON FOREMAN/SUPERINTENDANT Gender Identity Female 07/06/2018 4:08 PM MASON FOREMAN/SUPERINTENDANT Sexual Orientation Straight 07/06/2018 4: 08 PM MASON FOREMAN/SUPERINTENDANT Occupation Industry Job Start Date Job End Date Not on file Not on file Not on file Not on file Last Filed Vital Signs Vital Sign Reading Time Taken Comments Blood Pressure 139/82 05/15/2019 8:37 AM MASON FOREMAN/SUPERINTENDANT Pulse 86 05/15/2019 8:37 AM MASON FOREMAN/SUPERINTENDANT Temperature 36.7 C (98 F) 05/15/2019 8:37 AM MASON FOREMAN/SUPERINTENDANT Respiratory Rate 17 05/15/2019 8:37 AM MASON FOREMAN/SUPERINTENDANT Oxygen Saturation 98% 05/15/2019 8:37 AM MASON FOREMAN/SUPERINTENDANT Inhaled Oxygen Concentration - - Weight 88.7 kg (195 lb 9.6 oz) 05/15/2019 8:37 A M MASON FOREMAN/SUPERINTENDANT Height 163.8 cm (5' 4.5) 05/15/2019 8:37 AM MASON FOREMAN/SUPERINTENDANT Body Mass Index 33.06 05/15/2019 8:37 AM MASON FOREMAN/SUPERINTENDANT Plan of Treatment Not [place] [address] [facility] Advance Directives For more information, please contact: [phone] * Full Code (Latest Code Status on File) Date Activated Date Inactivated Comments 10/08/2017 7:25 AM * Full Code Date Activated Date Inactivated Comments 10/04/2017 11:55 PM 10/08/2017 7:25 AM Care Teams Mine Motor Engineer Relationship Specialty Start Date End Date Daisy Radford PA-C [address] [place] [address] PCP - General Physician Ball Points Inspector 12/19/13
--- OUTSIDE RECORDS SUMMARY | 2025-04-02 21:22 | XMS_ITS | Encounter Summary ---
Author Organization [facility] Address [address] [place] [address]. [place] [address] Care Team Providers Care Senior Software Project Manager Name Role Phone Daisy Radford PA-C Primary Care Pr ovider Daisy Radford PA-C Unavailable Daisy Radford PA-C Unavailable Reason for Visit * Reason Comments Medication Refill Amaryl, Crestor Encounter Details Date Type Department Care Team (Late st Contact Info) Description 12/17/2017 Refill [facility] [id number] [place] [phone] Daisy Radford PA-C [address] [place] [phone] Medication Refill (Amaryl, Crestor) Social History Tobacco Use Types Packs/Day Years Used Date Smoking Tobacco: Never Smokeless Tobacco: Never Comments:NA Alcohol Use Standard Drinks/Week Comments No 0 (1 standard drink = 0.6 oz pur e alcohol) occasionally Comments No Sex and Gender Information Value Date Recorded Sex Assigned at Female 07/06/2018 4:08 PM HUMAN GEOGRAPHY INSTRUCTOR Legal Sex Female 4:44 AM HUMAN GEOGRAPHY INSTRUCTOR Gender Identity Female 07/06/2018 4:08 PM HUMAN GEOGRAPHY INSTRUCTOR Sexual Orientation Straight 07/06/2018 4: 08 PM HUMAN GEOGRAPHY INSTRUCTOR Occupation Industry Job Start Date Job End [...] if appropriate. Teresa Nova RN, BSN, PHN [facility] RN * Telephone Encounter - Teresa [...] CDT Anson Thomason with Daisy Radford PA-C [facility] [id number] [place] [phone] Passed - Patient has documented LDL [...] CDT Anson Thomason with Daisy Radford PA-C [facility] ([facility]) [address] [facility] [phone] documented in this encounter Plan of Treatment Not on file documented as of this encounter Visit Diagnoses Diagnosis Type 2 diabetes mellitus without complication, without long-term current use of insulin (H) Pure hyperglyceridemia Type 2 diabetes mellitus without complication, with long-term current use of insulin (H) documented in this encounter Care Teams Senior Software Project Manager Relationship Specialty Start Date End Date Daisy Radford PA-C [address] [place] [address] PCP - General Physician Personnel Research Psychologist 12/19/13 Daisy Radford PA-C [address] [place] [address] PCP - Assigned PCP 12/24/13 08/30/18 Daisy Radford PA-C [address] [place] [address] Assigned PCP 12/24/13 05/15/22 documented as of this encounter
--- OUTSIDE RECORDS SUMMARY | 2025-04-02 21:22 | XMS_ITS | Clinical Summary ---
Author Organization [facility] Address [address] [address] Care Team Providers Care Astro Technician Name Role Phone Cathleen Hebert MD Primary Care Provider Source Comments You are receiving this document as you are listed as the primary care provider,follow-up provider, or the patient has been referred to you for consultation.This is in compliance with the Medicare and[facility] Hospital[facility] EHR Incentive Program,which states Providers who transition their patient to another setting of careor provider of care or refers their patient to another provider of care shouldprovide summary care record for each transition of care or referral. [facility] Allergies No known active allergies Medications amLODIPine (NORVASC) 10 MG tablet 01/03/20 21 Active carvedilol (COREG) 3.125 MG tablet Take 3.125 mg by mouth two times a day. 11/13/19 21 Active lisinopril (ZESTRIL) 40 MG tablet Take 40 mg by mouth daily. 11/16/19 21 Active metFORMIN (GLUCOPHAGE) 1000 MG tablet Take 1,000 mg by mouth two times a day with meals. 11/28/19 21 Active hydroCHLOROthiaz srikanth (ORETIC) 25 MG tablet Take 25 mg by mouth daily. Active rosuvastatin (CRESTOR) 40 MG tablet Take 40 mg by mouth daily. Active omega-3 fatty acids (FISH OIL) 1000 MG capsule Take 2 g by mouth daily. Active MULTIPLE VITAMIN OR Active aspirin EC 81 MG enteric coated tablet Take 81 mg by mouth daily. Active empagliflozin (JARDIANCE) 25 MG tabletIndication s:Hypertriglycer idemia (HRC) Take 1 Tablet by mouth daily. 90 Tablet 2 02/14/20 21 Active glimepiride (AMARYL) 4 MG tablet Take 4 mg by mouth daily. 02/21/20 22 Active SURE COMFORT PEN NEEDLES 30G X 8 MM 03/05/20 22 Active insulin aspart protamine-aspart insulin (NOVOLOG MIX 70/30) (70-30) 100 UNIT/ML pen injectionIndicat ions:Diabetes Mellitus Inject 30 Units subcutaneously two times a day with meals. Indications: Diabetes Mellitus 30 mL 3 04/01/20 22 Active gemfibrozil (LOPID) 600 MG tablet Take 1 Tablet (600 mg) by mouth two times a day before meals. 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) Use once every 10 days 3 Each 11 04/06/20 22 Active Active Problems Problem Noted Date Diagnosed Date HTN (hypertension) 02/13/2021 Uncontrolled type 2 diabetes mellitus with hyper glycemia 02/13/2021 Hypertriglyceridemia 02/13/2021 Social History Tobacco Use Types Packs/Day Years Used Date Smoking Tobacco: Never Smokeless Tobacco: Never Comments Unknown Sex and Gender Information Value Date Recorded Sex Assigned at Not on file Legal Sex Female 7:47 AM CDT Gender Identity Not on file [...] Colon Cancer Screening Plan Due 1966 Diabetes: Albumin/Creatinine Ratio, Urine 1966 Diabetes: Creatinine 1966 Diabetes: Eye Exam 1966 Diabetes: Foot Exam 1966 Diabetes: Lipid Panel 1966 Hep C Screening (Preventive Services) 1966 Mammogram 1966 HIV Screening (Preventive Services) 1982 Adult Preventive Visit 1984 HepB Vaccine (1) 1985 Pneumococcal Vaccine 50+ Yrs (2 of 2 - PCV) 05/07/2016 05/07/2015 Zoster/Shingles Vaccine (2 of 2) 01/22/2022 11/27/2021 Diabetes: HGBA1C 09/30/2022 04/01/2022 COVID-19 Vaccine (4 - season) 2025 07/25/2021, 10/05/2020, 09/14/2020 Influenza Vaccine (#1) 2025 , 08/28/2020, 03/28/2015, Additional history exists DTaP/Tdap/Td Vaccine (3 - Tdap) 01/02/2031 01/02/2021, 07/19/2007 RSV Vaccine (1 - 1-dose 75+ series) 2041 HepA Vaccine Aged Out No longer eligi ble based on patient's age to complete this topic Hib Vaccine Aged Out No longer eligi ble based on patient's age to complete this topic IPV (Polio) Vaccine Aged Out No longe r eligible based on patient's age to complete this topic MCV4 Vaccine Aged Out No longer eligi ble based on patient's age to complete this topic Meningococcal B Vaccine Aged Out No l onger eligible based on patient's age to complete this topic Procedures Procedure Name Priority Date/Time Associated Diagnosis Comments POCT GLYCOSYLATED HEMOGLOBIN (HGB A1C) Routine 04/01/2022 3:22 PM CDT Hypertriglyceridemi a from Last 3 Months or Most Recently Relevant to Health Maintenance Results * (ABNORMAL) POCT glycosylated hemoglobin (Hb A1C) (04/01/2022 3:22 PM CDT) Hemoglobin A1C (Rapid) 8.1(A) <=5.6 % POCT Cartridge Lot# [id number] POCT Blood 04/01/2022 3:22 PM CDT Loyda ALBRECHT ET POINT OF CARE TEST ENT ER/EDIT ORDERABLES Final Result POCT from Last 3 Months or Most Recently Relevant to Health Maintenance Insurance [facility] Care Teams Astro Technician Relationship Specialty Start Date End Date Cathleen Hebert MD [address] [place] [address] PCP - General Family Practice 04/01/22
--- OUTSIDE RECORDS SUMMARY | 2025-04-02 21:22 | XMS_ITS | Encounter Summary ---
Author Organization [facility] Address [address] [place] [address] Care Team Providers Care Intervention Nurse Name Role Phone Daisy Radford PA-C Primary Care Pr ovider Daisy Radford PA-C Unavailable Reason for Referral * Consultation (Routine) - Closed Specialty Diagnoses / Procedures Referred By Monik gilbert Referred To Contact Diagnoses Hypertriglyceridemia Type 2 diabetes mellitus with other specified complication, with long-term current use of insulin (H) Daisy Radford PA-C [address] [place] [address] Phone: tel: fax: MULTIPLE LOCATIONS Referral ID Status Reason Start Date Expiration Date Visits Re quested Visits Authorized [id number] Closed 05/22/2019 05/21/2020 1 1 Comments Your provider has referred you to: [facility]: [facility] [email or web address] [facility]: [facility] [email or web address] [facility]: [facility] [email or web address] [facility]: [facility] [email or web address] [facility] Please be aware that coverage of these services is subject to the terms and limitations of your health insurance plan. Call member services at your health plan with any benefit or coverage questions. Please bring the following to your appointment: >> Any x-rays, CTs or MRIs which have been performed. Contact the facility where they were done to arrange for flower picker prior to your scheduled appointment. >> List of current medications >> This referral request >> Any documents/labs given to you for this referral SANDER Reason for Visit * Reason Onset Date Comments MyChart Communication 05/22/2019 Encounter Details Date Type Department Care Team (Latest Contact Info) Description 05/22/2019 [facility] [id number] [place] [phone] Daisy Radford PA-C [id number] [place] [address] MyChart Communication Social History Tobacco Use Types Packs/Day Years Used Date Smoking Tobacco: Never Smokeless Tobacco: Never Comments:NA Alcohol Use Standard Drinks/Week Comments No 0 (1 standard drink = 0.6 oz pur e alcohol) occasionally PHQ-2 Answer Date Recorded PHQ-2 Score 0 10/24/2018 Comments No Sex and Gender Information Value Date Recorded Sex Assigned at Female 07/06/2018 4:08 PM HAND SANDER Legal Sex Female 4:44 AM HAND SANDER Gender Identity Female 07/06/2018 4:08 PM HAND SANDER Sexual Orientation Straight 07/06/2018 4: 08 PM HAND SANDER Occupation Industry Job Start Date Job End [...] (H) documented in this encounter Care Teams Intervention Nurse Relationship Specialty Start Date End Date Daisy Radford PA-C [address] [place] [address] PCP - General Physician Infant Nanny 12/19/13 Daisy Radford PA-C [address] [place] [address] Assigned PCP 12/24/13 05/15/22 documented as of this encounter
--- OUTSIDE RECORDS SUMMARY | 2025-04-02 21:22 | XMS_ITS | Encounter Summary ---
Author Organization [facility] Address [address] [place] [address] Care Team Providers Care Wheel Shop Supervisor Name Role Phone Daisy Radford PA-C Primary Care Pr ovider Daisy Radford PA-C Unavailable Daisy Radford PA-C Unavailable Encounter Details Date Type Department Care Team (Late st Contact Info) Description 08/19/2018 My[facility] Medical Advice [address] [phone] Praveena Juares APRN [facility] [address] [place] [address] [address] [place], [place] [address] Social History Tobacco Use Types Packs/Day Years Used Date Smoking Tobacco: Never Smokeless Tobacco: Never Comments:NA Alcohol Use Standard Drinks/Week Comments No 0 (1 standard drink = 0.6 oz pur e alcohol) occasionally PHQ-2 Answer Date Recorded PHQ-2 Score 0 07/05/2018 Comments No Sex and Gender Information Value Date Recorded Sex Assigned at Female 07/06/2018 4:08 PM ELEMENTARY LIBRARIAN Legal Sex Female 4:44 AM ELEMENTARY LIBRARIAN Gender Identity Female 07/06/2018 4:08 PM ELEMENTARY LIBRARIAN Sexual Orientation Straight 07/06/2018 4: 08 PM ELEMENTARY LIBRARIAN Occupation Industry Job Start Date Job End Date Not on file Not on file Not on file Not on file documented as of this encounter Plan of Treatment Not on file documented as of this encounter Visit Diagnoses Not on filedocumented in this encounter Care Teams Wheel Shop Supervisor Relationship Specialty Start Date End Date Daisy Radford PA-C [address] [place] [address] PCP - General Physician Travel Agent 12/19/13 Daisy Radford [place]-C [address] [place] [address] PCP - Assigned PCP 12/24/13 08/30/18 Daisy Radford PA-C [address] [place] [address] Assigned PCP 12/24/13 05/15/22 documented as of this encounter
--- OUTSIDE RECORDS SUMMARY | 2025-04-02 21:22 | XMS_ITS | Encounter Summary ---
Author Organization [facility] Address [address] [place] [address] Care Team Providers Care Measurement Operator Name Role Phone Daisy Radford PA-C Primary Care Pr ovider Sherry Gutierrez RN Unavailable [phone] Daisy Radford PA-C Unavailable Daisy Radford PA-C Unavailable Encounter Details Date Type Department Care Team (Late st Contact Info) Description 12/09/2015 MyC Medical Advice [address] [phone] Praveena Juares, ENGRAVER PANTOGRAPH GRAVEL INSPECTOR [address] [place] [address] [address] [place] [address] Social History Tobacco Use Types Packs/Day Years Used Date Smoking Tobacco: Never Smokeless Tobacco: Never Comments:NA Alcohol Use Standard Drinks/Week Comments No 0 (1 standard drink = 0.6 oz pur e alcohol) occasionally Comments No Sex and Gender Information Value Date Recorded Sex Assigned at Female 07/06/2018 4:08 PM LUMBER RACKER Legal Sex Female 4:44 AM LUMBER RACKER Gender Identity Female 07/06/2018 4:08 PM LUMBER RACKER Sexual Orientation Straight 07/06/2018 4: 08 PM LUMBER RACKER Occupation Industry Job Start Date Job End Date Not on file Not on file Not on file Not on file documented as of this encounter Plan of Treatment Not on file documented as of this encounter Visit Diagnoses Not on filedocumented in this encounter Care Teams Measurement Operator Relationship Specialty Start Date End Date Daisy Radford PA-C [address] [place] [address] PCP - General Physician Sofa Back Upholsterer 12/19/13 Daisy Radford PA-C [address] [place] [address] PCP - Assigned PCP 12/24/13 08/30/18 Sherry Gutierrez RN Clinic Rn Radiation Primary Care - [facility] 10/11/1709/26 Daisy Radford PA-C [address] [place] [address] Assigned PCP 12/24/13 05/15/22 documented as of this encounter
--- OUTSIDE RECORDS SUMMARY | 2025-04-02 21:22 | XMS_ITS | Encounter Summary ---
Author Organization [facility] Address [address] [place] [address] Care Team Providers Care Heeler Name Role Phone Daisy Radford PA-C Primary Care Pr ovider Daisy Radford PA-C Unavailable Daisy Radford PA-C Unavailable Encounter Details Date Type Department Care Team (Late st Contact Info) Description 01/03/2018 MyC Medical Advice [address] [phone] Praveena Juares APRN THEATRE PROFESSOR [address] [place] [address] [address] [place], [place] [id number] Social History Tobacco Use Types Packs/Day Years Used Date Smoking Tobacco: Never Smokeless Tobacco: Never Comments:NA Alcohol Use Standard Drinks/Week Comments No 0 (1 standard drink = 0.6 oz pur e alcohol) occasionally Comments No Sex and Gender Information Value Date Recorded Sex Assigned at Female 07/06/2018 4:08 PM SCREENER AND BLENDER OPERATOR Legal Sex Female 4:44 AM SCREENER AND BLENDER OPERATOR Gender Identity Female 07/06/2018 4:08 PM SCREENER AND BLENDER OPERATOR Sexual Orientation Straight 07/06/2018 4: 08 PM SCREENER AND BLENDER OPERATOR Occupation Industry Job Start Date Job End Date Not on file Not on file Not on file Not on file documented as of this encounter Plan of Treatment Not on file documented as of this encounter Visit Diagnoses Not on filedocumented in this encounter Care Teams Heeler Relationship Specialty Start Date End Date Daisy Radford PA-C [address] [place] [address] PCP - General Physician Real Estate Attorney 12/19/13 Daisy Radford PA-C [address] [place] [address] PCP - Assigned PCP 12/24/13 08/30/18 Daisy Radford PA-C [address] [place] [address] Assigned PCP 12/24/13 05/15/22 documented as of this encounter
--- OUTSIDE RECORDS SUMMARY | 2025-04-02 21:22 | XMS_ITS | Encounter Summary ---
Author Organization [facility] Address [address] [place] [address]. [place] [address] Care Team Providers Care Ocean Freight Agent Name Role Phone Daisy Radford PA-C Primary Care Pr ovider Sherry Gutierrez RN Unavailable [phone] Daisy Radford PA-C Unavailable Daisy Radford PA-C Unavailable Reason for Visit * Reason Onset Date Comments Refill Request 02/10/2017 Encounter Details Date Type Department Care Team (Late st Contact Info) Description 02/10/2017 MyC Refill [facility] [id number] [place] [phone] Daisy Radford PA-C [id number] [place] [address] [phone] Refill Request Social History Tobacco Use Types Packs/Day Years Used Date Smoking Tobacco: Never Smokeless Tobacco: Never Comments:NA Alcohol Use Standard Drinks/Week Comments No 0 (1 standard drink = 0.6 oz pur e alcohol) occasionally Comments No Sex and Gender Information Value Date Recorded Sex Assigned at Female 07/06/2018 4:08 PM TOOL AND DIE MAKER LEVEL FIVE Legal Sex Female 4:44 AM TOOL AND DIE MAKER LEVEL FIVE Gender Identity Female 07/06/2018 4:08 PM TOOL AND DIE MAKER LEVEL FIVE Sexual Orientation Straight 07/06/2018 4: 08 PM TOOL AND DIE MAKER LEVEL FIVE Occupation Industry Job Start Date Job End [...] 3 Last Office Visit with [facility], [facility] or [facility] prescribing provider: 02/01/16 Next 5 appointments (look out 90 days) Feb 23, 2017 8:30 AM CDT Anson Thomason with Daisy Radford PA[facility] [address] [facility] [phone] BP Readings from Last 3 Encounters: [...] RN - 02/10/2017 12:03 PM CDT[facility]: Original authorizing provider: STEFFEN Rodriguez would [...] MG tablet [Daisy Radford PA-C] Preferred pharmacy: [facility] [address] [place] [address] [facility] Comment: I've scheduled an appointment with Daisy [...] 140/90 documented in this encounter Care Teams Ocean Freight Agent Relationship Specialty Start Date End Date Daisy Radford PA-C [address] [place] [address] PCP - General Physician Parole Hearing Officer 12/19/13 Daisy Radford PA-C [address] [place] [address] PCP - Assigned PCP 12/24/13 08/30/18 Sherry Gutierrez, MAVERICK Clinic Motor Room Controller Primary Care - CC 10/11/1709/26 Daisy Radford PA-C [address] [place] [address] Assigned PCP 12/24/13 05/15/22 documented as of this encounter
--- OUTSIDE RECORDS SUMMARY | 2025-04-02 21:23 | XMS_ITS | Encounter Summary ---
Author Organization [place] [facility] Address [address] [place] [address] Care Team Providers Care Rn Otolaryngology Name Role Phone Jaden Barrett MD Primary Care Provider Daisy Radford PA-C Primary Care Pr ovider Sherry Gutierrez RN Unavailable Daisy Radford PA-C Unavailable Daisy Radford PA-C Unavailable Encounter Details Date Type Department Care Team (Late st Contact Info) Description 06/07/2013 [facility] [address] [phone] [facility] Social History Tobacco Use Types Packs/Day Years Used Date Smoking Tobacco: Never Smokeless Tobacco: Never Alcohol Use Standard Drinks/Week Comments Yes 0 (1 standard drink = 0.6 oz pur e alcohol) occasionally Comments No Sex and Gender Information Value Date Recorded Sex Assigned at Female 07/06/2018 4:08 PM MANAGER OF FINANCE Legal Sex Female 4:44 AM MANAGER OF FINANCE Gender Identity Female 07/06/2018 4:08 PM MANAGER OF FINANCE Sexual Orientation Straight 07/06/2018 4: 08 PM MANAGER OF FINANCE Occupation Industry Job Start Date Job End Date Not on file Not on file Not on file Not on file documented as of this encounter Plan of Treatment Not on file documented as of this encounter Visit Diagnoses Not on filedocumented in this encounter Care Teams Rn Otolaryngology Relationship Specialty Start Date End Date Jaden Barrett MD PCP - General 07/02/06 12/18/13 Daisy Radford PA-C [address] [place] [address] PCP - General Physician Captain'S Assistant 12/19/13 Daisy Radford PA-C [address] [place] [address] PCP - Assigned PCP 12/24/13 08/30/18 Sherry Gutierrez, MAVERICK Clinic Waiter Primary Care - CC 10/11/1709/26 Daisy Radford PA-C [address] [place] [address] Assigned PCP 12/24/13 05/15/22 documented as of this encounter
--- OUTSIDE RECORDS SUMMARY | 2025-04-02 21:23 | XMS_ITS | Encounter Summary ---
Author Organization [place] Address [address] [place] [address] Care Team Providers Care End Polisher Name Role Phone Jaden Barrett MD Primary Care Provider Daisy Radford PA-C Primary Care Pr ovider Sherry Gutierrez RN Unavailable [phone] Daisy Radford PA-C Unavailable Daisy Radford PA-C Unavailable Encounter Details Date Type Department Care Team (Late st Contact Info) Description 11/04/2011 MyC Medical Advice [facility] [id number] [place] [id number] Jaden Barrett MD [address] [place] [phone] Social History Tobacco Use Types Packs/Day Years Used Date Smoking Tobacco: Never Smokeless Tobacco: Never Alcohol Use Standard Drinks/Week Comments Yes 0 (1 standard drink = 0.6 oz pur e alcohol) occasionally Comments No Sex and Gender Information Value Date Recorded Sex Assigned at Female 07/06/2018 4:08 PM ESTIMATOR Legal Sex Female 4:44 AM ESTIMATOR Gender Identity Female 07/06/2018 4:08 PM ESTIMATOR Sexual Orientation Straight 07/06/2018 4: 08 PM ESTIMATOR Occupation Industry Job Start Date Job End Date Not on file Not on file Not on file Not on file documented as of this encounter Plan of Treatment Not on file documented as of this encounter Visit Diagnoses Not on filedocumented in this encounter Care Teams End Polisher Relationship Specialty Start Date End Date Jaden Barrett MD PCP - General 07/02/06 12/18/13 Daisy Radford PA-C [address] [place] [address] PCP - General Physician Hot Billet Shear Operator 12/19/13 Daisy Radford PA-C [address] [place] [address] PCP - Assigned PCP 12/24/13 08/30/18 Sherry Gutierrez RN Clinic Hospital Scientist Primary Care - CC 10/11/1709/26 Daisy Radford PA-C [address] [place] [address] Assigned PCP 12/24/13 05/15/22 documented as of this encounter
--- OUTSIDE RECORDS SUMMARY | 2025-04-02 21:23 | XMS_ITS | Encounter Summary ---
Author Organization [facility] Address [address] [place] [address] Care Team Providers Care Experience Design Director Name Role Phone Daisy Radford PA-C Primary Care Pr ovider Sherry Gutierrez RN Unavailable Daisy Radford PA-C Unavailable Daisy Radford PA-C Unavailable Encounter Details Date Type Department Care Team (Late st Contact Info) Description 03/08/2015 [facility] Advice [address] [phone] Martita Fernandes, FRENCH TRANSLATOR Social History Tobacco Use Types Packs/Day Years Used Date Smoking Tobacco: Never Smokeless Tobacco: Never Alcohol Use Standard Drinks/Week Comments Yes 0 (1 standard drink = 0.6 oz pur e alcohol) occasionally Comments No Sex and Gender Information Value Date Recorded Sex Assigned at Female 07/06/2018 4:08 PM TRAFFIC SIGN SUPERVISOR Legal Sex Female 4:44 AM TRAFFIC SIGN SUPERVISOR Gender Identity Female 07/06/2018 4:08 PM TRAFFIC SIGN SUPERVISOR Sexual Orientation Straight 07/06/2018 4: 08 PM TRAFFIC SIGN SUPERVISOR Occupation Industry Job Start Date Job End Date Not on file Not on file Not on file Not on file documented as of this encounter Plan of Treatment Not on file documented as of this encounter Visit Diagnoses Not on filedocumented in this encounter Care Teams Experience Design Director Relationship Specialty Start Date End Date Daisy Radford PA-C [address] [place] [address] PCP - General Physician Manager Unit 12/19/13 Daisy Radford PA-C [address] [place] [address] PCP - Assigned PCP 12/24/13 08/30/18 Sherry Gutierrez RN Clinic Mask Designer Primary Care - CC 10/11/1709/26 Daisy Radford PA-C [address] [place] [address] Assigned PCP 12/24/13 05/15/22 documented as of this encounter
[2025-04-02 21:27] LABS: Hematocrit* 30.4 % (33.0-51.0); Hemoglobin* 11.0 gm/dL (12.0-16.0); Immature Granulocytes Pct Auto 0.4 %; Mean Corpuscular HGB Conc 36 gm/dL (32-36); Mean Corpuscular Hemoglobin 30 pg (26-34); Mean Corpuscular Volume 84 fL (80-100); RDW Coefficient of Variation % 14.6 % (11.5-15.5); Red Blood Count* 3.63 m/uL (4.00-5.20); White Blood Count* 13.41 K/uL (4.50-11.00)
[2025-04-02 21:29] LABS: Immature Granulocytes Abs Auto 0.10 K/uL (0.00-0.30); Lymphocytes Absolute Auto 1.90 K/uL (0.90-2.90); Slide Review Reflex No
[2025-04-02 21:39] LABS: Albumin* 4.5 g/dL (3.3-5.0); Chloride* 98 mmol/L (96-114); Potassium* 4.4 mmol/L (3.6-5.1); Sodium* 131 mmol/L (135-149)
[2025-04-02 21:41] LABS: Alanine Aminotransferase* 12 U/L (4-35); Aspartate Amino Transferase* 24 U/L (12-35); Blood Urea Nitrogen* 78 mg/dL (7-30); Creatinine* 1.7 mg/dL (0.5-1.5); Est. Creatinine Clearance* 32.46; Estimated Glomerular Filt Rate 35 ml/min
[2025-04-02 21:42] LABS: Alkaline Phosphatase* 74 U/L (40-150); Anion Gap 14 mEq/L (7-15); Bilirubin Total* 1.1 mg/dL (0.1-1.5); Calcium* 9.6 mg/dL (8.4-10.6); Carbon Dioxide* 19 mmol/L (20-32); Glucose* 218 mg/dL (60-115); Total Protein* 8.6 g/dL (6.0-8.3)
[2025-04-02] MEDS: LACTATED RINGERS 1000 ML 1,000 ML IV (22:27)
[2025-04-02 22:30] VITALS: BP 127/70; PULSE 83; RESP 18; TEMP 37; O2SAT 96
[2025-04-02 23:24] LABS: Lactate* 1.4 mmol/L (0.5-1.9)
[2025-04-03] VITALS (9 sets, daily range): BP systolic 109–124; BP diastolic 55–66; PULSE 75–95; RESP 16–18; TEMP 36.5–37.2; O2SAT 96–100; BMI 29.1; BMI 29.2
--- NOTE | 2025-04-03 02:39 | W.PM.TELEH&P ---
Telehealth- H&P: HPI History of Present Illness Date Seen: 04/03/25 Chief complaint: pain in mid stomach/ COVID+ Narrative: Beatriz Castillo is seen as an Interactive Telehealth visit. Beatriz Castillo is a 59 year old female With past medical history significant for hypertension, hypertriglyceridemia, type 2 diabetes, obesity, history of recurrent pancreatitis, history of left-sided breast cancer status postlumpectomy and radiation, who now presents to the emergency department with abdominal pain and concern for a urinary tract infection. Patient states that approximately 5 days prior to admission she and her had been diagnosed with COVID. She has been having difficulty eating as well as drinking. She denied any fever but did note some chills has ongoing cough however that is improved. She has noted some nasal congestion as well. She denies any nausea or vomiting. Denies any lightheadedness or dizziness. She notes today she had intermittent abdominal pain and given her history of pancreatitis she came into the emergency department. She also notes dysuria with urination. She notes that her abdominal pain has resolved. In the emergency department she was noted to have a WBC count of 13.41, hemoglobin of 11, hematocrit 30.4, platelet count 350 with noted left shift. Chemistries with a sodium of 131, potassium 4.4, BUN of 78, creatinine 1.7 with carbon dioxide 19. Lactate was noted to be 1.4. Lipase 435. UA was cloudy with 3+ protein 1+ leuk esterases 50-100 WBCs moderate bacteria. Given SUMAN as well as urinary tract infection, patient was subsequently admitted for further management. Review of Systems Status of ROS: Reports: 10 or more systems reviewed and unremarkable except as noted in History and below [facility] Medical History Proteinuria ?R80.9 - Proteinuria, unspecified (ICD-10) Diabetes mellitus with insulin therapy ?E11.9 - Type 2 diabetes mellitus without complications (ICD-10) ?Z79.4 - meterman (current) use of insulin (ICD-10) Diabetes mellitus, insulin dependent (IDDM), uncontrolled Onychomycosis of toenail ?B35.1 - Tinea unguium (ICD-10) Nonproliferative diabetic retinopathy (~01/2022) ?E11.3299 - Type 2 diabetes mellitus with mild nonproliferative diabetic retinopathy without macular edema, unspecified eye (ICD-10) Type 2 diabetes mellitus (2000) ?E11.9 - Type 2 diabetes mellitus without complications (ICD-10) Obesity with body mass index (BMI) of 30.0 to 39.9 ?E66.9 - Obesity, unspecified (ICD-10) Malignant neoplasm of breast (2003) ?C50.919 - Malignant neoplasm of unspecified site of unspecified female breast (ICD-10) Hypertriglyceridemia ?E78.1 - Pure hyperglyceridemia (ICD-10) Hypertension ?I10 - Essential (primary) hypertension (ICD-10) Diabetic neuropathy ?E11.40 - Type 2 diabetes mellitus with diabetic neuropathy, unspecified (ICD-10) Surgical History H/O basal cell carcinoma excision ?Z98.890 - Other specified postprocedural states (ICD-10) ?Z85.828 - Personal history of other malignant neoplasm of skin (ICD-10) History of ovarian cystectomy (1997) ?Z98.890 - Other specified postprocedural states (ICD-10) ?Z87.42 - Personal history of other diseases of the female genital tract (ICD-10) History of neck surgery (1997) ?Z98.890 - Other specified postprocedural states (ICD-10) History of lumpectomy (2003) ?Z98.890 - Other specified postprocedural states (ICD-10) History of hysterectomy (2004) ?Z90.710 - Acquired absence of both cervix and uterus (ICD-10) Family History Sister Breast cancer, Onset Age: 32 Mother Type 2 diabetes mellitus Brother Type 2 diabetes mellitus Maternal Grandmother Pacemaker Other Prostate cancer Social History Narrative: Does not drink alcohol walks 1-2/ week , 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[employer], 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, lives in [place] Non-smoker What is your current living situation?: I presently have a place to live Problems where you live: no known problems Problems where you live details: N/A In the past 12 months, utilities in danger of being shut off: no In past 12 months, lack of transportation kept you from medical appts, meetings, work, or getting things needed for daily living: no In the past 12 mos, have been you worried that your food would run out before you had money to buy more?: never true In the past 12 mos, the food you bought just didn't last and you didn't have money to buy more?: never true Smoking Status: Never smoker Do you use any of these nicotine containing products: None How often do you have a drink containing alcohol: monthly or less Alcohol type: beer How often do you have six or more drinks on one occasion: Never AUDIT-C Alcohol total score: 1 Non-prescribed substance use: denies use Caffeine: Yes How often does anyone, including family, friends and others, physically hurt you: never How often does anyone, including family, friends and others, insult or talk down to you: never How often does anyone, including family, friends and others, threaten you with harm: never How often does anyone, including family, friends and others, scream or curse at you: never service: No Meds Home Medications and Allergies Home Medications ?Medication ?Instructions ?Recorded ?Confirmed ?Type aspirin 81 mg tablet,delayed 81 mg PO QDAY 03/05/22 03/01/25 History release multivitamin (Daily Multi-Vitamin 1 tab PO QDAY 03/05/22 03/01/25 History tablet) omega-3 acid ethyl esters 1 gram 4 cap PO DAILY #120 caps 07/04/24 03/01/25 Rx capsule amlodipine 10 mg tablet 10 mg PO QDAY #90 tabs 01/31/25 03/01/25 Rx empagliflozin 25 mg tablet 25 mg PO QDAY #90 tabs 01/31/25 03/01/25 Rx (Jardiance) gemfibrozil 600 mg tablet 600 mg PO BID #180 tabs 01/31/25 03/01/25 Rx glimepiride 4 mg tablet 4 mg PO QDAY #90 tabs 01/31/25 03/01/25 Rx hydrochlorothiazide 25 mg tablet 25 mg PO DAILY #90 tabs 01/31/25 03/01/25 Rx lisinopril 40 mg tablet 40 mg PO DAILY #90 tabs 01/31/25 03/01/25 Rx metformin 1,000 mg tablet 1,000 mg PO BID #180 tabs 01/31/25 03/01/25 Rx pen needle, diabetic 31 gauge x #100 ea 01/31/25 03/01/25 Rx 5/16 (Sure Comfort Pen Needle) rosuvastatin 40 mg tablet 40 mg PO DAILY #90 tabs 01/31/25 03/01/25 Rx blood-glucose sensor (FreeStyle #6 ea 03/01/25 03/01/25 Rx Ramirez 3 Plus Sensor device) carvedilol 3.125 mg tablet 3.125 mg PO BID #180 tabs 03/01/25 03/01/25 Rx insulin glargine 100 unit/mL (3 60 unit (0.6 mL) subcut QPM #15 mL 03/12/25 Rx mL) subcutaneous pen (Basaglar KwikPen U-100 Insulin) Allergies Allergy/AdvReac Type Severity Reaction Status Date / Time No Known Allergies Allergy Unknown Verified 03/01/25 16:00 Exam Narrative Exam Narrative: Physical Exam GENERAL: ?vital signs reviewed, well developed and nourished, in no distress HEENT: pupils are equal round and reactive to light, extraocular movements are grossly within normal limits and oral mucosa is moist. NECK: Supple without lymphadenopathy or thyromegaly according to nursing staff examination observation HEART: Regular rate and rhythm without any rubs, murmurs, or gallops. LUNGS: Clear to auscultation bilaterally with good air movement throughout ABDOMEN: Observation from nurse assisted exam, abdomen appears soft, nontender, and nondistended with Positive bowel sounds noted. EXTREMITIES: Strength and sensation is observed to be grossly within normal limits in the upper and lower extremities.? No focal strength deficit is observed. SKIN:? Observed warm and dry with color normal Const Vital Signs, click to edit/add: Vital Signs - 24 hr 04/02/25 20:45 04/02/25 22:30 04/03/25 00:50 Temperature 98.1 F 98.6 F 99 F Pulse Rate [Left Pulse Oximeter] 93 83 Pulse Rate [Right Pulse Oximeter] 89 Respiratory Rate 16 18 18 Blood Pressure [Right Arm] 124/66 Blood Pressure [Right Upper Arm] 124/75 127/70 Pulse Oximetry 97 96 99 Oxygen Delivery Method Room Air Room Air Room Air Hospitalist - H&P: Result Labs Labs: Short CBC 04/02/25 Range/Units 21:18 WBC 13.41 H (4.50-11.00) K/uL Hgb 11.0 L (12.0-16.0) gm/dL Hct 30.4 L (33.0-51.0) % Plt Count 350 (140-440) K/uL BMP 04/02/25 21:18 Sodium 131 L Potassium 4.4 Chloride 98 Carbon Dioxide 19 L BUN 78 H Creatinine 1.7 H Glucose 218 H Calcium 9.6 Liver Function 04/02/25 Range/Units 21:18 Total Bilirubin 1.1 (0.1-1.5) mg/dL AST 24 (12-35) U/L ALT 12 (4-35) U/L Alkaline Phosphatase 74 (40-150) U/L Albumin 4.5 (3.3-5.0) g/dL Urine 04/02/25 Range/Units 20:54 Urine Color Yellow (Yellow) Urine Appearance Cloudy A (Clear) Urine pH 5.5 (5.0-8.5) Ur Specific [place] 1.025 (1.000-1.030) Urine Protein 3+ A (Negative) Urine Glucose (UA) Trace A (Negative) Assessment and Plan Assessment and plan (1) SUMAN (acute kidney injury): Status: Acute (2) COVID: Status: Acute (3) Diabetes mellitus with insulin therapy: Status: Acute (4) Urinary tract infection: Status: Acute Plan 59 year old female With past medical history significant for hypertension, hypertriglyceridemia, type 2 diabetes, obesity, history of recurrent pancreatitis, history of left-sided breast cancer status postlumpectomy and radiation, who now presents to the emergency department with abdominal pain And dysuria with noted recent COVID infection found to have acute kidney injury and UTI. Urinary tract infection Normal saline at 100 cc/h Follow-up urine culture Follow-up blood cultures x 2 IV ceftriaxone until cultures result Recent COVID infection greater than 5 days Supportive care Check chest x-ray Mucinex twice daily Hypertension hold home hydrochlorothiazide Hold home lisinopril Can resume Coreg and amlodipine once dosing is confirmed Type 2 diabetes Hold empagliflozin, glimepiride and metformin Resume home Lantus at reduced dosing with insulin sliding scale Hypertriglyceridemia Resume home meds Obesity Increases morbidity and mortality DVT prophylaxis: Lovenox subcu CODE STATUS: Full code Telehealth: Statement Statement Telehealth Visit: Today's History and Physical is provided via interactive telehealth by Ashley Eugene MD.? Patient is located at [facility].? Provider is located at [facility].? Nursing staff assisted with the patient's exam. The visit being done today meets criteria for a telehealth visit and the patient or patient?s parent/guardian is aware the visit is a telehealth visit. Camera Start Time: 01:25 Camera End Time: 01:39
--- NOTE | 2025-04-03 02:56 | CRLHL7_ITS ---
For Patients: As a result of the Century Cures Act, medical imaging exams and procedure reports are released immediately into your electronic medical record. You may view this report before your referring provider. If you have questions, please contact your health care provider. INDICATION: Cough. TECHNIQUE: Chest 1 view. COMPARISON: None. FINDINGS: Cardiovascular and mediastinum: Heart size and vasculature are normal in caliber and appearance. Lungs and pleural spaces: Lungs are clear. No sign of infiltrate or mass. No sign of pleural effusion. No pneumothorax. Bones and soft tissues: No significant findings. IMPRESSION: No consolidation. Dictated by Ritesh Acosta MD @ 04/03/2025 3:30:47 AM (Electronically Signed)
[2025-04-03] MEDS: cefTRIAXone 2 GM in 0.9 % SODIUM CHLORIDE Mini-bag 100 ML IVPB (03:26)
--- NOTE | 2025-04-03 04:11 | PC.NURSE ---
Shift note: Patient was brought to the floor at 2340 on a stretcher accompanied by her . Conscious, alert and oriented on arrival. Patient reported that she has had epigastric pain, poor appetite, urinary frequency and dysuria ever since she tested positive for covid. first tested positive for covid and patient contracted it. At the time of admission, patient confirmed that the epigastric pain has resolved. Vital signs monitored and recorded. Patient transfer from stretcher to bed by self. On examination, patient had no abdominal tenderness. Intermittent productive cough reported. Speech clear, no facial droop, equal strength in all extremities, however.. Lungs sound clear, no SOB, HR regular, no murmurs and edema,. Patient denied N/V and abdominal pain. No signs of confusion or distress. Initiated IV Ceftriaxone as prescribed. Patient doing well on room air. Education on covid 19 given. Patient oriented to room and call light. Patient has been in bed throughout the night. Made few visits to BR. Had adequate sleep. Vitally stable.
[2025-04-03] MEDS: SODIUM CHLORIDE 0.9 % (FLUSH) 10 ML SYRINGE 5 ML IVF ×2 (09:03→21:35)
[2025-04-03] MEDS: INSULIN ASPART 100 UNIT/ML SUBCUT ×4 (10:05→21:33)
--- NOTE | 2025-04-03 11:26 | W.PC.NUTR.HO ---
Hospital Nutrition Assessment Patient Data Patient Gender: Female Patient Age: 59 Height: 5 ft 5 in Weight: 175 lb 4.985 oz Body Mass Index: 29.1 Weight Calculations [place] Body Weight (lbs): 125.00 [place] Body Weight (kg): 56.70 Percent of [place] Body Weight: 140 Adjusted Body Weight (lbs): 137.58 Adjusted Body Weight (kg): 62.41 Basal Energy Expenditure (BEE): 1449.78 Basal Energy Expenditure (BEE) Adjusted Weight: 1286.15 Activity/Stress Factors Injury Factor/Activity Factor Value: 1.2 Total Energy Requirements Kcal requirements (current wt): 1739.736 Kcal requirements (adj wt): 1543.380 Protein Need (current wt): 1.0 Total Protein (current wt): 79.520 Protein Need (adj wt): 1.0 Total Protein (adj wt): 62.410 Fluid Need (current wt): 30 Total Fluid (current wt): 2385.600 Fluid Need (adj wt): 30 Total Fluid (adj wt): 1872.30 Nutrition Assessment Diet Order: Diabetic Food Modified for Dysphagia: 7-Regular Liquid Modified for Dysphagia: 0-Thin Allergies: NKFA Appetite Prior to Admission: Poor (Pt reports having difficulties with eating and drinking prior to arrival) Appetite and Intake: Breakfast this morning @ 75%. Hx Appetite Changes: Yes (poor prior to arrival) Hx Weight Loss: Yes (-9lbs within 30 days, ~5%.) Hx Weight Gain: No Nausea: No Vomiting: No Diarrhea: No Hx Constipation: No Chewing Difficulty: No Swallowing Difficulty: No Pressure Ulcer: No Clinical History: Medical history includes but not limited to hypertension, hypertriglyceridemia, type 2 diabetes, obesity, history of recurrent pancreatitis, history of left-sided breast cancer status post lumpectomy and radiation. Medications Medications: reviewed. Lab Results Lab Results: reviewed. Assessment/Plan PES Statement: Significant weight loss related to poor intakes prior to arrival as evidenced by weight loss of 5% within 30 days. Nutritional Assessment Summary: RDN with nutrition screen related to weight loss and diabetic diet. RDN attempted to visit with patient x3, however patient was not available. RDN limited to phone due to patient being covid positive. Will attempt to visit with patient at later date. Meal intake adequate at 75% since admit. Discharge Plan-Living Situation: TBD Goals: Adequate oral intakes of 50%+ meals. Plan/Recommendation: Diabetic diet per MD order. RDN will continue to monitor and attempt to visit at later date.
--- NOTE | 2025-04-03 12:29 | P.IMPN_ITS ---
Assessment and Plan Assessment and plan (1) SUMAN (acute kidney injury): Problem comment: Pt baseline Cr is 0.8, presented w/ Cr 1.7 IVF Treat underlying cause, UTI F/up labs Status: Acute (2) Urinary tract infection: Problem comment: Treat w/ Ceftriaxone IV F/up Cultures Status: Acute (3) COVID: Problem comment: Symptoms 5-6 days ago Pt denies SOB, satting 90s% Conservative Tx Status: Acute (4) Diabetes mellitus with insulin therapy: Status: Acute Total Time Spent Total Time Spent: Today I spent 50 minutes seeing the patient, reviewing Expanse and EPIC notes/diagnostics, discussing the care plan with our care time that includes social work, PT/OT, pharmacy, RT, prison and documenting my impressions and plan in the medical record. Subjective Date Seen: 04/03/25 Interval history: No acute events overnight. Pt states she is feeling OK, no abd pain, N/V , no CP or SOB. Exam Narrative: Exam Narrative: Physical exam GENERAL: Comfortable, no acute distress. HEAD AND NECK: Atraumatic, normocephalic CARDIOVASCULAR: RRR. Normal S1, S2. No murmurs. RESPIRATORY: Clear to auscultation B/L. Good air entry B/L. No wheezes or rhonchi. GASTROINTESTINAL: Not distended, not tender to palpation. NEUROLOGY: Alert, awake, oriented X 3. Normal speech. PSYCH: Normal mood, normal affect. Const: Vital Signs, click to edit/add: Vital Signs - 24 hr 04/02/25 20:45 04/02/25 22:30 04/03/25 00:50 Temperature 98.1 F 98.6 F 99 F Pulse Rate [Left P ulse Oximeter] 93 83 Pulse Rate [Right Pulse Oximeter] 89 Respiratory Rate 16 18 18 Blood Pressure [Ri ght Arm] 124/66 Blood Pressure [Ri ght Upper Arm] 124/75 127/70 Pulse Oximetry 97 96 99 Oxygen Delivery Me thod Room Air Room Air Room Air 04/03/25 03:00 04/03/25 09:07 04/03/25 09:15 Temperature 98.2 F 97.7 F Pulse Rate [Left P ulse Oximeter] Pulse Rate [Right Pulse Oximeter] 87 80 82 Respiratory Rate 18 16 16 Blood Pressure [Ri ght Arm] 109/61 117/65 Blood Pressure [Ri ght Upper Arm] Pulse Oximetry 96 96 Oxygen Delivery Me thod Room Air Room Air 04/03/25 11:54 Temperature 98.3 F Pulse Rate [Left P ulse Oximeter] Pulse Rate [Right Pulse Oximeter] 82 Respiratory Rate 16 Blood Pressure [Ri ght Arm] 113/66 Blood Pressure [Ri ght Upper Arm] Pulse Oximetry 97 Oxygen Delivery Me thod Room Air Labs Labs: Laboratory Results - last 24 hr 04/02/25 04/02/25 04/02/25 20:54 21:18 23:20 WBC 13.41 H RBC 3.63 L Hgb 11.0 L Hct 30.4 L MCV 84 MCH 30 MCHC 36 RDW Coeff of [place] 14.6 Plt Count 350 Neut % (Auto) 79.1 H Lymph % (Auto) 13.9 L [place] % (Auto) 4.9 Eos % (Auto) 1.6 Baso % (Auto) 0.1 Neut # (Auto) 10.60 H Lymph # (Auto) 1.90 [place] # (Auto) 0.70 Eos # (Auto) 0.20 Baso # (Auto) 0.00 Abs Immat Gran (auto) 0.10 Imm/Tot Granulo (auto) 0.4 Sodium 131 L Potassium 4.4 Chloride 98 Carbon Dioxide 19 L Anion Gap 14 BUN 78 H Creatinine 1.7 H Estimated Creat Clear 32.46 Estimated GFR 35 Glucose 218 H Lactate 1.4 Calcium 9.6 Magnesium 2.6 Total Bilirubin 1.1 AST 24 ALT 12 Alkaline Phosphatase 74 Total Protein 8.6 H Albumin 4.5 Lipase 435 H Urine Color Yellow Urine Appearance Cloudy A Urine pH 5.5 Ur Specific [place] 1.025 Urine Protein 3+ A Urine Glucose (UA) Trace A Urine Ketones Negative Urine Blood 3+ A Urine Nitrite Negative Urine Bilirubin Negative Urine Urobilinogen 0.2 Ur Leukocyte Esterase 1+ A Urine RBC 2-5 A Urine WBC 50-100 A Ur Squamous Epith Cells Few Urine Bacteria Moderate A
--- NOTE | 2025-04-03 18:57 | PC.NURSE ---
End of Shift: patient pleasant and cooperative, A&O. VSS, afebrile. SpO2 maintained above 90% on RA. Denies pain this shift. Tolerating regular diet. Independent in room.
[2025-04-03] MEDS: ENOXAPARIN 40 MG/0.4 ML INJ SUBCUT (21:34)
[2025-04-04 00:27] VITALS: BP 110/61; PULSE 95; RESP 16; TEMP 36.6; O2SAT 98
[2025-04-04] MEDS: cefTRIAXone 2 GM in 0.9 % SODIUM CHLORIDE Mini-bag 100 ML IVPB (03:22)
[2025-04-04 03:25] VITALS: BP 121/66; PULSE 85; RESP 16; TEMP 36.8; O2SAT 96
--- NOTE | 2025-04-04 05:08 | PC.NURSE ---
Pt pleasant, alert and oriented. VSS. Left arm restricted. Pt denies cough or shortness of breath. Lung sounds clear throughout. Independent. Pt in bed, appears to be resting, call light within reach.
[2025-04-04 06:58] LABS: Hematocrit* 25.6 % (33.0-51.0); Hemoglobin* 9.0 gm/dL (12.0-16.0); Mean Corpuscular HGB Conc 35 gm/dL (32-36); Mean Corpuscular Hemoglobin 30 pg (26-34); Mean Corpuscular Volume 86 fL (80-100); Red Blood Count* 2.98 m/uL (4.00-5.20); White Blood Count* 6.15 K/uL (4.50-11.00)
[2025-04-04 06:59] LABS: Slide Review Reflex No
[2025-04-04 07:00] VITALS: BP 122/66; PULSE 73; RESP 15; TEMP 36.9; O2SAT 99
[2025-04-04 07:26] LABS: Chloride* 107 mmol/L (96-114)
[2025-04-04 07:27] LABS: Potassium* 4.1 mmol/L (3.6-5.1); Sodium* 137 mmol/L (135-149)
[2025-04-04 07:30] LABS: Anion Gap 7 mEq/L (7-15); Blood Urea Nitrogen* 40 mg/dL (7-30); Calcium* 8.9 mg/dL (8.4-10.6); Carbon Dioxide* 23 mmol/L (20-32); Creatinine* 0.9 mg/dL (0.5-1.5); Est. Creatinine Clearance* 61.31; Estimated Glomerular Filt Rate 74 ml/min; Glucose* 176 mg/dL (60-115)
[2025-04-04] MEDS: INSULIN ASPART 100 UNIT/ML SUBCUT ×2 (08:44→12:00)
--- NOTE | 2025-04-04 10:19 | P.DS_ITS ---
DS: Providers Provider Date Seen: 04/04/25 Date of admission: 04/03/25 00:35 Primary care physician: Jorge Urbina MD Admitting Clinician: Ashley Eugene MD Attending Physician on discharge: Marilou Galaviz MD Date of Discharge: 04/04/25 DS: Diagnosis Discharge Diagnosis (1) SUMAN (acute kidney injury): Status: Acute Problem details: - baseline Cr is 0.8, presented w/ Cr 1.7 on 04/02 - treated with IVFs and IV Ceftriaxone for UTI (2) Urinary tract infection: Status: Acute Problem details: - pansensitive E Coli, discharging on course of Cephalexin (3) COVID: Status: Acute Problem details: - no hypoxia or need for COVID specific therapies; symptom onset 03/25/25 (4) Diabetes mellitus with insulin therapy: Status: Acute Problem details: - BG 180-200s during stay, routine PCP f/u - last A1C 10.1 (02/2025) (5) Normocytic anemia: Status: Acute Problem details: - hemoglobin on admission 11.0 --> 9.0 - presumably dilutional with no evidence of bleeding, VS stable - outpatient follow-up DS: Summary Hospital Course Hospital Course: Beatriz was admitted to the hospital on 04/02/2025 for acute kidney injury in the setting of UTI recent COVID infection. She was not hypoxic and did not require any COVID specific therapies. She was noted to have a creatinine of 1.7, with baseline typically less than 1. Comorbidities include insulin-dependent diabetes mellitus, recent A1c greater than 10. Treated with IV fluids and IV ceftriaxone for UTI, culture returned as pansensitive E coli and 04/04/2025 and creatinine normalized to 0.9 on hospital day 2. Noted to have Hgb decrease from 11.0-->9.0 during stay, presumably dilutional. No evidence of acute bleeding. She was medically appropriate for discharge home with close PCP follow-up (for monitoring of hemoglobin and renal function) on 04/04/25. Status at Discharge Functional status at discharge: independent ambulation Overall status at discharge: patient is progressing back to baseline Time Spent with Patient Time attestation: Total time spent providing and/or coordinating discharge services: Time spent: Greater than 30 minutes Exam Narrative: Exam Narrative: GEN: Alert and oriented, nontoxic HEENT: EOMIs bilaterally, no scleral icterus CV: RRR, No concerning murmurs, rubs, or gallops R: LCTA bilaterally without concerning wheezing Ext: wwp, no concerning edema Skin: No concerning skin lesions or rashes on exposed skin Neuro: Nonfocal Psych: Appropriate Const: Vital Signs, click to edit/add: Vital Signs - 24 hr 04/03/25 11:54 04/03/25 15:30 04/03/25 15:38 Temperature 98.3 F 97.9 F Pulse Rate [Right Pulse Oximeter] 82 75 75 Respiratory Rate 16 16 16 Blood Pressure [Ri ght Arm] 113/66 111/57 L Pulse Oximetry 97 100 Oxygen Delivery Me thod Room Air Room Air 04/03/25 19:39 04/03/25 23:00 04/04/25 00:27 Temperature 98.6 F 97.9 F Pulse Rate [Right Pulse Oximeter] 84 95 95 Respiratory Rate 18 16 16 Blood Pressure [Ri ght Arm] 115/55 L 110/61 Pulse Oximetry 98 98 Oxygen Delivery Me thod Room Air Room Air 04/04/25 03:25 04/04/25 07:00 04/04/25 07:00 Temperature 98.2 F 98.5 F Pulse Rate [Right Pulse Oximeter] 85 73 73 Respiratory Rate 16 15 15 Blood Pressure [Ri ght Arm] 121/66 122/66 Pulse Oximetry 96 99 Oxygen Delivery Me thod Room Air Room Air DS: Data Data Completed and Pending Labs on day of discharge: Labs from last 24 hours 04/04/25 06:49 WBC 6.15 RBC 2.98 L Hgb 9.0 L Hct 25.6 L MCV 86 MCH 30 MCHC 35 Plt Count 256 Sodium 137 Potassium 4.1 Chloride 107 Carbon Dioxide 23 Anion Gap 7 BUN 40 H Creatinine 0.9 Estimated Creat Clear 61.31 Estimated GFR 74 Glucose 176 H Calcium 8.9 Preliminary micro results at discharge 04/02/25 23:15 Blood Culture - Preliminary Blood NO GROWTH AFTER 24 HOURS 04/02/25 23:20 Blood Culture - Preliminary Blood NO GROWTH AFTER 24 HOURS Discharge Plan Discharge Disposition: Home, Self-Care Date of Admission: 04/03/25 00:35 Attending Provider on Discharge: Marilou Galavzi Primary Care Provider: Jorge Urbina Condition: Improved Anticipated Discharge Date/Time: 04/04/25 10:09 Discharge Medications: New cephalexin 500 mg capsule 500 mg PO BID 5 Days Qty: 10 0RF Continued aspirin 81 mg tablet,delayed release (DR/EC) 81 mg PO DAILY multivitamin [Daily Multi-Vitamin] Tablet 1 tab PO DAILY (DME) FreeStyle Ramirez 3 Plus Sensor Device See Rx Instructions .Route Qty: 6 3RF Rx Instructions: As directed carvedilol 3.125 mg tablet 3.125 mg PO BID Qty: 180 0RF Rx Instructions: increase to 2 po bid as tolerated to get BP < 140/80 amlodipine 10 mg tablet 10 mg PO DAILY glimepiride 4 mg tablet 4 mg PO DAILY Jardiance 25 mg tablet 25 mg PO DAILY omega-3 acid ethyl esters 1 gram capsule 4 cap PO DAILY Qty: 120 0RF gemfibrozil 600 mg tablet 600 mg PO BID Qty: 180 0RF hydrochlorothiazide 25 mg tablet 25 mg PO DAILY Qty: 90 0RF lisinopril 40 mg tablet 40 mg PO DAILY Qty: 90 0RF metformin 1,000 mg tablet 1,000 mg PO BID Qty: 180 0RF (DME) pen needle, diabetic [Sure Comfort Pen Needle] 31 gauge x 5/16 needle See Rx Instructions .ROUTE .COMPLEX Qty: 100 0RF Dose Instruction: USE DIRECTED Rx Instructions: USE DIRECTED rosuvastatin 40 mg tablet 40 mg PO DAILY Qty: 90 0RF insulin glargine [Basaglar KwikPen U-100 Insulin] 100 unit/mL (3 mL) insulin pen 60 unit subcut QPM Qty: 15 1RF Discharge Orders: Discharge Order (Routine); Ordered 04/04/25 Ordered By: Marilou Galaviz Additional Instructions: Antibiotics for 5 more days at [facility]. Robitussin as needed for cough. Your Hemoglobin did drop a little during stay (likely related to all of the fluid we gave you) - good idea to have Dr. Urbina follow this up in clinic. Activity Level: Activity as Tolerated Discharge Diet: Regular Follow Up Appointments: Jorge Urbina MD [Primary Care Provider, Family Practice] Referral Note: 5-7 days for hospital f/u Forms: Patient Belongings, MyHealth Info Instructions
[2025-04-04 11:00] VITALS: BP 129/66; PULSE 73; RESP 15; TEMP 36.9; O2SAT 99
== END 2025-04-04 13:15 | disposition home or self-care (01) | DRG 460 ==
LOC: ED 04-03 00:27 → MEDSURG 04-03 00:34
PROVIDERS: Family Medicine; Student in an Organized Health Care Education/Training Program; Admitting Provider Internal Medicine; Emergency Provider Student in an Organized Health Care Education/Training Program; PCP Family Medicine; Visit Provider Internal Medicine
DX: N17.9 Acute kidney failure, unspecified (principal); N39.0 Urinary tract infection, site not specified; B96.20 Unspecified Escherichia coli [E. coli] as the cause of diseases classified elsewhere; U07.1 COVID-19; E11.40 Type 2 diabetes mellitus with diabetic neuropathy, unspecified; E11.3299 Type 2 diabetes mellitus with mild nonproliferative diabetic retinopathy without macular edema, unspecified eye; Z79.84 Long term (current) use of oral hypoglycemic drugs; Z79.4 Long term (current) use of insulin; I10 Essential (primary) hypertension; E66.9 Obesity, unspecified; D64.9 Anemia, unspecified; Z85.3 Personal history of malignant neoplasm of breast; Z85.828 Personal history of other malignant neoplasm of skin; Z68.29 Body mass index [BMI] 29.0-29.9, adult
CPT/HCPCS: 36415; 71045; 80048; 80053; 81001; 82962; 83605; 83690; 83735; 85025; 85027; 87040; 87086; 99284; 99285; A9270; J0696; J1650; J1815; J7030; J7050; J7120

== ENCOUNTER 2025-04-18 07:59 | Outpatient (CLI) | payer BC, SELFPAY | END 2025-04-18 08:00 | disposition home or self-care (01) | LOC: NFLDREF 04-21 16:01 | PROVIDERS: PCP Family Medicine; Referring Provider Family Medicine; Visit Provider Family Medicine | DX: E11.9 Type 2 diabetes mellitus without complications (principal); Z79.4 Long term (current) use of insulin; E78.1 Pure hyperglyceridemia; I10 Essential (primary) hypertension | CPT/HCPCS: 80048; 80061; 80076; 83540; 83550 ==

== ENCOUNTER 2025-04-30 16:33 | Outpatient (CLI) | payer BC, SELFPAY | END 2025-04-30 16:34 | disposition home or self-care (01) | LOC: NFLDREF 05-03 15:02 | PROVIDERS: PCP Family Medicine; Referring Provider Family Medicine; Visit Provider Family Medicine | DX: R80.9 Proteinuria, unspecified (principal); E11.9 Type 2 diabetes mellitus without complications; Z79.4 Long term (current) use of insulin | CPT/HCPCS: 82570; 84156 ==

== ENCOUNTER 2025-05-08 07:45 | Outpatient (CLI) | payer BC, SELFPAY | END 2025-05-08 07:46 | disposition home or self-care (01) | LOC: NFLDREF 05-11 04:23 | PROVIDERS: PCP Family Medicine; Referring Provider Family Medicine; Visit Provider Family Medicine | DX: E11.9 Type 2 diabetes mellitus without complications (principal); E78.1 Pure hyperglyceridemia; I10 Essential (primary) hypertension; Z79.4 Long term (current) use of insulin | CPT/HCPCS: 80053; 80061 ==

== ENCOUNTER 2025-05-14 12:47 | Outpatient (CLI) | payer BC, SELFPAY | END 2025-05-14 12:48 | disposition home or self-care (01) | LOC: RAD 12:47 | PROVIDERS: PCP Family Medicine; Visit Provider Family Medicine | DX: R01.1 Cardiac murmur, unspecified (principal) | CPT/HCPCS: 93306 ==